=== PATIENT | female | born 1955 | race Caucasian/White ===

== ENCOUNTER 2018-01-05 09:34 | Emergency (ER) | payer OTHER, SELFPAY ==
--- NOTE | 2018-01-05 09:37 | EKG12_ITS ---
Test Reason : Blood Pressure : / mmHG Vent. Rate : 092 BPM Atrial Rate : 092 BPM P-R Int : 168 ms QRS Dur : 078 ms QT Int : 360 ms P-R-T Axes : 047 009 027 degrees QTc Int : 445 ms Normal sinus rhythm Normal ECG Confirmed by EUGENIO ROA, KENNETH ([id number]), assistant editor JULIANNA COWART ([id number]) on 01/08/2018 1:59:09 PM Referred By: Confirmed By:KENNETH BECKER MD
[2018-01-05 09:41] VITALS: BP 153/87; PULSE 100; RESP 19; TEMP 36.9; O2SAT 98; BMI 24.2
[2018-01-05 09:45] VITALS: BP 142/91; PULSE 95; RESP 14; O2SAT 96
--- NOTE | 2018-01-05 09:46 | US_ITS ---
STUDY: ABDOMINAL ULTRASOUND - RIGHT UPPER QUADRANT REASON FOR VISIT: Female, 62 years old. One-day history of right upper quadrant pain. TECHNIQUE: Ultrasound evaluation of the right upper quadrant was performed with real-time and static roche-scale imaging. TECHNICAL QUALITY: Adequate. COMPARISON: Comparison is made with prior study dated March 22, 2012. FINDINGS: Liver: The liver measures 15.8 cm. There is normal echogenicity of the liver. The bile ducts are within normal limits. There is hepatic color flow. The direction of portal flow is hepatopetal. There is no demonstrated mass lesion. Gallbladder: Normal distended gallbladder. The gallbladder wall measures 2.9 mm. There is a negative sonographic Gutierrez's sign. There is no pericholecystic fluid. There are no gallstones. Common Bile Duct (C.B.D.): The common bile duct measures 3.0 mm. Pancreas: Normal size of the head, body and tail of the pancreas. There is normal echogenicity of the pancreas. There is no demonstrated pancreatic mass or cyst. Right Kidney: Normal size of the right kidney. The right kidney measures 9.9 cm x 5.1 cm x 5.1 cm. Normal renal cortex. The right cortex measures 1.2 cm. There is no demonstrated renal mass or cyst. There is no right hydronephrosis. US/Gallbladder IMPRESSION: Normal right upper quadrant ultrasound examination. Electronically Signed: Nathaniel Lundy MD at 10:47 EDT Tel [phone], Service support ,
--- NOTE | 2018-01-05 09:49 | ED.VISSUMM ---
- ER Visit Summary Date of Service: 01/05/18 Chief Complaint: [] Right upper quadrant pain began 7 AM today History of Present Illness: The patient is a 62 F [] past history is for distant stroke with no deficits, and very good health went to sleep feeling fine, woke this morning with pain to the right upper quadrant, she has had no vomiting no fever no cough normal bowel bladder habits she has no history of cardiovascular pulmonary GI ailments of any kind she does have hypertension she takes amitriptyline to prevent headaches, she believes she is on an antacid proton pump type medicine, she has been eating well without difficulty, no fever no cough no exposure tainted food or sick individuals Physical Examination: [] Her vital signs are within normal range she is resting comforting the bed point directly to her right upper quadrant for pain head neck chest unremarkable the abdomen there is vague pain to the right upper quadrant there is no rebound guarding organomegaly upper lower extremities unremarkable back unremarkable neurologically normal Test Results: [] Emergency Department Course and Treatment: screening labs ultrasound pain management The patient's lab studies and UA are generally unremarkable see those reports, her right upper quadrant ultrasound showed nothing acute, she was sent for abdominal CT, the abdominal CT show what appear to be fine gallstones sludge, nothing else acute except some notation of an abnormality that was suspicious in the left kidney, she was then sent for renal ultrasound and that renal scan showed what appeared to be normal cyst left kidney, please see all those reports Evaluation she is resting comfortably she has no physical findings feels improved have explained all the test results to her the need for follow-up with her physicians the concept of the gallstones potentially causing biliary colic versus other causes of her pain should be followed by her family physician also given referral Dr. Rodriguez human resource consultant for surgery and she will refer return for change in symptoms she agrees to this plan Treatment Plan: [] Disposition: [] Home stable Impression: [] Right upper quadrant pain suspect related to gallstones, gallstone seen on CAT scan, cyst left kidney This note was generated with [employer] dictation software. It may contain incorrect words, spelling, and punctuation that were not noted in review of the chart prior to signing ED Disposition - Plan for ED Patient: Chief Complaint: Chest Pain Referrals: Hipolito Ayers PA [PHYSICIAN MEAT SALES AND STORAGE MANAGER] -
[2018-01-05] MEDS: Ondansetron 4 MG/2 ML Vial IV (09:58)
[2018-01-05] MEDS: 0.9% Normal Saline 1,000 ML 125 ML IV (09:58)
[2018-01-05] MEDS: Morphine 4 MG/ML Syringe IV (09:58)
[2018-01-05 10:03] LABS: Absolute Lymphocyte Count 1.76 X10^3/ul (0.83-4.51); Absolute Neutrophil Count 6.5 X10^3/uL (2.0-7.7); Basophil# 0.03 X10^3/uL; Basophil% 0.3 % (0-1); Eosinophil# 0.17 X10^3/uL; Eosinophils% 1.9 % (0-5); Hemoglobin 12.8 g/dl (12.0-15.0); Lymphocyte # 1.76 X10^3/ul (4.0); Lymphocyte % 19.4 % (19-41); Mean Corpuscular Volume 84.4 fL (81-99); Monocyte# 0.63 X10^3/uL; Monocyte% 6.9 % (0-10); Neutrophil # 6.48 X10^3/uL (2.7-7.7); Neutrophil % 71.4 % (47-70); Platelet Count 340 K/mm3 (150-450); RBC Distribution Width CV 13.6 % (11.6-14.6); RBC Distribution Width SD 41.9 fl (35.1-43.9); Red Blood Count 4.74 M/mm3 (4.2-5.4); White Blood Count 9.1 K/mm3 (4.4-11.0)
[2018-01-05 10:18] LABS: AST(SGOT) 21 U/L (15-37); Alanine Aminotransfer ALT/SGPT 31 U/L (13-56); Albumin, Serum 4.2 g/dL (3.2-5.0); Alkaline Phosphatase 84 U/L (45-117); Anion Gap 7 (5-15); BUN 13 mg/dL (7-18); BUN/Creat Ratio 15.5 RATIO (10-20); Bilirubin, Direct 0.12 mg/dL (0.00-0.30); Calcium,Total 8.9 mg/dL (8.5-10.1); Chloride 105 mmol/L (98-107); Creatinine, Serum 0.84 mg/dL (0.55-1.02); EST Glomerular Filtration Rate 73 mL/min (>60); Est Glom Filt Rate - Afr Amer 88 mL/min (>60); Estimated Creatinine Clearance 63.34 ml/min; Globulin 3.6 g/dL (2.2-4.2); Glucose 108 mg/dL (74-106); Lipase 84 U/L (73-393); Potassium 3.9 mmol/L (3.5-5.1); Protein, Total 7.8 g/dL (6.4-8.2); Sodium Level 139 mmol/L (136-145)
[2018-01-05 10:28] LABS: POSITIVE COUNT NO; POSITIVE DIFFERENTIAL NO; POSITIVE MORPHOLOGY NO
[2018-01-05] MEDS: morphine 8 MG/ML Syringe IV (10:57)
[2018-01-05 11:00] VITALS: BP 144/81; PULSE 78; RESP 14; O2SAT 97
--- NOTE | 2018-01-05 11:11 | CT_ITS ---
STUDY: CT ABDOMEN AND PELVIS WITHOUT CONTRAST REASON FOR EXAM: Female, 62 years old. Right upper quadrant pain. RADIATION DOSAGE (If Supplied By Facility): CTDIvol = ( 8.64 ) mGy, DLP = ( 453.50 ) mGycm TECHNIQUE: Transaxial images were obtained from the dome of the diaphragm to the symphysis pubis without oral contrast, and without intravenous contrast. Sagittal and coronal images were reconstructed. Individualized dose optimization techniques were used for this CT. COMPARISON: Comparison is made with prior study dated October 16, 2008. FINDINGS: Mild linear scarring at the lung bases. Coronary artery calcification. Normal liver. I suspect small layering gallstones along the dependent portion of the gallbladder. There are multiple benign calcified granulomata of the spleen. Normal pancreas. Normal bilateral adrenal glands. Normal right kidney. Suspect a 2.2 cm complex cystic mass arising from the superior lateral aspect of the left kidney. Correlation with enhanced T scan of the abdomen or ultrasound is recommended for further evaluation. Normal visualized stomach. Normal small intestine. There are multiple colonic diverticula consistent with diverticulosis. The appendix is visualized and appears normal. There is diffuse atherosclerotic calcification of the abdominal aorta, without a demonstrated aneurysm. Normal inferior vena cava. Normal retroperitoneum. Normal urinary bladder. There is absence of the uterus consistent with a prior hysterectomy. Normal abdominal wall. There are diffuse degenerative changes of the visualized lumbar spine. CT/Abdomen/Pelvis without Cont IMPRESSION: Small layering gallstones along the dependent portion of the gallbladder. Findings suggest a complex cystic structure in the left kidney as described. Correlation with ultrasound is recommended. Electronically Signed: Nathaniel Lundy MD at 11:32 EDT Tel [phone], Service support ,
--- NOTE | 2018-01-05 11:54 | US_ITS ---
STUDY: RENAL ULTRASOUND - COMPLETE REASON FOR EXAM: Female, [address] Evaluate left renal lesion TECHNIQUE: Ultrasound evaluation of the kidneys was performed with real-time and static chahal-scale imaging. COMPARISON: Noncontrast enhanced CT. FINDINGS: RIGHT KIDNEY: Normal location of the right kidney, which is normal in size. The right kidney measures 10.0 cm. There is a normal cortex of the right kidney. The renal cortex measures 1.0 cm. There is no right renal mass or cyst. There are no right renal calculi. There is echogenic focus suggesting prominent vessel. There is no right hydronephrosis. DISTAL RIGHT URETER: There is non-visualization of the distal right ureter. There is no demonstrated right ureterovesical junction calculus. There is no demonstrated right ureteral jet. LEFT KIDNEY: Normal location of the left kidney, which is normal in size. The left kidney measures 10.1 cm. There is a normal cortex of the left kidney. The renal cortex measures 1.6 cm. There is 2.3 cm simple cyst at the upper aspect. There are no left renal calculi. There is no left hydronephrosis. DISTAL LEFT URETER: There is non-visualization of the distal left ureter. There is no demonstrated left ureterovesical junction calculus. There is a visualized left ureteral jet. BLADDER: The distended urinary bladder has a volume of 31 ml. There is a normal wall thickness of the distended urinary bladder. There is no demonstrated mass within the urinary bladder. There are no demonstrated bladder calculi. US/Kidney and Bladder IMPRESSION: Simple cyst of the left kidney. No hydronephrosis. Electronically Signed: Dante Bhatti MD at 13:06 EDT , Service support ,
[2018-01-05 11:57] LABS: Bacteria 0 SEEN /hpf (None Seen); Mucous, Urine 0 SEEN /hpf (<or=2+); Red Blood Cells-Urine 0 SEEN /hpf (0-5)
[2018-01-05 11:59] LABS: Color, Urine Yellow (Yellow); Glucose, Dipstick Normal (Normal); Ketone-Dipstick Negative (Negative); Leukocyte Esterase-Dipstick 25 /ul (Negative); Nitrite-Dipstick Negative (Negative); Occult Blood-Urine 10 /ul (Negative); Protein-Dipstick Negative (Negative); Urine Bilirubin Dipstick Negative (Negative); Urine Clarity Clear (Clear); Urine Urobilinogen Normal (Normal); Urine pH 6.5 (5.0 - 8.0)
[2018-01-05 12:08] LABS: Squamous Epithelial Cells - UA 0-5 SEEN /hpf (5-10); White Blood Cells 0-5 SEEN /hpf (0-5)
[2018-01-05 12:57] VITALS: BP 100/69; PULSE 84; RESP 15; O2SAT 92
--- NOTE | 2018-01-05 13:17 | ED.DEP ---
ED Disposition - Plan for ED Patient: Chief Complaint: Chest Pain Instructions: ED Abdominal Pain Gallstone Poss, ED Abdominal Pain Unkn Cause Referrals: Hipolito Ayers PA [PHYSICIAN [employer]AT[employer]NS[employer]] - Gigi Rodriguez MD [STAFF PHYSICIAN] - Aravind Phelps MD [STAFF PHYSICIAN] -
[2018-01-05 13:31] VITALS: BP 113/75; PULSE 81; RESP 15; O2SAT 94
== END 2018-01-05 13:55 | disposition home or self-care (01) ==
PROVIDERS: Emergency Provider Emergency Medicine; Family Provider Preventive Medicine Occupational Medicine; PCP Preventive Medicine Occupational Medicine
DX: R10.11 Right upper quadrant pain (principal); K80.80 Other cholelithiasis without obstruction; N28.1 Cyst of kidney, acquired
CPT/HCPCS: 74176; 76705; 76770; 80048; 80076; 81001; 83690; 84484; 85025; 93005; 96361; 96374; 96375; 99283; J7030; J2405

== ENCOUNTER → 2018-02-16 07:06 | Outpatient (CLI) | payer OTHER, SELFPAY ==
--- NOTE | 2018-02-16 07:09 | BI_ITS ---
MAMMOGRAPHY - BILATERAL SCREENING REASON FOR EXAM: Female, 62 years old. Routine annual screening examination. PERTINENT HISTORY: Non-contributory. TECHNIQUE: Digital bilateral breast girish (3D mammographic acquisition) in the CC and MLO projections. 2-D mediolateral oblique (MLO) and craniocaudad (CC) views of both breasts were obtained. CAD: Full Field Digital Mammography with Computer Added Detection was performed. COMPARISON: Comparison is made with prior study dated August 11, 2015 and January 21, 2014. FINDINGS: Breast Composition: There are scattered areas of fibroglandular density. There are no dominant masses or suspicious calcifications. Asymmetry of breast tissue where more breast tissue is seen in the upper outer quadrant of the left breast as compared to the right breast. This is slightly more prominent than on prior examination. Correlation with ultrasound is recommended. No other significant abnormalities are identified. BI/SCREENING MAMM (CAD), BILAT IMPRESSION: Asymmetry of breast tissue with more breast tissue is seen in the upper outer quadrant of the left breast as compared to the right side. Correlation with ultrasound is recommended. ASSESSMENT CATEGORY: BIRADS Category 0: Incomplete. Need additional imaging evaluation. A letter regarding these results will be sent to the patient by the facility within 30 days. Approximately 10% of breast cancers are not detected by mammography. A normal mammogram should not delay biopsy of a clinically suspicious abnormality. [id number] Electronically Signed: Nathaniel Lundy MD at 12:57 EDT Tel [phone], Service support ,
== END ==
PROVIDERS: Family Provider Preventive Medicine Occupational Medicine; PCP Preventive Medicine Occupational Medicine; Visit Provider Obstetrics & Gynecology
DX: Z12.31 Encounter for screening mammogram for malignant neoplasm of breast (principal)
CPT/HCPCS: 77063; 77067

== ENCOUNTER → 2018-02-21 15:11 | Outpatient (CLI) | payer OTHER, SELFPAY ==
--- NOTE | 2018-02-21 15:13 | US_ITS ---
STUDY: ULTRASOUND BREAST - LEFT REASON FOR EXAM: Female, 62 years old. Abnormal screening mammogram. TECHNIQUE: Axial and longitudinal images of the LEFT breast were performed with a high resolution ultrasound transducer. COMPARISON: Comparison is made with prior mammogram dated February 16, 2018. FINDINGS: LEFT Breast: The upper outer aspect of the left breast was examined by ultrasound. There is homogeneous fibroglandular tissue. No solid or cystic mass lesion is seen. US/Breast Limited Unilateral IMPRESSION: No sonographic abnormality is seen. ASSESSMENT CATEGORY: BIRADS Category 1: Negative. A letter regarding these results will be sent to the patient by the facility within 30 days. Electronically Signed: Nathaniel Lundy MD at 8:02 EDT Tel [phone], Service support ,
== END ==
PROVIDERS: Family Provider Preventive Medicine Occupational Medicine; PCP Preventive Medicine Occupational Medicine; Visit Provider Obstetrics & Gynecology
DX: R92.8 Other abnormal and inconclusive findings on diagnostic imaging of breast (principal)
CPT/HCPCS: 76642

== ENCOUNTER 2018-05-02 17:29 | Observation (INO) | payer OTHER, SELFPAY ==
--- NOTE | 2018-04-30 12:03 | EKG12_ITS ---
Test Reason : PRE-OP Blood Pressure : / mmHG Vent. Rate : 084 BPM Atrial Rate : 084 BPM P-R Int : 178 ms QRS Dur : 080 ms QT Int : 354 ms P-R-T Axes : 060 021 046 degrees QTc Int : 418 ms Normal sinus rhythm Normal ECG Confirmed by RAJAT ROA, MANUEL ([id number]), visual effects editor MELISSA HERNANDEZ ([id number]) on 05/01/2018 4:16:45 PM Referred By: Aristides Pike Confirmed By:MANUEL EARL MD
--- NOTE | 2018-04-30 12:18 | RAD_ITS ---
STUDY: X-RAY CHEST REASON FOR EXAM: Female, 62 years old. Preoperative evaluation. TECHNIQUE: PA and lateral views of the chest. COMPARISON: None. FINDINGS: The lungs are clear and expanded. There is no demonstrated pleural abnormality. Normal size heart. Normal mediastinum and dax. Normal visualized pulmonary arteries. Normal visualized aortic arch and descending thoracic aorta. There are mild degenerative changes of the visualized thoracic spine. Normal visualized ribs, clavicles, and shoulders. There is no demonstrated abnormality of the visualized soft tissue structures of the upper abdomen. RAD/Chest PA and Lateral IMPRESSION: No acute abnormality is seen. Electronically Signed: Nathaniel Lundy MD at 12:55 EST Tel [phone], Service support ,
[2018-04-30 12:21] LABS: Hematocrit 39.4 % (37-47); Hemoglobin 12.6 g/dl (12.0-15.0); Mean Corpuscular Hgb 26.9 pg (27.0-32.0); Mean Platelet Vol. 8.9 fl (6.2-12.0); Platelet Count 337 K/mm3 (150-450); RBC Distribution Width CV 13.6 % (11.6-14.6); RBC Distribution Width SD 41.6 fl (35.1-43.9); Red Blood Count 4.69 M/mm3 (4.2-5.4); White Blood Count 6.9 K/mm3 (4.4-11.0)
[2018-04-30 12:25] LABS: Scan Indicated on CBC? Y/N NO
[2018-04-30 12:36] LABS: Partial Thromboplast Time 32.5 Seconds (24.1-36.2)
[2018-04-30 13:06] LABS: Anion Gap 13 (5-15); BUN 15 mg/dL (7-18); BUN/Creat Ratio 15.5 RATIO (10-20); Calcium,Total 8.9 mg/dL (8.5-10.1); Chloride 104 mmol/L (98-107); Creatinine, Serum 0.97 mg/dL (0.55-1.02); EST Glomerular Filtration Rate 62 mL/min (>60); Est Glom Filt Rate - Afr Amer 75 mL/min (>60); Glucose 119 mg/dL (74-106); Potassium 3.6 mmol/L (3.5-5.1); Sodium Level 140 mmol/L (136-145)
[2018-05-02] VITALS (7 sets, daily range): BP systolic 83–137; BP diastolic 54–87; PULSE 64–91; RESP 12–16; TEMP 36.1–36.8; O2SAT 93–95; BMI 26.7; BMI 27.0
[2018-05-02] MEDS: Vasopressin 20 UNITS/ML Vial (09:33)
--- NOTE | 2018-05-02 09:40 | VAGMU_PTH ---
PATIENT: KANIKA LOVELL LOC: [facility] U#:[id number] AGE/SX: 62/F ROOM: [facility] RE05/02/[address]: Dr. Aristides Pike MD : [id number] BED: 1 DIS: 05/03/2018 SPEC #: [id number] RECD: 05/02/18 11:52 STATUS: JUANA REAnnita #: [id number] ELLEN: 05/02/18 09:[address]: Aristides Pike DEPT: SURGICAL PATHOLOGY RECD BY: Juan Antonio Tejeda ENTERED: 05/02/18 12:14 SP TYPE: VAG MUCOSA OTHR DR: Dr. Espinoza Lora, DO Tissues: Vagina, NOS Procedures: Surgery Specimen Level II HEADER OPERATION: Repair, anterior and posterior PRE-OP DIAGNOSIS: Cystocele and rectocele TISSUE SUBMITTED: Vaginal mucosa MICROSCOPIC DIAGNOSIS Vaginal mucosa, anterior and posterior repair, excision: Mild chronic inflammation. No evidence of dysplasia. AM:gregoria 05/03/18 MICROSCOPIC DESCRIPTION Slides are reviewed. GROSS DESCRIPTION Received in fixative is one container labeled with the patient's name and designated vaginal mucosa. The specimen consists of five variable size pieces of ayala mucosal tissue measuring in aggregate 8 x 4 x 0.7 cm. No mucosal lesion is identified. Multiple instrumentation su are noted. Inspector Finishing sections are submitted in one cassette. / SJ:gregoria 05/02/18 TC:3 CPT: 61677
--- NOTE | 2018-05-02 09:57 | DCINST_ITS ---
You will use the following diet at home:: No restrictions Your food should be the consistency of: Regular Discharge Activity: Return to Normal Activity, May Drive, May not drive while taking narcotic pain medications., May Shower Return to work on:: 05/16/18 May shower in (days): 0 May resume sexual activity in: 6 weeks Call your doctor if your incision/area has: Sudden Increased Bleeding, Increased Pain/ Swelling, Foul Smelling Discharge Call your doctor if you observe: Fever of 101 or Higher, Inability to urinate, Inability to have a bowel movement, Using more than one pad per hour, Shortness of breath, Chest pain, Calf discomfort, Uncontrolled pain Cleanse incision/area with: Soap & Water Allergies/Adverse Reactions: Allergies No Known Allergies Allergy (Verified 05/02/18 08:03) Medications to take at Discharge Amitriptyline HCl 50 mg PO DAILY 11/17/13 Aspirin [Aspirin, Baby] 81 mg PO DAILY@0800 03/23/14 Famotidine [Pepcid] 20 mg PO DAILY 10/17/16 L.acidoph,Paracasei, B.lactis [Probiotic] 1 each PO DAILY 10/17/16 Multivit with Calcium,Iron,Min [Multiple Vitamins For Women] 1 tab PO DAILY 10/17/16 Pravastatin Sodium 40 mg PO DAILY 10/17/16 Quinapril HCl [Accupril] 40 mg PO DAILY 10/17/16 Acetaminophen [Tylenol Tablet] 650 mg PO Q4H PRN PRN #0 tab 10/19/16 Lorazepam [Ativan] 1 mg PO TID PRN #10 tab 10/27/16 Ibuprofen 600 mg PO 4X/DAY #30 tab 05/02/18 Oxycodone [Oxyir] 5 mg PO Q6H PRN PRN 7 Days #20 tab 05/02/18 The following prescriptions were given: Oxycodone [Oxyir] 5 mg PO Q6H PRN PRN 7 Days #20 tab PRN Reason: Severe Pain (6-03/14) Ibuprofen 600 mg PO 4X/DAY #30 tab Primary Care Physician: Espinoza Lora DO [Primary Care Provider] - Test Results: Test results from this visit will be discussed in further detail at your follow- up appointment, if applicable. Please Follow Up With: Aristides Pike MD When: one week Proposed Discharge Date: 05/02/18
--- NOTE | 2018-05-02 09:58 | PCM.OPRPT ---
Report of Operation Date of Procedure: 05/02/18 Pre-Operative Diagnosis: Cystocele, Rectocele Post-Operative Diagnosis: Same Surgery/Procedure Performed:: Anterior and Posterior Repair Description of Surgical Findings:: Cystocele (moderate), Rectocele (Mild) retail furniture sales: Cecilia Whelan Type of Anesthesia:: General Anesthesiologist: Shaun Dent Special Medications: none Specimen's removed: vaginal mucosa Drains: none Estimated Blood Loss (mL): 10cc Fluids Replaced: 1200cc Description of Procedure: Lauren was taken to the OR with IV running. She was given two grams of Cefotetan intravenously for surgical prophylaxis. SCDs were in place and operational throughout the case and into recovery. General anesthesia was introduced without complication. She was prepped and draped in the dorsal lithotomy position. The bladder was then drained. A weighted speculum was placed in the posterior vagina. An Allis clamp was placed on the vaginal mucosa about 1.5 cm distal to the urethral meatus. A second Allis clamp was placed at the apex of the cystocele. The vaginal mucosa was then infiltrated superficially with a dilute pitressin solution. A scalpel was used to incise the vaginal mucosa between to previously placed Allis clamps. The vaginal mucosa was then dissected laterally on each side thus exposing the cystocele. Using a series of 0-Vicryl box stitches the cystocele was reduced. The vaginal mucosa was trimmed and reapproximated with interrupted sutures of 0-Vicryl suture. A chun catheter was placed and urine was noted to be clear. It was then removed. Attention was then directed to the posterior vagina. The rectocele was then grasped with two Allis clamps at the distal and proximal portions of the vagina in the midline. The vaginal mucosa was infiltrated with a dilute pitressin solution. A scalpel was used to incise the vagina between the two Allis clamps. The vaginal mucosa was then dissected bilaterally thus revealing the rectocele. The muscle tissues were reapproximated thus reducing the rectocele. The vaginal mucosa was trimmed and then reapproximated with 0-Vicryl interrupted sutures. Hemostasis was good. Sponge, lap, needle and instrument counts were correct. She was reversed from anesthesia and taken to the recovery room in stable condition. Grafts/Implants Used: none - Complications none - Admit VTE Documentation VTE Present on Admission: No VTE Mechan Device Prophylaxis: SCD's VTE Pharm Prophylaxis ordered?: No
--- NOTE | 2018-05-02 10:05 | OP.PCM_ITS ---
Report of Operation Date of Procedure: 05/02/18 Pre-Operative Diagnosis: Cystocele, Rectocele Post-Operative Diagnosis: Same Surgery/Procedure Performed:: Anterior and Posterior Repair Description of Surgical Findings:: Cystocele (moderate), Rectocele (Mild) cream dumper: Cecilia Whelan Type of Anesthesia:: General Anesthesiologist: Shaun Dent Special Medications: none Specimen's removed: vaginal mucosa Drains: none Estimated Blood Loss (mL): 10cc Fluids Replaced: 1200cc Description of Procedure: Lauren was taken to the OR with IV running. She was given two grams of Cefotetan intravenously for surgical prophylaxis. SCDs were in place and operational throughout the case and into recovery. General anesthesia was introduced without complication. She was prepped and draped in the dorsal lithotomy position. The bladder was then drained. A weighted speculum was placed in the posterior vagina. An Allis clamp was placed on the vaginal mucosa about 1.5 cm distal to the urethral meatus. A second Allis clamp was placed at the apex of the cystocele. The vaginal mucosa was then infiltrated superficially with a dilute pitressin solution. A scalpel was used to incise the vaginal mucosa between to previously placed Allis clamps. The vaginal mucosa was then dissected laterally on each side thus exposing the cystocele. Using a series of 0-Vicryl box stitches the cystocele was reduced. The vaginal mucosa was trimmed and reapproximated with interrupted sutures of 0-Vicryl suture. A chun catheter was placed and urine was noted to be clear. It was then removed. Attention was then directed to the posterior vagina. The rectocele was then grasped with two Allis clamps at the distal and proximal portions of the vagina in the midline. The vaginal mucosa was infiltrated with a dilute pitressin solution. A scalpel was used to incise the vagina between the two Allis clamps. The vaginal mucosa was then dissected bilaterally thus revealing the rectocele. The muscle tissues were reapproximated thus reducing the rectocele. The vaginal mucosa was trimmed and then reapproximated with 0- Vicryl interrupted sutures. Hemostasis was good. Sponge, lap, needle and instrument counts were correct. She was reversed from anesthesia and taken to the recovery room in stable condition. Grafts/Implants Used: none - Complications none - Admit VTE Documentation VTE Present on Admission: No VTE Mechan Device Prophylaxis: SCD's VTE Pharm Prophylaxis ordered?: No
[2018-05-02] MEDS: Lactated Ringers 1,000 ML 125 ML IV ×2 (10:56→21:38)
[2018-05-02] MEDS: Pravastatin 40 MG Tablet PO (21:42)
[2018-05-02] MEDS: Amitriptyline 25 MG Tablet 50 MG PO (21:43)
[2018-05-03 03:30] VITALS: BP 134/73; PULSE 89; RESP 16; TEMP 37.1; O2SAT 96
[2018-05-03] MEDS: Lactated Ringers 1,000 ML 125 ML IV (05:23)
[2018-05-03] MEDS: 0.9% NaCl Peripheral Flush Adult/Peds IV (05:24)
[2018-05-03 06:32] LABS: Hematocrit 34.5 % (37-47); Hemoglobin 11.1 g/dl (12.0-15.0); Mean Corp Hgb Conc 32.2 g/gl (32-36); Mean Corpuscular Hgb 27.3 pg (27.0-32.0); Mean Platelet Vol. 9.5 fl (6.2-12.0); Platelet Count 341 K/mm3 (150-450); RBC Distribution Width CV 13.5 % (11.6-14.6); RBC Distribution Width SD 41.6 fl (35.1-43.9); Red Blood Count 4.06 M/mm3 (4.2-5.4)
[2018-05-03 06:36] LABS: Creatinine, Serum 0.77 mg/dL (0.55-1.02); Estimated Creatinine Clearance 66.42 ml/min
[2018-05-03 06:37] LABS: EST Glomerular Filtration Rate 80 mL/min (>60); Est Glom Filt Rate - Afr Amer 97 mL/min (>60); Scan Indicated on CBC? Y/N NO
--- NOTE | 2018-05-03 08:03 | PCM.PN.OB ---
Patient Problems: Active and Suspected Problems Cystocele, midline (Acute) Subjective: Not able to void yet but has only had catheter out for one hour. No complaints of pain. No significant vaginal bleeding. Objective: Afeb VSS. Hgb appropriate. Creatinine normal this morning. - Physical Exam General: Alert, Oriented x3, Cooperative, No apparent distress Lungs: Clear to auscultation, Normal air movement Cardiovascular: Regular rate, Regular Rhythm Abdomen: Soft, Non Tender, Non-Distended Extremities: No edema Skin: No rashes Neurological: Neuro grossly intact Psych/Mental Status: Normal Affect Vital Signs Temp Pulse Resp BP Pulse Ox 98.8 F 89 16 134/73 H 96 05/03/18 03:30 05/03/18 03:30 05/03/18 03:30 05/03/18 03:30 05/03/18 03:30 Oxygen Flow Rate (L/min) 1 Oxygen Delivery Method Room Air Weight: 162 lb 7.691 oz Body Mass Index (BMI) 27.0 Finger Stick Blood Glucose 92 Intake and Output for Last 24 Hours 05/01/18 05/02/18 05/03/18 23:59 23:59 23:59 Intake Total 4942 / 4942 680 / 680 Output Total 1500 / 1500 500 / 500 Balance 3442 / 3442 180 / 180 Laboratory Tests Past 24 Hrs 05/03/18 05/03/18 06:10 06:10 WBC 13.0 H RBC 4.06 L Hgb 11.1 L Hct 34.5 L MCV 85.0 MCH 27.3 MCHC 32.2 RDW 13.5 RDW Differential 41.6 Plt Count 341 MPV 9.5 Creatinine 0.77 Estim Creat Clear Calc 66.42 Est GFR (MDRD) Af Amer 97 Est GFR (MDRD) Non-Af 80 Medical Necessity - Tobacco Use Smoking Status: Former smoker Assessment/Plan All Active Problems Cystocele (Acute) Cystocele with prolapse (Acute) Cystocele, midline (Acute) CVA (cerebral vascular accident) (Acute) TIA (transient ischemic attack) (Acute) POD #1 s/p cystocele and rectocele repair. No spontaneous void yet. Urine output is adequate. If unable to void will discharge home with catheter and will remove next week. Discharge instructions and warnings given.
--- NOTE | 2018-05-03 08:09 | PCM.DC.SUM ---
Discharge Date and Diagnosis - Problem List Patient Problems: Active and Suspected Problems Cystocele, midline (Acute) Date of Admission: 05/02/18 Date of Discharge: 05/03/18 - Primary Discharge Diagnosis Active and Suspected Problems Cystocele, midline (Acute), s/p anterior and posterior vaginal repair - Secondary Discharge Diagnosis Chronic Problems HTN (hypertension) (Chronic) Hyperlipidemia (Chronic) Migraine (Chronic) Hospital Course and Treatment Operations: - - cystocele and rectocele repair Summary of Care Provided: The patient is a 62 year old F [admitted for repair of cystocele and rectocele. These were performed without complication. There was transient inability to void. She was discharged home on POD#1.] Patient Problems: Active and Suspected Problems Cystocele, midline (Acute) - Physical Exam Vital Signs Temp Pulse Resp BP Pulse Ox 98.8 F 89 16 134/73 H 96 05/03/18 03:30 05/03/18 03:30 05/03/18 03:30 05/03/18 03:30 05/03/18 03:30 Oxygen Flow Rate (L/min) 1 Oxygen Delivery Method Room Air Weight: 162 lb 7.691 oz Body Mass Index (BMI) 27.0 Finger Stick Blood Glucose 92 Intake and Output for Last 24 Hours 05/01/18 05/02/18 05/03/18 23:59 23:59 23:59 Intake Total 4942 / 4942 680 / 680 Output Total 1500 / 1500 500 / 500 Balance 3442 / 3442 180 / 180 Laboratory Tests Past 24 Hrs 05/03/18 05/03/18 06:10 06:10 WBC 13.0 H RBC 4.06 L Hgb 11.1 L Hct 34.5 L MCV 85.0 MCH 27.3 MCHC 32.2 RDW 13.5 RDW Differential 41.6 Plt Count 341 MPV 9.5 Creatinine 0.77 Estim Creat Clear Calc 66.42 Est GFR (MDRD) Af Amer 97 Est GFR (MDRD) Non-Af 80 Discharge Activity: Return to Normal Activity, May Drive, May not drive while taking narcotic pain medications., May Shower Return to work on:: 05/16/18 May shower in (days): 0 May resume sexual activity in: 6 weeks Call your doctor if your incision/area has: Sudden Increased Bleeding, Increased Pain/ Swelling, Foul Smelling Discharge Call your doctor if you observe: Fever of 101 or Higher, Inability to urinate, Inability to have a bowel movement, Using more than one pad per hour, Shortness of breath, Chest pain, Calf discomfort, Uncontrolled pain Cleanse incision/area with: Soap & Water Catheter: Whitten to leg bag - if no void Home Medications: Medications to take at Discharge Amitriptyline HCl 50 mg PO DAILY 11/17/13 Aspirin [Aspirin, Baby] 81 mg PO DAILY@0800 03/23/14 Famotidine [Pepcid] 20 mg PO DAILY 10/17/16 L.acidoph,Paracasei, B.lactis [Probiotic] 1 each PO DAILY 10/17/16 Multivit with Calcium,Iron,Min [Multiple Vitamins For Women] 1 tab PO DAILY 10/17/16 Pravastatin Sodium 40 mg PO DAILY 10/17/16 Quinapril HCl [Accupril] 40 mg PO DAILY 10/17/16 Acetaminophen [Tylenol Tablet] 650 mg PO Q4H PRN PRN #0 tab 10/19/16 Lorazepam [Ativan] 1 mg PO TID PRN #10 tab 10/27/16 Ibuprofen 600 mg PO 4X/DAY #30 tab 05/02/18 Oxycodone [Oxyir] 5 mg PO Q6H PRN PRN 7 Days #20 tab 05/02/18 Following Prescrptions Were Given to Patient: Oxycodone [Oxyir] 5 mg PO Q6H PRN PRN 7 Days #20 tab PRN Reason: Severe Pain (6-10/10) Ibuprofen 600 mg PO 4X/DAY #30 tab Primary Care Physician: Espinoza Lora DO [Primary Care Provider] - Please Follow Up With: Aristides Pike MD When: one week Disposition: Home Minutes spent on discharge:: 15 Patient Condition:: Good Medical Necessity - Tobacco Use Smoking Status: Former smoker Meaningful Use Info Meaningful Use Diagnoses (Choose all that apply): None applicable
[2018-05-03 08:35] VITALS: BP 130/74; PULSE 75; RESP 16; TEMP 36.8; O2SAT 97
[2018-05-03] MEDS: Famotidine 20 MG Tablet PO (08:47)
[2018-05-03] MEDS: Aspirin 81 MG TAB.CHEW PO (08:47)
[2018-05-03 11:03] VITALS: O2SAT 96
[2018-05-03 12:44] VITALS: BP 137/79; PULSE 83; RESP 14; TEMP 36.7; O2SAT 97
--- OUTSIDE RECORDS SUMMARY | 2018-06-27 12:07 | XMS RPT_ITS ---
:1955 Author Organization [place] Support Name Relationship Address Phone [facility] Unavailable [address] + [place] [address] SUPA WESTON Un[address] + [place] [address] NICOLASA LOVELL Unavailable [address] + [place] [address] [facility] Unavailable [address] + [place] [address] SUPA [place]ST[place] Un[address] + [place] [address] NICOLASA LOVELL Unavailable [address] + [place] [address] [facility] Unavailable [address] + [place] [address] SUPA WESTON Un[address] + [place] [address] NICOLASA LOVELL Unavailable [address] + [place] [address] [facility] Unavailable [address] + [place] [address] SUPA WESTON Un[address] + [place] [address] NICOLASA LOVELL Unavailable [address] + [place] [address] [facility] Unavailable [address] + [place] [address] SUPA WESTON Un[address] + [place] [address] NICOLASA LOVELL Unavailable [address] + [place] [address] NICOLASA LOVELL Unavailable [address] + [place] [address] NICOLASA LOVELL Unavailable [address] + [place] [address] Care Team Providers Name Role Phone AMADOU LORA Attending Unavailable CARLOTA LARES, MR. WOO Primary Care Unavailable NithinaleLinda lanier Attending Unavailable Amadou Lora Primary Care Unavailable Glendy, Aristides Attending Unavailable Glendy, Aristides Referring Unavailable Amadou Lora Primary Care Unavailable Sealion, Aristides Attending Unavailable Amadou Lora Primary Care Unavailable Seals, Aristides Attending Unavailable Seals, Aristides Referring Unavailable Amadou Lora Primary Care Unavailable Aristides Pike Admitting Unavailable Leonid Molina Attending Unavailable Aristides Pike Referring Unavailable PROBLEMS PROBLEMS DATE TYPE CONDITION / CODE ATTENDING STATUS SOURCE 05/03/2018 Unknown G89.18 - Other acute Aristides Pike Active [place] [facility] / G89.18(ICD-10) Hospital Repository 05/10/2018 Unknown I10 - Essential Leonid Molina Active [place] (primary) [facility] hypertension / Hospital I10(ICD-10) Repository PROCEDURES PROCEDURES No Procedure Records FoundRESULTS RESULTS 12 LEAD ELECTROCARDIOGRAM Observed: 05/04/2018 Status: F Source: [place] 9:25 AM [facility] REPOSITORY [facility] Cardiovascular Services [address] [place] [address] 12 Lead EKG 04/30/18 1214 MR#: [id number] Acct: [id number] Name: LAUREN LOVELL Rep #: [id number] : 1955 62 From: Leonid Molina MD Attending Dr: Aristides Pike MD Status: DIS ISABEL Ordering Dr: Aristides Pike MD Date: 04/30/18 Location: [facility] Sex: F C Admitted: 05/02/18 Test Reason : PRE-OP Blood Pressure : / mmHG Vent. Rate : 084 BPM Atrial Rate : 084 BPM P-R Int : 178 ms QRS Dur : 080 ms QT Int : 354 ms P-R-T Axes : 060 021 046 degrees QTc Int : 418 ms Normal sinus rhythm Normal ECG Confirmed by LEONID MOLINA MD ([id number]), online content editor MELISSA HERNANDEZ ([id number]) on 05/01/2018 4:16:45 PM Referred By: Aristides Pike Confirmed By:LEONID MOLINA MD 05/01/18 1616 Date Leonid Molina MD CC: Aristides Pike MD; Amadou Lora DO Signed DISCHARGE SUMMARY Observed: 05/03/2018 Status: F Source: [place] 8:12 AM [facility] Medical Records Department [address] [place] [address] Discharge Summary 05/03/18 0809 MR#: [id number] Acct: [id number] Name: LAUREN LOVELL Rep #: [id number] : 1955 62 From: Aristides Pike MD PCP: Amadou Lora DO Status: ADM ISABEL Y Location: [place] [address] Discharge Date and Diagnosis - Problem List Patient Problems: Active and Suspected Problems Cystocele, midline (Acute) Date of Admission: 05/02/18 Date of Discharge: 05/03/18 - Primary Discharge Diagnosis Active and Suspected Problems Cystocele, midline (Acute), s/p anterior and posterior vaginal repair - Secondary Discharge Diagnosis Chronic Problems HTN (hypertension) (Chronic) Hyperlipidemia (Chronic) Migraine (Chronic) Hospital Course and Treatment Operations: - - cystocele and rectocele repair Summary of Care Provided: The patient is a 62 year old F [admitted for repair of cystocele and rectocele. These were performed without complication. There was transient inability to void. She was discharged home on POD#1.] Patient Problems: Active and Suspected Problems Cystocele, midline (Acute) - Physical Exam Vital Signs Temp Pulse Resp BP Pulse Ox 98.8 F 89 16 134/73 H 96 05/03/18 03:30 05/03/18 03:30 05/03/18 03:30 05/03/18 03:30 05/03/18 03:30 Oxygen Flow Rate (L/min) 1 Oxygen Delivery Method Room Air Weight: 162 lb 7.691 oz Body Mass Index (BMI) 27.0 Finger Stick Blood Glucose 92 Intake and Output for Last 24 Hours Intake Total 4942 / 4942 680 / 680 Output Total 1500 / 1500 500 / 500 Balance 3442 / 3442 180 / 180 Laboratory Tests Past 24 Hrs WBC 13.0 H RBC 4.06 L Hgb 11.1 L Hct 34.5 L MCV 85.0 MCH 27.3 Discharge Activity: Return to Normal Activity, May Drive, May not drive while taking narcotic pain medications., May Shower Return to work on:: 05/16/18 May shower in (days): 0 May resume sexual activity in: 6 weeks Call your doctor if your incision/area has: Sudden Increased Bleeding, Increased Pain/ Swelling, Foul Smelling Discharge Call your doctor if you observe: Fever of 101 or Higher, Inability to urinate, Inability to have a bowel movement, Using more than one pad per hour, Shortness of breath, Chest pain, Calf discomfort, Uncontrolled pain Cleanse incision/area with: Soap AND Water Catheter: Chun to leg bag - if no void Home Medications: Medications to take at Discharge Amitriptyline HCl 50 mg PO DAILY 11/17/13 Aspirin [Aspirin, Baby] 81 mg PO DAILY@0800 03/23/14 Famotidine [Pepcid] 20 mg PO DAILY 10/17/16 L.acidoph,Paracasei, B.lactis [Probiotic] 1 each PO DAILY 10/17/16 Multivit with Calcium,Iron,Min [Multiple Vitamins For Women] 1 tab PO DAILY 10/17/16 Pravastatin Sodium 40 mg PO DAILY 10/17/16 Quinapril HCl [Accupril] 40 mg PO DAILY 10/17/16 Acetaminophen [Tylenol Tablet] 650 mg PO Q4H PRN PRN #0 tab 10/19/16 Lorazepam [Ativan] 1 mg PO TID PRN #10 tab 10/27/16 Ibuprofen 600 mg PO 4X/DAY #30 tab 05/02/18 Oxycodone [Oxyir] 5 mg PO Q6H PRN PRN 7 Days #20 tab 05/02/18 Following Prescrptions Were Given to Patient: Oxycodone [Oxyir] 5 mg PO Q6H PRN PRN 7 Days #20 tab PRN Reason: Severe Pain (6-03/14) Ibuprofen 600 mg PO 4X/DAY #30 tab Primary Care Physician: Amadou Lora DO [Primary Care Provider] - Please Follow Up With: Aristides Pike MD When: one week Disposition: Home Minutes spent on discharge:: 15 Patient Condition:: Good Medical Necessity - Tobacco Use Smoking Status: Former smoker Meaningful Use Info Meaningful Use Diagnoses (Choose all that apply): None applicable 05/03/18811 <Electronically signed by Aristides Pike MD> Date Aristides Pike MD Cosigner Signature (if applicable): Date CC: Aristides Pike MD; Amadou Lora DO Signed SERUM CREATININE AND Collected: 05/03/2018 Status: F Source: [place] GFR 6:10 AM [facility] TYPE CODE TESTS RESULT OUT OF RANGE REFERENCE UNITS LAB L501.1100 0.55-1.02 mg/dL Normal 0.77 CREAT,SERUM Result Comment: The validity of the calculated GFR AND GFRAA in patients over 70 years has not been determined. Clinical correlation is essential. LAB L501.1110 >60 mL/min Normal EST GFR 80 Result Comment: Non- GFR Calc LAB L501.1115 >60 mL/min Normal EST GFR - AA 97 Result Comment: GFR Calc LAB L501.1255 ml/min Normal Estimated CRCL 66.42 Performed By: #### L501.1105 #### [facility] Laboratory [facility] [address] [place], [place], [address] CBC-COMPLETE BLOOD CNT Collected: 05/03/2018 Status: F Source: [place] NO DIFF 6:10 AM [facility] TYPE CODE TESTS RESULT OUT OF RANGE REFERENCE UNITS LAB L100.1000 4.4-11.0 K/mm3 High WBC 13.0 LAB L100.1200 4.2-5.4 M/mm3 Low RBC 4.06 LAB L100.1300 12.0-15.0 g/dl Low HGB 11.1 LAB L100.1400 37-47 % Low HCT 34.5 LAB L100.1500 81-99 fL Normal MCV 85.0 LAB L100.1600 27.0-32.0 pg Normal MCH 27.3 LAB L100.1700 32-36 g/gl Normal MCHC 32.2 LAB L100.1810 11.6-14.6 % Normal RDW CV 13.5 LAB L100.1820 35.1-43.9 fl Normal RDW SD 41.6 LAB L100.1900 150-450 K/mm3 Normal PLT 341 LAB L100.2000 6.2-12.0 fl Normal MPV 9.5 Performed By: #### L100.0500 #### [facility] Laboratory [address] [facility] [place], [address] OPERATIVE REPORT Observed: 05/02/2018 Status: F Source: [place] 12:16 PM [facility] Medical Records Department [address] [place] [address] Operative Report 05/02/18 0958 MR#: [id number] Acct: [id number] Name: LAUREN LOVELL Rep #: [id number] : 1955 62 From: Aristides Pike MD PCP: Amadou Lora DO Status: REG [facility] Y Location: [place] [address] Report of Operation Date of Procedure: 05/02/18 Pre-Operative Diagnosis: Cystocele, Rectocele Post-Operative Diagnosis: Same Surgery/Procedure Performed:: Anterior and Posterior Repair Description of Surgical Findings:: Cystocele (moderate), Rectocele (Mild) senior maintenance mechanic: Cecilia Whelan Type of Anesthesia:: General Anesthesiologist: Shaun Dent Special Medications: none Specimen's removed: vaginal mucosa Drains: none Estimated Blood Loss (mL): 10cc Fluids Replaced: 1200cc Description of Procedure: Lauren was taken to the OR with IV running. She was given two grams of Cefotetan intravenously for surgical prophylaxis. SCDs were in place and operational throughout the case and into recovery. General anesthesia was introduced without complication. She was prepped and draped in the dorsal lithotomy position. The bladder was then drained. A weighted speculum was placed in the posterior vagina. An Allis clamp was placed on the vaginal mucosa about 1.5 cm distal to the urethral meatus. A second Allis clamp was placed at the apex of the cystocele. The vaginal mucosa was then infiltrated superficially with a dilute pitressin solution. A scalpel was used to incise the vaginal mucosa between to previously placed Allis clamps. The vaginal mucosa was then dissected laterally on each side thus exposing the cystocele. Using a series of 0-Vicryl box stitches the cystocele was reduced. The vaginal mucosa was trimmed and reapproximated with interrupted sutures of 0-Vicryl suture. A chun catheter was placed and urine was noted to be clear. It was then removed. Attention was then directed to the posterior vagina. The rectocele was then grasped with two Allis clamps at the distal and proximal portions of the vagina in the midline. The vaginal mucosa was infiltrated with a dilute pitressin solution. A scalpel was used to incise the vagina between the two Allis clamps. The vaginal mucosa was then dissected bilaterally thus revealing the rectocele. The muscle tissues were reapproximated thus reducing the rectocele. The vaginal mucosa was trimmed and then reapproximated with 0-Vicryl interrupted sutures. Hemostasis was good. Sponge, lap, needle and instrument counts were correct. She was reversed from anesthesia and taken to the recovery room in stable condition. Grafts/Implants Used: none - Complications none - Admit VTE Documentation VTE Present on Admission: No VTE Mechan Device Prophylaxis: SCD's VTE Pharm Prophylaxis ordered?: No 05/02/18 1216 <Electronically signed by Aristides Pike MD> Date Aristides Pike MD CC: Aristides Pike MD; Amadou Lora DO Signed DISCHARGE INSTRUCTION Observed: 05/02/2018 Status: F Source: [place] 9:57 AM [facility] Medical Records Department [address] [place] [address] Instructions for Home/Discharge Instructions 05/02/18 0954 MR#: [id number] Acct: [id number] Name: LAUREN LOVELL Rep #: [id number] : 1955 62 From: Aristides Pike MD PCP: Amadou Lora DO Status: REG [facility] You will use the following diet at home:: No restrictions Your food should be the consistency of: Regular Discharge Activity: Return to Normal Activity, May Drive, May not drive while taking narcotic pain medications., May Shower Return to work on:: 05/16/18 May shower in (days): 0 May resume sexual activity in: 6 weeks Call your doctor if your incision/area has: Sudden Increased Bleeding, Increased Pain/ Swelling, Foul Smelling Discharge Call your doctor if you observe: Fever of 101 or Higher, Inability to urinate, Inability to have a bowel movement, Using more than one pad per hour, Shortness of breath, Chest pain, Calf discomfort, Uncontrolled pain Cleanse incision/area with: Soap AND Water Allergies/Adverse Reactions: Allergies No Known Allergies Allergy (Verified 05/02/18 08:03) Medications to take at Discharge Amitriptyline HCl 50 mg PO DAILY 11/17/13 Aspirin [Aspirin, Baby] 81 mg PO DAILY@0800 03/23/14 Famotidine [Pepcid] 20 mg PO DAILY 10/17/16 L.acidoph,Paracasei, B.lactis [Probiotic] 1 each PO DAILY 10/17/16 Multivit with Calcium,Iron,Min [Multiple Vitamins For Women] 1 tab PO DAILY 10/17/16 Pravastatin Sodium 40 mg PO DAILY 10/17/16 Quinapril HCl [Accupril] 40 mg PO DAILY 10/17/16 Acetaminophen [Tylenol Tablet] 650 mg PO Q4H PRN PRN #0 tab 10/19/16 Lorazepam [Ativan] 1 mg PO TID PRN #10 tab 10/27/16 Ibuprofen 600 mg PO 4X/DAY #30 tab 05/02/18 Oxycodone [Oxyir] 5 mg PO Q6H PRN PRN 7 Days #20 tab 05/02/18 The following prescriptions were given: Oxycodone [Oxyir] 5 mg PO Q6H PRN PRN 7 Days #20 tab PRN Reason: Severe Pain (6-03/14) Ibuprofen 600 mg PO 4X/DAY #30 tab Primary Care Physician: Amadou Lora DO [Primary Care Provider] - Test Results: Test results from this visit will be discussed in further detail at your follow-up appointment, if applicable. Please Follow Up With: Aristides Pike MD When: one week Proposed Discharge Date: 05/02/18 05/02/18 0957 <Electronically signed by Aristides Pike MD> Date Aristides Pike MD CC: Amadou Lora DO VAGINAL MUCOSA Observed: 05/02/2018 Status: F Source: [place] 9:40 AM [facility] Patient: LAUREN LOVELL : 1955 (62/F) Acct Num: [id number] Phys: Glendy ROA,Aristides Unit Num: [id number] Loc: MS3 [id number] Specimen: [id number] Received: 05/02/18 - 1151 Spec Type: VAG MUCOSA TISSUES 1 TISSUES: Vagina, NOS GROSS DESCRIPTION Received in fixative is one container labeled with the patient's name and designated vaginal mucosa. The specimen consists of five variable size pieces of ayala mucosal tissue measuring in aggregate 8 x 4 x 0.7 cm. No mucosal lesion is identified. Multiple instrumentation su are noted. Mortar Carrier sections are submitted in one cassette. / SJ:gregoria 05/02/18 TC:3 CPT: 97995 HEADER OPERATION: Repair, anterior and posterior PRE-OP DIAGNOSIS: Cystocele and rectocele TISSUE SUBMITTED: Vaginal mucosa MICROSCOPIC DESCRIPTION Slides are reviewed. MICROSCOPIC DIAGNOSIS Vaginal mucosa, anterior and posterior repair, excision: Mild chronic inflammation. No evidence of dysplasia. AM:gregoria 05/03/18 Signed Will [facility] 05/03/18 <signature on file> Performed By: #### PVAGMU #### [facility] Laboratory [address] [place], [place], [address] CHEST PA AND LATERAL Observed: 04/30/2018 Status: F Source: [place] 12:18 PM [facility] Imaging Services [address] [place] [address] Chest PA and Lateral MR#: [id number] Acct: [id number] Name: LAUREN LOVELL Rep #: [id number] : 1955 F 62 From: Nathaniel Lundy MD PCP: Amadou Lora DO Status: PRE [facility] Study: Chest PA and Lateral Date of Exam: 04/30/18 Exam# [id number] Ordering Dr: Aristides Pike MD STUDY: X-RAY CHEST REASON FOR EXAM: Female, 62 years old. Preoperative evaluation. TECHNIQUE: PA and lateral views of the chest. COMPARISON: None. FINDINGS: The lungs are clear and expanded. There is no demonstrated pleural abnormality. Normal size heart. Normal mediastinum and dax. Normal visualized pulmonary arteries. Normal visualized aortic arch and descending thoracic aorta. There are mild degenerative changes of the visualized thoracic spine. Normal visualized ribs, clavicles, and shoulders. There is no demonstrated abnormality of the visualized soft tissue structures of the upper abdomen. RAD/Chest PA and Lateral IMPRESSION: No acute abnormality is seen. Electronically Signed: Nathaniel Lundy MD at 12:55 EST Tel [phone], Service support , CC: Aristides Pike MD; Amadou Lroa DO Shearing Machine Feeder: Signed CBC-COMPLETE BLOOD CNT Collected: 04/30/2018 Status: F Source: [place] NO DIFF 11:55 AM [facility] TYPE CODE TESTS RESULT OUT OF RANGE REFERENCE UNITS LAB L100.1000 4.4-11.0 K/mm3 Normal WBC 6.9 LAB L100.1200 4.2-5.4 M/mm3 Normal RBC 4.69 LAB L100.1300 12.0-15.0 g/dl Normal HGB 12.6 LAB L100.1400 37-47 % Normal HCT 39.4 LAB L100.1500 81-99 fL Normal MCV 84.0 LAB L100.1600 27.0-32.0 pg Low MCH 26.9 LAB L100.1700 32-36 g/gl Normal MCHC 32.0 LAB L100.1810 11.6-14.6 % Normal RDW CV 13.6 LAB L100.1820 35.1-43.9 fl Normal RDW SD 41.6 LAB L100.1900 150-450 K/mm3 Normal PLT 337 LAB L100.2000 6.2-12.0 fl Normal MPV 8.9 Performed By: #### L100.0500 #### [facility] Laboratory [address] [place], [address] PROTHROMBIN TIME W/INR Collected: 04/30/2018 Status: F Source: [place] 11:55 AM [facility] TYPE CODE TESTS RESULT OUT OF RANGE REFERENCE UNITS LAB L300.4150 11.7-14.9 SECONDS Normal PROTIME 13.0 LAB L300.4200 Normal INR 1.0 Performed By: #### L300.3900, L300.4310 #### [facility] [address] [place], [address] PARTIAL THROMBOPLAST Collected: 04/30/2018 Status: F Source: [place] TIME 11:55 AM [facility] TYPE CODE TESTS RESULT OUT OF RANGE REFERENCE UNITS LAB L300.4310 24.1-36.2 Seconds Normal PTT 32.5 Performed By: #### L300.3900, L300.4310 #### [facility] [address] [place], [address] BASIC METABOLIC Collected: 04/30/2018 Status: F Source: [place] PROFILE (BMP) 11:55 AM [facility] TYPE CODE TESTS RESULT OUT OF RANGE REFERENCE UNITS LAB L501.0100 74-106 mg/dL High GLU 119 Result Comment: Fasting Glucose result from 100 to 125 mg/dL suggests IMPAIRED HOMEOSTASIS per A.D.A. criteria. Please note revised GLUCOSE reference range effective 2017. LAB L501.1000 7-18 mg/dL Normal BUN 15 LAB L501.1100 0.55-1.02 mg/dL Normal CREAT,SERUM 0.97 Result Comment: The validity of the calculated GFR AND GFRAA in patients over 70 years has not been determined. Clinical correlation is essential. LAB L501.1110 >60 mL/min Normal EST GFR 62 Result Comment: Non- GFR Calc LAB L501.1115 >60 mL/min Normal EST GFR - AA 75 Result Comment: GFR Calc LAB L501.1300 10-20 RATIO Normal BUN/CRE 15.5 LAB L501.2200 8.5-10.1 mg/dL CA Normal 8.9 LAB L501.5300 136-145 mmol/L NA Normal 140 LAB L501.5600 3.5-5.1 mmol/L K Normal 3.6 LAB L501.5900 98-107 mmol/L CL Normal 104 LAB L501.6100 21.0-32.0 mmol/L Normal CO2 23.0 LAB L501.6200 5-15 Normal GAP 13 Performed By: #### L500.2500 #### [facility] [address] [facility] [place], [address] TYPE AND SCREEN Collected: 04/30/2018 Status: F Source: [place] 11:55 AM [facility] Order Comment: Surgery Date: 05/02/18 Hx of Preganancy in last 3 Months No Ever experience any problems with transfusion(s)? N Hx of Transfusion in last 3 Months N Reason for Type AND Screen/Red Cells: SURGERY SURGICAL PROCEDURE: 25034 TYPE CODE TESTS RESULT OUT OF RANGE REFERENCE UNITS LAB B10.0800 AB Normal BLOOD TYPE GEL POSITIVE LAB B100.4000 Normal Antibody NEGATIVE Screen Performed By: #### B101.7475 #### [facility] [address] [place], [address] BREAST LIMITED Observed: 02/21/2018 Status: F Source: [place] UNILATERAL 3:13 PM [facility] Imaging Services [address] [facility] [place] [address] Breast Limited Unilateral MR#: [id number] Acct: [id number] Name: LAUREN LOVELL Rep #: [id number] : 1955 F 62 From: Nathaniel Lundy MD PCP: Amadou Lora DO Status: REG CLI Study: Breast Limited Unilateral Date of Exam: 02/21/18 Exam# [id number] Ordering Dr: Aristides Pike MD STUDY: ULTRASOUND BREAST - LEFT REASON FOR EXAM: Female, 62 years old. Abnormal screening mammogram. TECHNIQUE: Axial and longitudinal images of the LEFT breast were performed with a high resolution ultrasound transducer. COMPARISON: Comparison is made with prior mammogram dated February 16, 2018. FINDINGS: LEFT Breast: The upper outer aspect of the left breast was examined by ultrasound. There is homogeneous fibroglandular tissue. No solid or cystic mass lesion is seen. US/Breast Limited Unilateral IMPRESSION: No sonographic abnormality is seen. ASSESSMENT CATEGORY: BIRADS Category 1: Negative. A letter regarding these results will be sent to the patient by the facility within 30 days. Electronically Signed: Nathaniel Lundy MD at 8:02 EDT Tel [phone], Service support , CC: Aristides Pike MD; Amadou Lora DO Shearing Machine Feeder: Signed SCREENING MAMM (CAD), Observed: 02/16/2018 Status: F Source: [facility] 7:09 AM [facility] Imaging Services [address] [place] [address] SCREENING MAMM (CAD), BILAT MR#: [id number] Acct: [id number] Name: LAUREN LOVELL Rep #: [id number] : 1955 F 62 From: Nathaniel Lundy MD PCP: Amadou Lora DO Status: REG CLI Study: SCREENING MAMM (CAD), BILAT Date of Exam: 02/16/18 Exam# [id number] Ordering Dr: Aristides Pike MD MAMMOGRAPHY - BILATERAL SCREENING REASON FOR EXAM: Female, 62 years old. Routine annual screening examination. PERTINENT HISTORY: Non-contributory. TECHNIQUE: Digital bilateral breast girish (3D mammographic acquisition) in the CC and MLO projections. 2-D mediolateral oblique (MLO) and craniocaudad (CC) views of both breasts were obtained. CAD: Full Field Digital Mammography with Computer Added Detection was performed. COMPARISON: Comparison is made with prior study dated August 11, 2015 and January 21, 2014. FINDINGS: Breast Composition: There are scattered areas of fibroglandular density. There are no dominant masses or suspicious calcifications. Asymmetry of breast tissue where more breast tissue is seen in the upper outer quadrant of the left breast as compared to the right breast. This is slightly more prominent than on prior examination. Correlation with ultrasound is recommended. No other significant abnormalities are identified. BI/SCREENING MAMM (CAD), BILAT IMPRESSION: Asymmetry of breast tissue with more breast tissue is seen in the upper outer quadrant of the left breast as compared to the right side. Correlation with ultrasound is recommended. ASSESSMENT CATEGORY: BIRADS Category 0: Incomplete. Need additional imaging evaluation. A letter regarding these results will be sent to the patient by the facility within 30 days. Approximately 10% of breast cancers are not detected by mammography. A normal mammogram should not delay biopsy of a clinically suspicious abnormality. [id number] Electronically Signed: Nathaniel Lundy MD at 12:57 EDT Tel [phone], Service support , CC: Aristides Pike MD; Amadou Lora DO Shearing Machine Feeder: Signed 12 LEAD ELECTROCARDIOGRAM Observed: 01/08/2018 Status: F Source: [place] 1:59 PM [facility] [place] [address] 12 Lead EKG 01/05/18 0937 MR#: [id number] Acct: [id number] Name: LAUREN LOVELL Rep #: [id number] : 1955 62 From: Francisco Becker MD Attending Dr: Status: DEP ER Ordering Dr: Linda Harris MD Date: 01/05/18 Location: ED Sex: F C Admitted: Test Reason : Blood Pressure : / mmHG Vent. Rate : 092 BPM Atrial Rate : 092 BPM P-R Int : 168 ms QRS Dur : 078 ms QT Int : 360 ms P-R-T Axes : 047 009 027 degrees QTc Int : 445 ms Normal sinus rhythm Normal ECG Confirmed by EUGENIO ROA, FRANCISCO ([id number]), online content editor JULIANNA COWART ([id number]) on 01/08/2018 1:59:09 PM Referred By: Confirmed By:FRANCISCO BECKER MD 01/08/18 1359 Date Francisco Becker MD CC: MD Sandy Harris; Amadou Lora DO Signed EMERGENCY DEPARTMENT Observed: 01/05/2018 Status: F Source: [place] SUMMARY 3:34 PM [facility] [place] [facility] Medical Records Department [address] [place] [address] Emergency Department Summary 01/05/18 0949 MR#: [id number] Acct: [id number] Name: LAUREN LOVELL Rep #: [id number] : 1955 62 From: Linda Harris MD PCP: Amadou Lora DO Status: DEP ER - ER Visit Summary Date of Service: 01/05/18 Chief Complaint: [] Right upper quadrant pain began 7 AM today History of Present Illness: The patient is a 62 F [] past history is for distant stroke with no deficits, and very good health went to sleep feeling fine, woke this morning with pain to the right upper quadrant, she has had no vomiting no fever no cough normal bowel bladder habits she has no history of cardiovascular pulmonary GI ailments of any kind she does have hypertension she takes amitriptyline to prevent headaches, she believes she is on an antacid proton pump type medicine, she has been eating well without difficulty, no fever no cough no exposure tainted food or sick individuals Physical Examination: [] Her vital signs are within normal range she is resting comforting the bed point directly to her right upper quadrant for pain head neck chest unremarkable the abdomen there is vague pain to the right upper quadrant there is no rebound guarding organomegaly upper lower extremities unremarkable back unremarkable neurologically normal Test Results: [] Emergency Department Course and Treatment: screening labs ultrasound pain management The patient's lab studies and UA are generally unremarkable see those reports, her right upper quadrant ultrasound showed nothing acute, she was sent for abdominal CT, the abdominal CT show what appear to be fine gallstones sludge, nothing else acute except some notation of an abnormality that was suspicious in the left kidney, she was then sent for renal ultrasound and that renal scan showed what appeared to be normal cyst left kidney, please see all those reports Evaluation she is resting comfortably she has no physical findings feels improved have explained all the test results to her the need for follow- up with her physicians the concept of the gallstones potentially causing biliary colic versus other causes of her pain should be followed by her family physician also given referral Dr. Rodriguez refrigeration engineering teacher for surgery and she will refer return for change in symptoms she agrees to this plan Treatment Plan: [] Disposition: [] Home stable Impression: [] Right upper quadrant pain suspect related to gallstones, gallstone seen on CAT scan, cyst left kidney This note was generated with [employer]ar[employer] dictation software. It may contain incorrect words, spelling, and punctuation that were not noted in review of the chart prior to signing ED Disposition - Plan for ED Patient: Chief Complaint: Chest Pain Referrals: Hipolito Ayers PA [PHYSICIAN CASE MANAGEMENT RN] - What to do if you have Problems For any increased pain, shortness of breath, bleeding, nausea or vomiting, chest pain, or any unexpected problems, contact your Primary Care Provider. Call [facility] ([phone]) or report to the closest Emergency Room. Call 911 if necessary. 01/05/18 2074 <Electronically signed by Linda Harris MD> Date Linda Harris MD Cosigner Signature (If Indicated): Date CC: Amadou Lora DO DISCHARGE INSTRUCTION Observed: 01/05/2018 Status: F Source: [place] 1:18 PM [facility] [place] Medical Records Department [address] [place] [address] Discharge Instruction 01/05/18 1317 MR#: [id number] Acct: [id number] Name: LAUREN LOVELL Rep #: [id number] : 1955 62 From: Linda Harris MD PCP: Amadou Lora DO Status: REG ER ED Disposition - Plan for ED Patient: Chief Complaint: Chest Pain Instructions: ED Abdominal Pain Gallstone Poss, ED Abdominal Pain Unkn Cause Referrals: Hipolito Ayers PA [PHYSICIAN CASE MANAGEMENT RN] - Gigi Rodriguez MD [STAFF PHYSICIAN] - Aravind hPelps MD [STAFF PHYSICIAN] - What to do if you have Problems For any increased pain, shortness of breath, bleeding, nausea or vomiting, chest pain, or any unexpected problems, contact your Primary Care Provider. Call [facility] ([phone]) or report to the closest Emergency Room. Call 911 if necessary. 01/05/18 1318 <Electronically signed by Linda Harris MD> Date Linda Harris MD Cosigner Signature (If Indicated): Date CC: Amadou Lora DO KIDNEY AND BLADDER Observed: 01/05/2018 Status: F Source: [place] 11:56 AM [facility] [place] Imaging Services [address] [place] [address] Kidney and Bladder MR#: [id number] Acct: [id number] Name: LAUREN LOVELL Rep #: [id number] : 1955 F 62 From: Dante Bhatti MD PCP: Amadou Lora DO Status: REG ER Study: Kidney and Bladder Date of Exam: 01/05/18 Exam# [id number] Ordering Dr: Linda Harris MD STUDY: RENAL ULTRASOUND - COMPLETE REASON FOR EXAM: Female, [address] Evaluate left renal lesion TECHNIQUE: Ultrasound evaluation of the kidneys was performed with real-time and static chahal-scale imaging. COMPARISON: Noncontrast enhanced CT. FINDINGS: RIGHT KIDNEY: Normal location of the right kidney, which is normal in size. The right kidney measures 10.0 cm. There is a normal cortex of the right kidney. The renal cortex measures 1.0 cm. There is no right renal mass or cyst. There are no right renal calculi. There is echogenic focus suggesting prominent vessel. There is no right hydronephrosis. DISTAL RIGHT URETER: There is non-visualization of the distal right ureter. There is no demonstrated right ureterovesical junction calculus. There is no demonstrated right ureteral jet. LEFT KIDNEY: Normal location of the left kidney, which is normal in size. The left kidney measures 10.1 cm. There is a normal cortex of the left kidney. The renal cortex measures 1.6 cm. There is 2.3 cm simple cyst at the upper aspect. There are no left renal calculi. There is no left hydronephrosis. DISTAL LEFT URETER: There is non-visualization of the distal left ureter. There is no demonstrated left ureterovesical junction calculus. There is a visualized left ureteral jet. BLADDER: The distended urinary bladder has a volume of 31 ml. There is a normal wall thickness of the distended urinary bladder. There is no demonstrated mass within the urinary bladder. There are no demonstrated bladder calculi. US/Kidney and Bladder IMPRESSION: Simple cyst of the left kidney. No hydronephrosis. Electronically Signed: Dante Bhatti MD at 13:06 EDT , Service support , CC: MD Sandy Harris; Amadou Lora DO Shearing Machine Feeder: Signed URINALYSIS, COMPLETE Collected: 01/05/2018 Status: F Source: [place] 11:50 AM [facility] Order Comment: How was Urine Obtained? CLEAN CATCH TYPE CODE TESTS RESULT OUT OF RANGE REFERENCE UNITS LAB L400.3000 Yellow COLOR Normal Yellow LAB L400.3050 Clear Normal CLARITY Clear LAB L400.3200 Normal mg/dl Normal GLUCOSE, UR Normal LAB L400.3300 Negative mg/dL Normal BILIRUBIN URINE Negative LAB L400.3400 Negative mg/dl Normal KETONE UR Negative LAB L400.3465 1.002-1.030 Normal SP.GR. DIPSTX 1.010 LAB L400.3550 5.0 - 8.0 pH UR Normal 6.5 LAB L400.3600 Negative mg/dl PROT Normal DIPSTX Negative LAB L400.3700 Normal mg/dl Normal UROBILI Normal LAB L400.3750 Negative Normal NITRITE UR Negative LAB L400.3780 Negative /ul High 10 OCCULT BLOOD-UR LAB L400.3800 Negative /ul High LEUK 25 ESTERASE LAB L400.4050 0-5 /hpf WBC Normal 0-5 SEEN LAB L400.4100 0-5 /hpf 0 Normal RBC-UA SEEN LAB L400.4150 5-10 /hpf SQUAM Normal EPI 0-5 SEEN LAB L400.4300 None Seen /hpf 0 Normal BACTERIA SEEN LAB L400.4350 <or=2+ /hpf 0 Normal MUCUS, URINE SEEN Performed By: #### L400.0001 #### [facility] [address] [place], [address] ABDOMEN/PELVIS WITHOUT Observed: 01/05/2018 Status: F Source: [place] CONT 10:53 AM [facility] Imaging Services [address] [place] [address] Abdomen/Pelvis without Cont MR#: [id number] Acct: [id number] Name: LAUREN LOVELL Rep #: [id number] : 1955 F 62 From: Nathaniel Lundy MD PCP: Amadou Lora DO Status: REG ER Study: Abdomen/Pelvis without Cont Date of Exam: 01/05/18 Exam# [id number] Ordering Dr: Linda Harris MD STUDY: CT ABDOMEN AND PELVIS WITHOUT CONTRAST REASON FOR EXAM: Female, 62 years old. Right upper quadrant pain. RADIATION DOSAGE (If Supplied By Facility): CTDIvol = ( 8.64 ) mGy, DLP = ( 453.50 ) mGycm TECHNIQUE: Transaxial images were obtained from the dome of the diaphragm to the symphysis pubis without oral contrast, and without intravenous contrast. Sagittal and coronal images were reconstructed. Individualized dose optimization techniques were used for this CT. COMPARISON: Comparison is made with prior study dated October 16, 2008. FINDINGS: Mild linear scarring at the lung bases. Coronary artery calcification. Normal liver. I suspect small layering gallstones along the dependent portion of the gallbladder. There are multiple benign calcified granulomata of the spleen. Normal pancreas. Normal bilateral adrenal glands. Normal right kidney. Suspect a 2.2 cm complex cystic mass arising from the superior lateral aspect of the left kidney. Correlation with enhanced T scan of the abdomen or ultrasound is recommended for further evaluation. Normal visualized stomach. Normal small intestine. There are multiple colonic diverticula consistent with diverticulosis. The appendix is visualized and appears normal. There is diffuse atherosclerotic calcification of the abdominal aorta, without a demonstrated aneurysm. Normal inferior vena cava. Normal retroperitoneum. Normal urinary bladder. There is absence of the uterus consistent with a prior hysterectomy. Normal abdominal wall. There are diffuse degenerative changes of the visualized lumbar spine. CT/Abdomen/Pelvis without Cont IMPRESSION: Small layering gallstones along the dependent portion of the gallbladder. Findings suggest a complex cystic structure in the left kidney as described. Correlation with ultrasound is recommended. Electronically Signed: Nathaniel Lundy MD at 11:32 EDT Tel [phone], Service support , CC: MD Sandy Harris; Amadou Lora DO Shearing Machine Feeder: Signed BASIC METABOLIC Collected: 01/05/2018 Status: F Source: [place] PROFILE (BMP) 9:50 AM [facility] TYPE CODE TESTS RESULT OUT OF RANGE REFERENCE UNITS LAB L501.0100 74-106 mg/dL High GLU 108 Result Comment: Fasting Glucose result from 100 to 125 mg/dL suggests IMPAIRED HOMEOSTASIS per A.D.A. criteria. Please note revised GLUCOSE reference range effective 2017. LAB L501.1000 7-18 mg/dL Normal BUN 13 LAB L501.1100 0.55-1.02 mg/dL Normal CREAT,SERUM 0.84 Result Comment: The validity of the calculated GFR AND GFRAA in patients over 70 years has not been determined. Clinical correlation is essential. LAB L501.1110 >60 mL/min Normal EST GFR 73 Result Comment: Non- GFR Calc LAB L501.1115 >60 mL/min Normal EST GFR - AA 88 Result Comment: GFR Calc LAB L501.1255 ml/min Normal Estimated CRCL 63.34 LAB L501.1300 10-20 RATIO Normal BUN/CRE 15.5 LAB L501.2200 8.5-10 mg/dL Normal .1 CA 8.9 LAB L501.5300 136-14 mmol/L Normal 5 NA 139 LAB L501.5600 3.5-5. mmol/L Normal 1 K 3.9 LAB L501.5900 98-107 mmol/L Normal CL 105 LAB L501.6100 21.0-3 mmol/L Normal 2.0 CO2 27.0 LAB L501.6200 5-15 Normal GAP 7 Performed By: #### L500.2500, L500.3400, L501.2450, L501.4010 #### [facility] [address] [place], [address] LIVER PROFILE Collected: 01/05/2018 Status: F Source: [place] 9:50 AM [facility] TYPE CODE TESTS RESULT OUT OF RANGE REFERENCE UNITS LAB L501.1500 6.4-8.2 g/dL Normal T PROT 7.8 LAB L501.1800 3.2-5.0 g/dL Normal ALB 4.2 LAB L501.1950 2.2-4.2 g/dL Normal GLOB 3.6 LAB L501.4100 15-37 U/L Normal AST 21 LAB L501.4305 45-117 U/L Normal ALK P 84 LAB L501.4405 13-56 U/L Normal ALT 31 LAB L501.4600 0.20-1.00 mg/dL Normal T BILI 0.40 LAB L501.4700 0.00-0.30 mg/dL Normal D BILI 0.12 Performed By: #### L500.2500, L500.3400, L501.2450, L501.4010 #### [facility] [address] [facility] [place], [place], [address] LIPASE Collected: 01/05/2018 Status: F Source: [place] 9:50 AM [facility] TYPE CODE TESTS RESULT OUT OF RANGE REFERENCE UNITS LAB L501.2450 73-393 U/L Normal LIPASE 84 Performed By: #### L500.2500, L500.3400, L501.2450, L501.4010 #### [facility] [address] [place], [address] TROPONIN-I Collected: 01/05/2018 Status: F Source: [place] 9:50 AM [facility] TYPE CODE TESTS RESULT OUT OF RANGE REFERENCE UNITS LAB L501.4010 <0.045 ng/mL Normal < 0.015 TROPONIN-I Result Comment: TROPONIN-I EXPECTED VALUES <0.045 Negative 0.045 - 0.590 Consistent with Cardiac Damage > OR = 0.600 Critical Value Not every elevated troponin is indicative of PR. These values should be used with clinical judgement in examining the patient's clinical picture for diagnosis. To establish a diagnosis of PR versus myocardial injury, there must be a demonstrated rise and/or fall in the troponin values, in addition to ischemic symptoms, EKG changes, new regional wall motion abnormality, and/or angiographical evidence. PLEASE NOTE: REFERENCE RANGES EDITED 17 Performed By: #### L500.2500, L500.3400, L501.2450, L501.4010 #### [facility] [address] [place], [address] CBC W/DIFF, AUTOMATED Collected: 01/05/2018 Status: F Source: [place] 9:50 AM [facility] TYPE CODE TESTS RESULT OUT OF RANGE REFERENCE UNITS LAB L100.1000 4.4-11.0 K/mm3 Normal WBC 9.1 LAB L100.1200 4.2-5.4 M/mm3 Normal RBC 4.74 LAB L100.1300 12.0-15.0 g/dl Normal HGB 12.8 LAB L100.1400 37-47 % Normal HCT 40.0 LAB L100.1500 81-99 fL Normal MCV 84.4 LAB L100.1600 27.0-32.0 pg Normal MCH 27.0 LAB L100.1700 32-36 g/gl Normal MCHC 32.0 LAB L100.1810 11.6-14.6 % Normal RDW CV 13.6 LAB L100.1820 35.1-43.9 fl Normal RDW SD 41.9 LAB L100.1900 150-450 K/mm3 Normal PLT 340 LAB L100.2000 6.2-12.0 fl Normal MPV 9.0 LAB L100.2100 47-70 % High NEUT% 71.4 LAB L100.2200 19-41 % Normal LY% 19.4 LAB L100.2300 0-10 % Normal MONO% 6.9 LAB L100.2400 0-5 % Normal EO% 1.9 LAB L100.2500 0-1 % Normal BASO% 0.3 LAB L100.2550 0.0-0.9 % Normal IM GRAN % 0.100 Result Comment: IG% - Immature Granulocytes (promyelocytes, myelocytes and metamyelocytes) > 1% indicates that a LEFT SHIFT is Present. LAB L100.2620 2.0-7.7 X10 3/uL Normal Absolute Neut 6.5 LAB L100.2720 0.83-4.51 X10 3/ul Normal Absolute Lymph 1.76 Performed By: #### L100.0100 #### [facility] [address] [place], [address] GALLBLADDER Observed: 01/05/2018 Status: F Source: [place] 9:48 AM [facility] Imaging [place] [address] Gallbladder MR#: [id number] Acct: [id number] Name: LAUREN LOVELL Rep #: [id number] : 1955 F 62 From: Nathaniel Lundy MD PCP: ARNAUD Hemphill Status: PRE ER Study: Gallbladder Date of Exam: 01/05/18 Exam# [id number] Ordering Dr: Linda Harris MD STUDY: ABDOMINAL ULTRASOUND - RIGHT UPPER QUADRANT REASON FOR VISIT: Female, 62 years old. One-day history of right upper quadrant pain. TECHNIQUE: Ultrasound evaluation of the right upper quadrant was performed with real-time and static roche-scale imaging. TECHNICAL QUALITY: Adequate. COMPARISON: Comparison is made with prior study dated March 22, 2012. FINDINGS: Liver: The liver measures 15.8 cm. There is normal echogenicity of the liver. The bile ducts are within normal limits. There is hepatic color flow. The direction of portal flow is hepatopetal. There is no demonstrated mass lesion. Gallbladder: Normal distended gallbladder. The gallbladder wall measures 2.9 mm. There is a negative sonographic Gutierrez's sign. There is no pericholecystic fluid. There are no gallstones. Common Bile Duct (C.B.D.): The common bile duct measures 3.0 mm. Pancreas: Normal size of the head, body and tail of the pancreas. There is normal echogenicity of the pancreas. There is no demonstrated pancreatic mass or cyst. Right Kidney: Normal size of the right kidney. The right kidney measures 9.9 cm x 5.1 cm x 5.1 cm. Normal renal cortex. The right cortex measures 1.2 cm. There is no demonstrated renal mass or cyst. There is no right hydronephrosis. US/Gallbladder IMPRESSION: Normal right upper quadrant ultrasound examination. Electronically Signed: Nathaniel Lundy MD at 10:47 EDT Tel [phone], Service support , CC: MD Sandy Harris; ARNAUD Ayers Shearing Machine Feeder: Signed LIPID Collected: 07/10/2017 Status: F Source: [employer] 8:56 AM [facility] REPOSITORY TYPE CODE TESTS RESULT OUT OF REFERENCE UNITS RANGE LAB CHOL(LOINC 131-200 mg/dL ) Cholesterol 198 Result Comment: Cholesterol Reference Interval: Less than 200 Desirable 200-239 Borderline high risk 240 and above High risk LAB TRIG(LOINC) 40-150 mg/dL Triglycerides 117 Result Comment: Triglyceride Reference Interval: Less than 150 Normal 150-199 Borderline high risk 200-499 High risk 500 or higher Very high risk LAB HD(LOINC) 35-90 mg/dL HDL Cholesterol 64 Result Comment: HDL Reference Interval: Less than 40 Low - high risk 60 or above Optimal/lowers risk LAB LDL(LOINC) 0-130 mg/dL LDL Cholesterol 111 Result Comment: LDL is a calculated result and requires a 12-hr fast. LDL Reference Interval: Less than 100 Optimal 100-129 Near or above optimal 130-159 Borderline high risk 160-189 High risk 190 and above Very high risk Performed By: #### LIPID, CMP, GFR #### [address] [address] CMP Collected: 07/10/2017 Status: F Source: [employer] 8:56 AM [facility] REPOSITORY TYPE CODE TESTS RESULT OUT OF REFERENCE UNITS RANGE LAB 1547-9 80-115 mg/dL GLUCOSE 87 LAB NA(LOINC) 136-146 mEq/L Sodium Level 138 LAB K(LOINC) 3.5-5.1 mEq/L Potassium Level 4.8 LAB CL(LOINC) 98-107 mEq/L Chloride 100 LAB CO2(LOINC) 23-31 mEq/L CO2 29 LAB EBAL(LOINC mEq/L ) Electrolyte Balance 9.0 LAB BUN(LOINC) 7.0-18.0 mg/dL BUN 10.6 LAB CRE(LOINC) 0.6-1.2 mg/dL Creatinine Lvl (s) 0.7 LAB BC(LOINC) 7-27 ratio BUN/Creatinine 15 Ratio LAB CA(LOINC) 8.4-10.2 mg/dL Calcium Lvl 10.0 LAB PROT(LOINC 6.0-8.3 G/dL ) Total Protein 7.5 LAB ALB(LOINC) 3.4-4.8 G/dL Albumin High Level 5.0 LAB GLB(LOINC) G/dL Globulin 2.5 LAB AG(LOINC) 1.1-2.5 ratio A/G Ratio 2.0 LAB BILT(LOINC 0.2-1.0 mg/dL ) Bili Total 0.4 LAB AP(LOINC) 40-135 IU/L Alk Phos 82 LAB AST(LOINC) 10-40 IU/L AST/SGOT 18 LAB ALT(LOINC) 10-35 IU/L ALT/SGPT 21 Performed By: #### LIPID, CMP, GFR #### [place] [address] .GFR Collected: 07/10/2017 Status: F Source: [facility] 8:56 AM [facility] TYPE CODE TESTS RESULT OUT OF REFERENCE UNITS RANGE LAB GFRAA(LOINC ml/min/1.73 ) sqm GFR 100 Micronesian Result Comment: GFR Population mean for , Non- Americans Ages 20-29 = 116 mL/min/1.73 sq.m. Ages 30-39 = 107 mL/min/1.73 sq.m. Ages 40-49 = 99 mL/min/1.73 sq.m. Ages 50-59 = 93 mL/min/1.73 sq.m. Ages 60-69 = 85 mL/min/1.73 sq.m. Ages 70+ = 75 mL/min/1.73 sq.m. Chronic Kidney Disease: Less than 60 mL/min/1.73 square meters End Stage Renal Disease: Less than 15 mL/min/1.73 square meters LAB GFRNO(LOINC) ml/min/1.73sqm GFR Non- >60 Result Comment: GFR Population mean for , Non- Americans Ages 20-29 = 116 mL/min/1.73 sq.m. Ages 30-39 = 107 mL/min/1.73 sq.m. Ages 40-49 = 99 mL/min/1.73 sq.m. Ages 50-59 = 93 mL/min/1.73 sq.m. Ages 60-69 = 85 mL/min/1.73 sq.m. Ages 70+ = 75 mL/min/1.73 sq.m. Chronic Kidney Disease: Less than 60 mL/min/1.73 square meters End Stage Renal Disease: Less than 15 mL/min/1.73 square meters Performed By: #### LIPID, CMP, GFR #### [place] [address] [place], [place] [address] MALBR Collected: 07/10/2017 Status: F Source: [facility] 8:56 AM [facility] TYPE CODE TESTS RESULT OUT OF REFERENCE UNITS RANGE LAB CRU(LOINC) mg/dL U 34.9 Creatinine LAB MRUR(LOINC mcg/dL ) U <500 Microalb LAB RMAL(LOINC 0.0-24.9 mcg/mg ) U Ratio Alb/Cre Unable to Calculate Result Comment: Unable to calculate this test result accurately. Results used to calculate this test are outside the reportable range. Performed By: #### MALBR #### [place] [address] ALLERGIES ALLERGIES DATE TYPE / CODE NAME / CODE REACTION SEVERITY SOURCE 05/02/2018 Drug No Known Unknown [facility] Allergy/4160 Allergies/F00 [facility] [address]35(SNOMED [id number](RXNOR Repository CT) M) ENCOUNTERS ENCOUNTERS ADMIT/DISCHARGE ACCOUNT NUMBER ADMITTING ENCOUNTER LOCATION SOURCE CLASS 05/02/2018/05/03/20 [id number] [facility] [address] ding:[id number] Repository : XS714Yvg: 1 04/30/2018 [id number] Ambulatory [facility]: [facility] Repository 02/21/2018 [id number] Ambulatory [facility] ding:OPUS Repository 02/16/2018 [id number] Ambulatory [facility] ding:OPBI Repository 01/05/2018/01/06/20 [id number] Emergency [address] ding:ED Repository 07/10/2017/07/10/[id number] ding:[facility] Repository PAYERS PAYERS ENCOUNTER GUARANTOR PAYER SUBSCRIBER SOURCE 05/02/2018 LAUREN Steele Primary LAUREN [place]cc[place] [id number] ICKES Insurance:MEDICAL TAYLORDOB: [facility] [id number] Hospital [address]Czp: (330) Number: Repository [phone] () [id number] Date:1957-26-75IP [address] [address]AI: 05/02/2018 Secondary NOT GIVENUNK [place] Insurance:SELF PAY [facility] Number: Effective Repository Date:2018-03-16 04/30/2018 LAUREN Steele Primary LAUREN [place]ccrack[place] [id number] ICKES Insurance:MEDICAL TAYLORDOB: [facility] [id number] Hospital [address]Owu: (330) Number: Repository [phone] () [id number] Date:[id number] [address]ZF: 04/30/2018 Secondary NOT GIVENUNK [place] Insurance:SELF PAY [facility] Number: Effective Repository Date:2018-04-30 02/21/2018 Lauren Steele Primary Lauren Mccrack[place] [id number] [place] Insurance:MEDICAL [place]OB[place] [facility] [place] [id number] Hospital [address]Jfe: (330) Number: Repository [phone] () [id number] Date:4794-10-04VZ [address] [address]NZ: 02/21/2018 Secondary NOT GIVENUNK [place] Insurance:SELF PAY [facility] Number: Effective Repository Date:2018-02-19 02/16/2018 Lauren Steele Primary Lauren [place] [id number] [place] Insurance:MEDICAL TaylorDOB[place] [facility] [place] [id number] Hospital [address]Dxu: (330) Number: Repository [phone] () [id number] Date:3377-50-56TC [address] [place] [id number]: 02/16/2018 Secondary NOT GIVENUNK [place] Insurance:SELF PAY [facility] Number: Effective Repository Date:2018-01-24 01/05/2018 [facility] Insurance:MEDICAL TaylorDOB[place] [facility] [place] [facility] [place] [id number] [facility] 1987[address]Gmb: (330) Number: Repository [phone] () [id number] Date:[id number] [id number]: 01/05/2018 Secondary NOT GIVENUNK Nawaf Insurance:SELF PAY [facility] Number: Effective Repository Date:2018-01-05 07/10/2017 [facility] Primary [facility] TAYLORDOB: Insurance:MEDICAL TAYLORDOB: [facility] [address] [id number] Repository [facility], Number: 6 [facility] [id number]: [id number] [facility] [place] Date:2017-07-10 [id number]: (330) ()Tel: [phone] [phone] (WP) Name:BPO BOX ()Tel: [phone], [place] [phone] (WP) [phone]:
== END 2018-05-03 13:11 | disposition home or self-care (01) ==
LOC: SDC 17:30
PROVIDERS: Admitting Provider Obstetrics & Gynecology; Family Provider Preventive Medicine Occupational Medicine; PCP Preventive Medicine Occupational Medicine; Referring Provider Obstetrics & Gynecology; Visit Provider Obstetrics & Gynecology
PROC: (CPT 57260; principal; 2018-05-02 09:25)
DX: N81.11 Cystocele, midline (principal); N81.6 Rectocele; K21.9 Gastro-esophageal reflux disease without esophagitis; Z87.891 Personal history of nicotine dependence; E78.5 Hyperlipidemia, unspecified; I10 Essential (primary) hypertension; Z79.899 Other long term (current) drug therapy; Z79.82 Long term (current) use of aspirin
CPT/HCPCS: 00942; 57260; 36415; 71046; 80048; 82565; 85027; 85610; 85730; 86850; 86900; 88302; 88304; 93005; 96360; 96361; 99218; J7120; A4216; G0378; G0379; J2405

== ENCOUNTER 2018-10-29 05:18 | Emergency (ER) | payer OTHER, SELFPAY ==
[2018-05-02 19:33] VITALS: BMI 27.0
[2018-10-29 05:19] VITALS: BP 136/86; PULSE 85; RESP 18; TEMP 36.7; O2SAT 94; BMI 27.8
--- NOTE | 2018-10-29 05:24 | ED.RN ---
CALLED RACHEAL BERGERON TO TEST THIS PT FOR VenuWDebra
--- NOTE | 2018-10-29 05:33 | ED.VISSUMM ---
- ER Visit Summary Date of Service: 10/29/18 Chief Complaint: Fell onto ladder complaining of right anterior chest wall pain and right breast bruising. History of Present Illness: The patient is a 62 F history of prior stroke, hypertension and cholesterol. Patient was at work tonight and was not letter fell and landed on the ladder injuring her right breast and chest wall. No LOC. No head injury. She is on aspirin but no other blood thinners. She denies any neck pain. No abdominal pain. She is moving all 4 extremities. Small bruise left mid lower leg. Physical Examination: Older female no acute distress. Vital signs are stable and afebrile. H EENT exam pupils round react light motions are intact no signs of trauma to her face or skull. C-spine nontender. Trachea midline. Normal range of motion. Lungs clear to auscultation bilaterally. Heart regular rhythm no murmur. Chest wall she has tenderness over her mid to lower sternum. There is no ecchymosis or bruising there. No crepitance or subcu air. Is a small bruise on her right breast just inferior to the nipple. No laceration. Left breast has no injury. Abdomen soft nontender normal bowel sounds no peritoneal signs. No bruising to the abdomen. Pelvic girdle intact. Patient moving all 4 extremities. Neurovascular intact. Small bruise on left anterior zafar region but there is no bony deformity or tenderness. She has normal dorsi and plantarflexion of the left foot. Normal range of motion of the left ankle, knee and hip. The upper extremities and right lower extremity unremarkable. Back is nontender. Neurologically she is awake and alert. No focal motor or sensory deficits. GCS of 15. Test Results: Two-view chest x-ray was obtained shows no acute rib fractures or sternal fracture. No pneumothorax. Normal mediastinum and cardiac silhouette read by myself. Patient I discussed the limitations of plain films and that she could have a nondisplaced rib fracture sternal fracture that we cannot see but at this time there is nothing obvious on this x-ray. She denied discussed a CAT scan and she deferred at this time. Emergency Department Course and Treatment: Patient with a fall landed with her current him and chest versus a ladder. No LOC. No head injury. She is on no blood thinners besides the aspirin. Motrin for pain. Repeat exam she is doing well at 05:56 AM. There is been no new bruising. Her leg is doing well also. Again no crepitance to her chest wall. Treatment Plan: Ice to her chest wall. Motrin Tylenol for pain. She will be given a dose of Motrin here. She is currently being evaluated by [facility] and will follow up with [facility]. Return if feeling worse. Disposition: Discharge Impression: Acute fall on a ladder Acute chest wall contusion (sternum and anterior ribs) Left lower leg contusion This note was generated with Glassdoor dictation software. It may contain incorrect words, spelling, and punctuation that were not noted in review of the chart prior to signing ED Disposition - Plan for ED Patient: Referrals: Espinoza Lora DO [Primary Care Provider] -
--- NOTE | 2018-10-29 05:40 | RAD_ITS ---
HISTORY: anterior chest pain after fall EXAM:XR Chest 2 Views COMPARISON: 04/30/2018 FINDINGS: No significant change. Shallow inspiration. Left midlung small granuloma, unchanged. Normal heart size. No vascular congestion, pleural effusion, or acute pulmonary infiltration. No pneumothorax. Atherosclerotic thoracic aorta. The bony thorax appears intact. RAD/Chest PA and Lateral IMPRESSION: No acute cardiopulmonary disease. No significant interval change. at 0628 Reported and signed by: Hipolito Burris MD Electronically Signed: Hipolito Burris, at 6:27 EDT Tel , Service support ,
--- NOTE | 2018-10-29 06:00 | ED.DEP ---
ED Disposition - Plan for ED Patient: Disposition: Home or Assisted Living Instructions: ED Contusion Chest Wall, ED Contusion Lower Ext Referrals: [facility] [GROUP OF PHYSICIANS] - 3-5 Days Additional Instructions: Ice to chest wall and sternum. Also ice and elevate your left lower leg bruise. Motrin for pain and inflammation and Tylenol for pain. Follow-up with [facility]. Return if feeling a lot worse. On your plain x-ray there are no obvious broken bones or fractures to either your ribs or sternum. However small cracks in the bones can be missed by a plain x-ray. If you are feeling worse return we can always get a CAT scan.
[2018-10-29] MEDS: Ibuprofen 600 MG Tablet PO (06:36)
[2018-10-29 06:40] VITALS: BP 128/78; PULSE 70; RESP 16; O2SAT 97
== END 2018-10-29 06:41 | disposition home or self-care (01) ==
PROVIDERS: Emergency Provider Emergency Medicine; Family Provider Preventive Medicine Occupational Medicine; PCP Preventive Medicine Occupational Medicine
DX: S20.01XA Contusion of right breast, initial encounter (principal); S80.12XA Contusion of left lower leg, initial encounter; W11.XXXA Fall on and from ladder, initial encounter; Y93.9 Activity, unspecified; Y92.9 Unspecified place or not applicable; K21.9 Gastro-esophageal reflux disease without esophagitis; I10 Essential (primary) hypertension; E78.00 Pure hypercholesterolemia, unspecified; Z86.73 Personal history of transient ischemic attack (TIA), and cerebral infarction without residual deficits; Z79.82 Long term (current) use of aspirin; Z79.899 Other long term (current) drug therapy
CPT/HCPCS: 71046; 99283

== ENCOUNTER → 2019-06-28 07:32 | Outpatient (CLI) | payer MEDICARE, OTHER, SELFPAY ==
--- NOTE | 2019-06-28 07:34 | BI_ITS ---
MAMMOGRAPHY - BILATERAL SCREENING REASON FOR EXAM: Female, 63 years old. Routine annual screening examination. PERTINENT HISTORY: Non-contributory. TECHNIQUE: Digital bilateral breast yuridia (3D mammographic acquisition) in the CC and MLO projections. 2-D mediolateral oblique (MLO) and craniocaudad (CC) views of both breasts were obtained. CAD: Full Field Digital Mammography with Computer Added Detection was performed. COMPARISON: Comparison is made with prior examination dated February 16, 2018 and August 11, 2015. FINDINGS: Breast Composition: There are scattered areas of fibroglandular density. There are no dominant masses or suspicious calcifications. Stable asymmetry of breast tissue where normal breast tissue is seen in the left breast as compared to the right side. Prior sonogram demonstrating this to be fibroglandular tissue. No other significant abnormalities are identified. There has been no significant change since the prior study. BI/SCREEN MAMM (CAD) W/YURIDIA BILAT IMPRESSION: Stable bilateral screening mammogram. Yearly follow-up mammogram recommended. (A) ASSESSMENT CATEGORY: BIRADS Category 2: Benign. A letter regarding these results will be sent to the patient by the facility within 30 days. Approximately 10% of breast cancers are not detected by mammography. A normal mammogram should not delay biopsy of a clinically suspicious abnormality. [id number] Electronically Signed: Nathaniel Lundy, at 8:38 EST , Service support ,
== END ==
PROVIDERS: Family Provider Preventive Medicine Occupational Medicine; PCP Preventive Medicine Occupational Medicine; Referring Provider Obstetrics & Gynecology; Visit Provider Obstetrics & Gynecology
DX: Z12.31 Encounter for screening mammogram for malignant neoplasm of breast (principal)
CPT/HCPCS: 77063; 77067

== ENCOUNTER 2019-09-18 10:14 | Emergency (ER) | payer MEDICARE, OTHER, SELFPAY ==
[2019-09-18 10:15] VITALS: BP 159/98; PULSE 98; RESP 17; TEMP 36.9; O2SAT 93; BMI 27.7
--- NOTE | 2019-09-18 10:28 | ED.VIS.GEN ---
History of Present Illness Chief Complaint: Laceration Informant: Patient Onset: Today Narrative: Patient sustained a right thumb laceration on a piece of mirror. Bleeding was controlled. She does not remember when her last tetanus update was which is the impetus for the visit. Past Medical History - Allergies and Home Meds Allergies/Adverse Reactions: Allergies No Known Allergies Allergy (Verified 09/18/19 10:14) Primary Care Physician: Espinoza Lora DO [Primary Care Provider] - Smoking Status: Never smoker - Family History Sibling Family History: Reports: Heart Disease Paternal Family History: Reports: Heart Disease Review of Systems General: Denies: Chills, Fever, Sweats Eyes: Denies: Visual changes - bilaterally, Diplopia ENT: Denies: Rhinorrhea, Sore throat Cardiovascular: Denies: Chest pain, Palpitations Respiratory: Denies: Dyspnea, Cough, Dyspnea on exertion Gastrointestinal: Denies: Abdominal pain, Nausea, Vomiting, Diarrhea, Melena, Hematochezia Genitourinary: Denies: Dysuria, Hematuria, Frequency Musculoskeletal: Denies: Back pain, Extremity Pain Skin: Denies: Rash, Wounds Neurological: Denies: Headache, Weakness, Numbness Physical Exam Vital Signs/Narrative: Vital Signs Temp Pulse Resp BP Pulse Ox 09/18/19 10:15 98.5 F 98 17 159/98 H 93 Inital Vital Signs reviewed: Yes General: Well nourished, Well developed, No Acute Distress Head: Normocephalic, Atraumatic Eyes: Perrl, EOMI ENT: Moist mucous membranes, No rhinorrhea Neck: Supple, Nontender Cardiovascular: Regular rate, Regular rhythm, No murmurs Respiratory: No distress, CTA bilaterally, Chest nontender Abdomen: Soft, Nontender, Nondistended, Normal bowel sounds Back: Nontender, Normal Inspection Extremities: Nontender, No edema Skin: Normal color, No rash, Trauma - There is a 0.5 cm linear laceration over the dorsal of the right thumb at the interphalangeal joint. Bleeding controlled. Neurological: Alert, Oriented x3, Cranial nerves II-XII grossly intact, Normal Strength, Normal Sensation Psychological: Normal affect, Normal Mood Diagnostic/Tx/Re-eval - Medical Decision Making As I take the thumb through his range of motion the wound does not gape open. I believe that using either stitches or glue or allowing it to heal on its own will have the same cosmetic and functional outcome. Therefore we will wash the wound apply bacitracin and a dressing. Wound care discussed with patient. Tetanus is up-to-date with ninfa. ED Disposition - Plan for ED Patient: Disposition: Home or Assisted Living Diagnosis: Laceration of right thumb, Need for tetanus, diphtheria, and acellular pertussis (Tdap) vaccine Instructions: ED Laceration Hand Referrals: Espinoza Lora DO [Primary Care Provider] - As Needed
[2019-09-18] MEDS: Diphth,Pertuss(Acell),Tet Vac 0.5 ML Vial IM (10:37)
== END 2019-09-18 12:11 | disposition home or self-care (01) ==
LOC: ED 10:44
PROVIDERS: Emergency Provider Emergency Medicine; PCP Preventive Medicine Occupational Medicine
DX: S61.011A Laceration without foreign body of right thumb without damage to nail, initial encounter (principal); W25.XXXA Contact with sharp glass, initial encounter; Y93.9 Activity, unspecified; Y92.9 Unspecified place or not applicable; Z23 Encounter for immunization
CPT/HCPCS: 90715; 99282

== ENCOUNTER → 2020-07-10 07:44 | Outpatient (CLI) | payer MEDICARE, OTHER, SELFPAY ==
--- NOTE | 2020-07-10 07:46 | BI_ITS ---
MAMMOGRAPHY - BILATERAL SCREENING REASON FOR EXAM: Female, 64 years old. Routine annual screening examination. PERTINENT HISTORY: Non-contributory. TECHNIQUE: Digital bilateral breast yuridia (3D mammographic acquisition) in the CC and MLO projections. 2-D mediolateral oblique (MLO) and craniocaudad (CC) views of both breasts were obtained. CAD: Full Field Digital Mammography with Computer Added Detection was performed. COMPARISON: Comparison is made with prior study dated 06/28/2019 and 02/16/2018. FINDINGS: Breast Composition: There are scattered areas of fibroglandular density. There is a 5.5 mm x 5.5 mm slightly spiculated nodule in the deep slightly medial aspect of the left breast. This is only visualized on the craniocaudad view. Correlation with ultrasound is recommended. Stable asymmetry of breast tissue with more breast tissue is seen in the upper-outer quadrant of the left breast as compared to the right side. No other significant abnormalities are identified. BI/SCRN MAMM (CAD)W/YURIDIA BILAT IMPRESSION: New 5.5 mm x 5.5 mm slightly spicular nodule in the deep slightly medial aspect of the left breast when he visualized on the craniocaudad view. Correlation with ultrasound is recommended. ASSESSMENT CATEGORY: BIRADS Category 0: Incomplete. Need additional imaging evaluation. A letter regarding these results will be sent to the patient by the facility within 30 days. Approximately 10% of breast cancers are not detected by mammography. A normal mammogram should not delay biopsy of a clinically suspicious abnormality. [id number] Electronically Signed: Nathaniel Lundy MD at 9:13 EST , Service support ,
== END ==
PROVIDERS: PCP Preventive Medicine Occupational Medicine; Referring Provider Preventive Medicine Occupational Medicine; Visit Provider Preventive Medicine Occupational Medicine
DX: Z12.31 Encounter for screening mammogram for malignant neoplasm of breast (principal)
CPT/HCPCS: 77063; 77067

== ENCOUNTER → 2020-07-13 14:49 | Outpatient (CLI) | payer MEDICARE, OTHER, SELFPAY ==
--- NOTE | 2020-07-13 15:02 | US_ITS ---
STUDY: ULTRASOUND BREAST - LEFT REASON FOR EXAM: Female, 64 years old. Abnormal screening mammogram. TECHNIQUE: Axial and longitudinal images of the LEFT breast were performed with a high resolution ultrasound transducer. # OF IMAGES: 35 COMPARISON: Comparison is made with prior mammogram dated 07/10/2020. FINDINGS: LEFT Breast: The medial half of the left breast was examined by ultrasound. There is a 3 mm x 3 mm x 3 mm cyst at the 10 o''clock position of the breast at 3 cm from the nipple. The mammographic abnormality is not seen on this examination. Additional views of the left breast will be obtained. US/Breast Limited Unilateral IMPRESSION: Incidental note is made of a 3 mm x 3 mm x 3 mm cyst at the 10 o''clock position in the breast at 3 cm from nipple. Additional mammographic views will be obtained. ASSESSMENT CATEGORY: BIRADS Category 0: Incomplete. Need additional imaging evaluation. A letter regarding these results will be sent to the patient by the facility within 30 days. Electronically Signed: Nathaniel Lundy MD at 15:41 EST , Service support ,
--- NOTE | 2020-07-13 15:22 | BI_ITS ---
MAMMOGRAPHY - UNILATERAL DIAGNOSTIC: LEFT BREAST REASON FOR EXAM: Female, 64 years old. Abnormal screening mammogram. PERTINENT HISTORY: Non-contributory. TECHNIQUE: Mediolateral oblique and craniocaudad views of the left breast were repeated. Were obtained. CAD: Full Field Digital Mammography with Computer Added Detection was performed. COMPARISON: Comparison is made with prior mammogram dated 07/10/2020. FINDINGS: Breast Composition: The breasts are heterogeneously dense, which may obscure small masses. Persistent 4.6 mm x 3.5 mm nodular density in the deep inferior medial aspect of the left breast. Ultrasound did not demonstrate any abnormality at that site. Correlation with MRI is recommended. No other significant abnormalities are identified. BI/DIAG MAMM W/CAD, UNILAT IMPRESSION: Persistent 4.6 mm x 3.5 mm nodular density in the deep medial inferior aspect of the left breast. No abnormality was seen on the sonogram. Correlation with MRI is recommended. ASSESSMENT CATEGORY: BIRADS Category 0: Incomplete. Need additional imaging evaluation. A letter regarding these results will be sent to the patient by the facility within 30 days. Approximately 10% of breast cancers are not detected by mammography. A normal mammogram should not delay biopsy of a clinically suspicious abnormality. Electronically Signed: Nathaniel Lundy MD at 10:11 EST , Service support ,
== END ==
PROVIDERS: PCP Preventive Medicine Occupational Medicine; Referring Provider Preventive Medicine Occupational Medicine; Visit Provider Preventive Medicine Occupational Medicine
DX: N60.02 Solitary cyst of left breast (principal)
CPT/HCPCS: 76642; 77065

== ENCOUNTER → 2020-07-31 12:24 | Outpatient (CLI) | payer MEDICARE, OTHER, SELFPAY ==
--- NOTE | 2020-07-31 12:40 | MRI_ITS ---
STUDY: BILATERAL BREAST MR WITHOUT AND WITH CONTRAST REASON FOR EXAM: Female, 64 years old. Left breast mass seen on mammogram but not seen on dedicated breast ultrasound. TECHNIQUE: Multi-sequence multi-echo imaging of both breasts was performed with a dedicated breast coil. T1-weighted and T2-weighted images were performed before the administration of contrast. T1-weighted images were also performed after the administration of 14 mL of Dotarem contrast without complications. COMPARISON: FINDINGS: RIGHT BREAST: The breast tissue is scattered fibroglandular densities with minimal background enhancement. There are no abnormal enhancing masses or areas of non-mass enhancement in the right breast. LEFT BREAST: The breast tissue is scattered fibroglandular densities with minimal background enhancement. 6 mm x 4 mm ovoid enhancing mass corresponding with the mammographic abnormality. This most likely represents a fibroadenoma. A six-month follow-up left mammogram is recommended to assess the stability of this lesion. If the lesion has changed, another targeted breast ultrasound would be appropriate. There are no enlarged or abnormal lymph nodes. There is no abnormality in the visualized regions of the chest or liver. MRI/Breast Bilateral W/O and W IMPRESSION: 6 mm x 4 mm ovoid enhancing mass in the far posterior aspect of the left corresponding to the mammographic abnormality, likely representing a fibroadenoma. A six-month follow-up left diagnostic mammogram is recommended, as outlined above. If the lesion has changed, another targeted left breast ultrasound is recommended. CATEGORY: BIRADS Category 3: Probably Benign - Short-Interval Follow-up Suggested. A letter regarding these results will be sent to the patient by the facility within 30 days. Electronically Signed: Mehdi Perla MD at 11:42 EST , Service support ,
== END ==
PROVIDERS: PCP Preventive Medicine Occupational Medicine; Referring Provider Preventive Medicine Occupational Medicine; Visit Provider Preventive Medicine Occupational Medicine
DX: D48.62 Neoplasm of uncertain behavior of left breast (principal)
CPT/HCPCS: 77049; A9575; A4216; C8908

== ENCOUNTER 2020-08-11 09:00 | Outpatient (RCR) | payer MEDICARE, OTHER, SELFPAY ==
[2020-08-11] MEDS: COVID-19 VACC, MRNA(PFIZER)/PF 30 MCG/0.3 ML SYRINGE IM (16:46)
[2020-09-01] MEDS: COVID-19 VACC, MRNA(PFIZER)/PF 30 MCG/0.3 ML SYRINGE IM (16:31)
== END 2020-11-10 23:59 ==
LOC: IMMUN 09:00
PROVIDERS: PCP Preventive Medicine Occupational Medicine; Visit Provider Family Medicine
DX: Z23 Encounter for immunization (principal)
CPT/HCPCS: 0001A; 0002A; 91300

== ENCOUNTER → 2021-01-07 08:45 | Outpatient (CLI) | payer MEDICARE, OTHER, SELFPAY ==
--- NOTE | 2021-01-07 08:50 | BI_ITS ---
MAMMOGRAPHY - UNILATERAL DIAGNOSTIC: LEFT BREAST REASON FOR EXAM: Female, 65 years old. LT BREAST DENSITY FOLLOW UP PERTINENT HISTORY: Follow-up nodular density in the inferior medial aspect of the left breast TECHNIQUE: Digital examination. Mediolateral oblique (MLO) and craniocaudad (CC) views of the breast were obtained. CAD: COMPARISON: Previous MRI of the left breast obtained on 07/31/2020, previous mammogram obtained on 08/02/2020 FINDINGS: Breast Composition: Heterogeneous There is a persistent nodular density seen in the inferior medial aspect left breast which was previously identified. This was reviewed on the MRI and shows dense enhancement. This is an indeterminate nodular density and while it may represent a fibroadenoma which is unchanged a slow-growing underlying tumor cannot be completely excluded. The lack of change would favor an enhancing fibroadenoma. No other significant abnormalities are identified. BI/DIAG MAMM W/CAD, UNILAT IMPRESSION: The nodular density in the inferior medial left breast is again identified and is unchanged. The lack of change indicates probably represents a benign entity such as a fibroadenoma, however, this still density enhances and an underlying tumor cannot been completely excluded. A targeted left breast ultrasound, and if found in ultrasound directed breast biopsy would be helpful for additional evaluation. Should this lesion cannot be found under ultrasound, a 6 month follow-up mammogram would then be recommended. ASSESSMENT CATEGORY: BIRADS Category 4: Suspicious - Biopsy Should Be Considered. A letter regarding these results will be sent to the patient by the facility within 30 days. FOLLOW-UP RECOMMENDATION: Ultrasound recommended. (I) Approximately 10% of breast cancers are not detected by mammography. A normal mammogram should not delay biopsy of a clinically suspicious abnormality. Electronically Signed: Damion Park DO at 16:31 EDT Tel , Service support ,
== END ==
PROVIDERS: PCP Preventive Medicine Occupational Medicine; Referring Provider Preventive Medicine Occupational Medicine; Visit Provider Preventive Medicine Occupational Medicine
DX: D48.62 Neoplasm of uncertain behavior of left breast (principal)
CPT/HCPCS: 77061; 77065; G0279

== ENCOUNTER → 2021-01-13 10:59 | Outpatient (CLI) | payer MEDICARE, OTHER, SELFPAY ==
--- NOTE | 2021-01-13 11:01 | US_ITS ---
STUDY: ULTRASOUND BREAST - LEFT REASON FOR EXAM: Female, 65 years old. Abnormal screening mammogram. TECHNIQUE: Axial and longitudinal images of the LEFT breast were performed with a high resolution ultrasound transducer. # OF IMAGES: 35 COMPARISON: Comparison is made with prior mammogram dated 01/07/2021 and prior ultrasound of the left breast dated 07/13/2020.. FINDINGS: LEFT Breast: The inferior medial aspect of the left breast was examined by ultrasound. There is a 6 mm x 6 mm x 2 mm hypoechoic solid nodule at the 7 o''clock position of the breast inframammary fold. US/Breast Limited Unilateral IMPRESSION: 6 mm x 6 mm x 2 mm hypoechoic solid nodule at the 7 o''clock position of the breast along the inframammary fold. A biopsy is recommended. ASSESSMENT CATEGORY: BIRADS Category 4: Suspicious - Biopsy Should Be Considered. A letter regarding these results will be sent to the patient by the facility within 30 days. Electronically Signed: Nathaniel Lundy MD at 15:18 EDT , Service support ,
== END ==
PROVIDERS: PCP Preventive Medicine Occupational Medicine; Referring Provider Preventive Medicine Occupational Medicine; Visit Provider Preventive Medicine Occupational Medicine
DX: N63.20 Unspecified lump in the left breast, unspecified quadrant (principal); R92.8 Other abnormal and inconclusive findings on diagnostic imaging of breast
CPT/HCPCS: 76642

== ENCOUNTER → 2021-01-26 10:35 | Outpatient (CLI) | payer MEDICARE, OTHER, SELFPAY ==
[2021-01-19 13:42] VITALS: BMI 27.7
--- NOTE | 2021-01-26 | IMM_PTH ---
PATIENT: KANIKA LOVELL LOC: [facility] U#:[id number] AGE/SX: 69/F ROOM: RE01/26/[address]: Dr. Espinoza Bhakta MD : 1955 BED: DIS: SPEC #: [id number] RECD: 01/27/21 12:02 STATUS: JUANA REAnnita #: [id number] ELLEN: 01/26/21 00:[address]: Espinoza Bhakta DEPT: IMMUNOHISTOCHEMISTRY RECD BY: Delmy Billings ENTERED: 01/27/21 12:04 SP TYPE: IMMUNO OTHR DR: Dr. Espinoza Lora DO Tissues: Left breast, NOS Procedures: CALPONIN-1 (add) CK5-6 (add) CK8 (add) E-CAD (add) HER2 SHAYE (add) KI-67 (add) P53 (add) WA (add) P40 (add) ER (initial) PHYSICIAN & INSTITUTION [place] [id number] SPECIMEN INFORMATION: Tissue Source: Left breast 7 o?clock Clinical Info: Left breast 7 o?clock Specimen Number: [id number] CPT code: 07505, 46351 x6, 44635 x3 METHODOLOGY: Deparaffinized sections of prefer/formalin-fixed tissue or PAP/DQ stained slides are incubated with monoclonal/polyclonal antibodies/oligonucleotide probes. Localization is made via biotin free immunoperoxidase method. Appropriate controls are performed and reacted as expected. Results on target cell population are indicated in the following table: RESULTS: ANTIBODY / CLONE RESULT E-Cad (ECH-6) positive CK8 (79zconT76) positive Calponin-1 (UM418O) negative CK5-6 (D5 & 1684) negative P40 (BC28) negative P53 (DO-7) negative Ki-67 (30-9) positive, low MORPHOMETRIC ANALYSIS ER (clone 6F11) >95%, strong intensity WA (clone 16/1E2) 48%, weak intensity Her-2Neu (clone CB11) 0 The prognostic test for HER2 is performed on formalin-fixed paraffin embedded tissue. A 3+ (positive) staining pattern is defined as intense, homogeneous, complete, circumferential membranous staining in >10% of contiguous tumor cells. A similar weak (2+) staining pattern is interpreted as equivocal. JENNIFER follow-up testing is recommended for all equivocal cases. Positivity/negativity for ER/WA is reported if > or < 1% of the tumor cells are immuno- reactive, respectively. The ASCO/CAP criteria is used for scoring. Reference: Journal of Clinical Oncology, 2013; 31:8255-4724 & 2010; 16:9594-9472. Duration of fixation: 7 Hrs; Sample Adequate: Yes. These assays have not been validated on decalcified tissues. Results should be interpreted with caution given the likelihood of false negativity on decalcified specimens. These tests were developed and their performance characteristics determined by [facility]. They may not have been cleared or approved by the U.S. Food and Drug Administration. The FDA has determined that such clearance or approval is not necessary. The above immunohistochemical/dualISH markers are ordered and reviewed by the Pathologist. INTERPRETATION: Left breast, 7 o?clock, ultrasound-guided core biopsy: Invasive ductal carcinoma, nuclear grade 1. Positive for estrogen receptors (favorable prognostic indicator). Positive for progesterone receptors (favorable prognostic indicator). Negative for overexpression of VTF8jcl. SJ:gregoria 01/28/2021
--- NOTE | 2021-01-26 | BRBX_PTH ---
PATIENT: KANIKA LOVELL LOC: [facility] U#:[id number] AGE/SX: 69/F ROOM: RE01/26/[address]: Dr. Espinoza Bhakta MD : 1955 BED: DIS: SPEC #: [id number] RECD: 01/26/21 12:28 STATUS: JUANA KEN #: [id number] ELLEN: 01/26/21 00:[address]: Espinoza Bhakta DEPT: SURGICAL PATHOLOGY RECD BY: Shivani Macedo ENTERED: 01/26/21 13:28 SP TYPE: BREAST BX OTHR DR: Dr. Espinoza Lora DO Tissues: Left breast, NOS Procedures: Surgery Specimen Level IV HEADER OPERATION: Ultrasound-guided left breast biopsy PRE-OP DIAGNOSIS: Left breast 7 o?clock TISSUE SUBMITTED: Left breast 7 o?clock MICROSCOPIC DIAGNOSIS Left breast, 7 o?clock, ultrasound-guided core biopsy: Invasive ductal carcinoma, nuclear grade 1 (0.8 cm in greatest length). See comment. GERARDO:gregoria 01/27/2021 COMMENT Immunohistochemistry ([id number]) supports the above diagnosis. ER/CA/Byq3ubo studies are being performed on sections of tumor and the results from this study will be reported separately ([id number]). MICROSCOPIC DESCRIPTION Slides are reviewed. GROSS DESCRIPTION Received in fixative is one container labeled with the patient name and designated left breast. The specimen consists of multiple elongated fragments of ayala-yellow fibroadipose tissue that in aggregate measure 1.5 x 0.5 x 0.1 cm. The entire specimen is submitted in one cassette. / GERARDO:gregoria 01/26/21 TC:0 [facility]: [id number]
--- NOTE | 2021-01-26 10:37 | US_ITS ---
ULTRASOUND GUIDED CORE BIOPSY REASON FOR EXAM: Female, 65 years old. Clip placement post u/s biopsy PERTINENT HISTORY: Ultrasound guided breast biopsy of a nodule in the inframammary fold of the left breast. COMPARISON: None. TECHNIQUE: (All elements of maximal sterile barrier technique followed, including US elements as applicable) Ultrasound guided left breast biopsy performed by the surgeon. US/US Breast Biopsy 1st Lesion IMPRESSION: A tissue clip marker is seen in the deep inferior medial aspect of the left breast following the ultrasound-guided breast biopsy. Electronically Signed: Nathaniel Lundy MD at 12:32 EDT , Service support ,
--- NOTE | 2021-01-26 10:59 | PCM.HP.BLA ---
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 Is patient in pain?: No Allergies dexlansoprazole [From Dexilant] Adverse Reaction (Mild, Verified 01/19/21 13:40) gi upset Medications amitriptyline 50 mg PO DAILY 11/17/13 [History Confirmed 01/19/21] aspirin 81 mg PO DAILY@0800 03/23/14 [History Confirmed 01/19/21] Pravastatin Sodium 40 mg PO DAILY 10/17/16 [History Confirmed 01/19/21] Quinapril Hcl [Accupril] 40 mg PO DAILY 10/17/16 [History Confirmed 01/19/21] rchontwyvsao-Lf-sznl-minerals [Multiple Vitamin, Womens] 1 tab PO DAILY 10/17/16 [History Confirmed 01/19/21] acetaminophen 650 mg PO Q4H PRN PRN #0 tab 10/19/16 [Rx Confirmed 01/19/21] calcium citrate 315 mg-vitamin D3 5 mcg (200 unit) tablet 1 tab PO DAILY 01/19/21 [History Confirmed 01/19/21] ibuprofen 600 mg tablet 600 mg PO 4X/DAY PRN tab 01/19/21 [History] pantoprazole 40 mg tablet,delayed release tablet PO 01/19/21 [History Confirmed 01/19/21] Is last menstrual period known: No Post menopausal: Yes Patient : No PFSH Medical History (Updated 01/19/21 @ 14:43 by Nara LARES, PA-C) Abnormal mammogram GERD (gastroesophageal reflux disease) Osteoarthritis Surgical History (Updated 01/19/21 @ 13:37 by Haley Amaya) History of appendectomy History of bilateral carpal tunnel release History of cervical discectomy History of colonoscopy History of hysterectomy History of thumb surgery Family History (Updated 01/19/21 @ 13:39 by Haley Amaya) Father Heart disease Myocardial infarction Mother Diabetes Brother Diabetes Sister Diabetes Social History Smoking Status: Former smoker HPI HPI HPI: KANIKA LOVELL, is a 65 F who presents to the office today for abnormal mammogram. Patient had a screening mammogram in July this year. This required additional imaging of the left breast with ultrasound which demonstrated a spiculated nodule measuring 5.5 x 5.5 cm medial aspect of the breast. She also obtained an MRI of bilateral breasts on 07/31/20 which demonstrated 6 x 4 mm ovoid mass far posterior aspect of the left breast likely representing fibroadenoma. Short 6 month follow-up imaging was recommended which was completed on 01/07/21. Results demonstrated persistent nodular density in the inferior medial aspect left breast. A limited left breast ultrasound demonstrated 6 x 6 x 2 mm solid nodule at the 7 o'clock position of the breast along the inframammary fold. Biopsy is being recommended category 4. Patient states 2 years ago she had a fall at work and broke ribs of the left chest. She also noted significant bruising of the left breast. She stated she fell off a two step ladder. She notes her 1st menstrual cycle was at age 11. She had a hysterectomy at age 26 y/o. She believes she has one ovary remaining. She has not had a menstrual cycle since her hysterectomy. She has had 2 vaginal births with no complications. She did not breast feed. She denies family history of breast cancer. She denies nipple drainage or discharge. She does not perform self breast exams. She has never taken hormonal supplementation. She notes stopping smoking 20 years ago. She notes having a stroke 4 years ago. She was employed by [employer] and retired last April. She denies previous breast biopsies. She does take an 81 mg aspirin. STUDY: ULTRASOUND BREAST - LEFT REASON FOR EXAM: Female, 65 years old. Abnormal screening mammogram. TECHNIQUE: Axial and longitudinal images of the LEFT breast were performed with a high resolution ultrasound transducer. # OF IMAGES: 35 COMPARISON: Comparison is made with prior mammogram dated 01/07/2021 and prior ultrasound of the left breast dated 07/13/2020.. FINDINGS: LEFT Breast: The inferior medial aspect of the left breast was examined by ultrasound. There is a 6 mm x 6 mm x 2 mm hypoechoic solid nodule at the 7 o''clock position of the breast inframammary fold. US/Breast Limited Unilateral IMPRESSION: 6 mm x 6 mm x 2 mm hypoechoic solid nodule at the 7 o''clock position of the breast along the inframammary fold. A biopsy is recommended. ASSESSMENT CATEGORY: BIRADS Category 4: Suspicious - Biopsy Should Be Considered. A letter regarding these results will be sent to the patient by the facility within 30 days. Electronically Signed: Nathaniel Lundy MD at 15:18 EDT , Service support , ROS General General: No weight change, appetite, fatigue, colon cancer, breast cancer or weakness HEENT HEENT: No difficulty swallowing, eye injury, eye surgery, swollen glands or hoarseness Endo Endocrine: No thyroid disease, diabetes mellitus, thyroid cancer, Hair loss, heat intolerance or cold intolerance Breast Breast: Yes left breast lump, abnormal mammogram and abnormal US; No right breast lump, nipple discharge, breast pain or breast enlargement Musc Musculoskeletal: Yes arthritis; No back problems, rheumatoid arthritis, gout or joint pain Cardio Cardiovascular: Yes high blood pressure; No murmur, pacemaker, heart disease, atrial fibrillation, heart attack, heart stent, palpitations, shortness of breat with exertion or chest pain Psych Psychiatric: No depression, anxiety or hearing voices Resp Respiratory: No shortness of breath, No sleep apnea, No cough, No COPD, No asthma, No emphysema and No wheezing Gastro Gastrointestinal: No abdominal pain, No nausea or vomiting, No diarrhea, No constipation, No blood in stool, Yes acid reflux, No hemorrhoids, No ulcers, No gallbladder problem and No black,tarry stools Laurent Hematologic: No blood thinners, No blood disorders, No bleeding, No anemia and No blood clots Neuro Neurologic: No weakness Exam Const General: cooperative, healthy appearing, comfortable and no acute distress [facility] Head: normal to inspection Eyes General: appearance normal, both eyes and all related structures Neck Neck: normal visual inspection Neck mass: No Chest Chest palpation & inspection: normal inspection of the chest Breast inspection: normal inspection of the breasts Breast Palpation: Yes normal palpation of the breasts, Yes no axillary lymphadenopathy and Yes abnormal palpation of the axilla Resp Effort & Inspection: normal respiratory effort Auscultation: clear to auscultation bilaterally Cardio Rate: regular rate Rhythm: regular rhythm GI Inspection: normal to inspection Percussion: normal to percussion Auscultation: normal bowel sounds Skin General: no rashes or lesions noted Neuro General: no focal motor deficits and CN's II-XI intact bilaterally Extrem General: normal to inspection Psych Appearance: grossly normal Affect: normal affect Assessment and Plan Assessment and Plan (1) Abnormal mammogram: Status: Acute Plan - Nara LARES, PA-C: Dr. Bhakta has also evaluated this patient. Left breast nodule is not able to be visualized clearly with our ultrasound machine in the office. Dr. Bhakta has proposed an ultrasound guided left breast biopsy. Procedure details, risks and benefits have been explained to the patient. She will hold her aspirin for 5 days. She has had the opportunity to ask and have questions answered. Patient verbally understands and agrees with the plan. I have removed a skin tag under her left breast with 4 cc 1% lidocaine and hand held cautery during this same visit. I have re-examined the patient. There are no clinical changes since date of exam. Espinoza Bhakta M.D., F.A.C.S.
--- NOTE | 2021-01-26 11:57 | BI_ITS ---
ULTRASOUND GUIDED CORE BIOPSY REASON FOR EXAM: Female, 65 years old. Clip placement post u/s biopsy PERTINENT HISTORY: Ultrasound guided breast biopsy of a nodule in the inframammary fold of the left breast. COMPARISON: None. TECHNIQUE: (All elements of maximal sterile barrier technique followed, including US elements as applicable) Ultrasound guided left breast biopsy performed by the surgeon. BI/DIAG MAMM W/CAD, UNILAT IMPRESSION: A tissue clip marker is seen in the deep inferior medial aspect of the left breast following the ultrasound-guided breast biopsy. Electronically Signed: Nathaniel Lundy MD at 12:32 EDT , Service support ,
--- NOTE | 2021-01-26 11:59 | OP.PCM_ITS ---
Problems Associated Problem List Diagnoses (1) Abnormal mammogram: (2) Abnormal ultrasound of breast: Report of Operation Date of Procedure: 01/26/21 Pre-Operative Diagnosis: Abnormal left unilateral mammogram density lower inner left breast. Abnormal left breast ultrasound. Post-Operative Diagnosis: Same Surgery/Procedure Performed:: Ultrasound-guided needle core biopsy lower inner left breast 7 o'clock position inframammary fold. Description of Surgical Findings:: Timeout and informed consent was obtained. 65-year-old female was taken to the ultrasound suite. With the assistance of ultrasound techs was able to identify the lesion left breast 7 o'clock position inframammary fold. This was felt to be consistent with the ultrasound lesion identified prior. Under ultrasound guidance the breast was prepped with chlorhexidine and sterile probe was used and 1% lidocaine was instilled total of 8 cc. A small stab incision was created and a 14-gauge Monopty needle was adva nced to prefire depth. Pre and post fire films were obtained. 6 cores were obtained. Marking clip was left in position. Pressure was held for hemostasis. Steri-Strip Telfa OpSite dressing applied. She tolerated it well. She is subsequently taken for postbiopsy mammographic imaging. The core samples were immediately transferred to formalin for analysis. Specimens cores. Drains none. Blood loss minimal. Espinoza Bhakta M.D., F.A.C.S. Surgeon: Espinoza Bhakta Type of Anesthesia: Local
== END ==
PROVIDERS: PCP Preventive Medicine Occupational Medicine; Referring Provider Surgery; Visit Provider Surgery
DX: C50.912 Malignant neoplasm of unspecified site of left female breast (principal); K21.9 Gastro-esophageal reflux disease without esophagitis; M19.90 Unspecified osteoarthritis, unspecified site; Z78.0 Asymptomatic menopausal state; Z79.899 Other long term (current) drug therapy; Z87.891 Personal history of nicotine dependence; R92.8 Other abnormal and inconclusive findings on diagnostic imaging of breast
CPT/HCPCS: 19083; 77065; 88305; 88341; 88342

== ENCOUNTER 2021-02-10 07:18 | Day surgery (SDC) | payer MEDICARE, OTHER, SELFPAY ==
[2021-02-10] VITALS (9 sets, daily range): BP systolic 105–139; BP diastolic 72–90; PULSE 74–87; RESP 16; TEMP 36.2–37.2; O2SAT 94–97; BMI 28.1
--- NOTE | 2021-02-10 | AXNB_PTH ---
PATIENT: KANIKA LOVELL [place] [facility] [id number] AGE/SX: 65/F ROOM: RE02/10/[address]: Dr. Espinoza Bhakta MD : 1955 BED: DIS: 02/10/2021 SPEC #: [id number] RECD: 02/10/21 11:36 STATUS: JUANA ROGERS #: [id number] ELLEN: 02/10/21 00:[address]: Espinoza Bhakta DEPT: SURGICAL PATHOLOGY RECD BY: Juan Antonio Tejeda ENTERED: 02/10/21 13:17 SP TYPE: AX NODE BX OTHR DR: Dr. Espinoza Lora DO Tissues: A - Axillary lymph node, NOS B - Left breast, NOS Procedures: Frozen Section (charge) Frozen Section Add'l ([facility]) Surgery Specimen Level V HEADER OPERATION: Ultrasound guided wire localization lumpectomy PRE-OP DIAGNOSIS: Small lower inner left breast cancer invasive ductal carcinoma TISSUE SUBMITTED: A. Left sentinel lymph nodes, axillary, B. Left breast mass FROZEN SECTION DIAGNOSIS A. Left axillary sentinel lymph nodes, biopsy: Two out of two lymph nodes negative for carcinoma. AM:mera 02/10/21 MICROSCOPIC DIAGNOSIS A. Left axillary sentinel lymph nodes, biopsy: Two out of two lymph nodes negative for carcinoma. See comment. B. Left breast mass, lumpectomy: Invasive ductal carcinoma. See cancer checklist below. AM:gregoria 02/15/2021 COMMENT A. Immunohistochemistry ([id number]) supports the above diagnosis. B. INVASIVE BREAST CANCER SUMMARY Specimen: Type: Partial Size: 7.5 x 6 x 1.5 cm Laterality: Left breast Invasive Tumor: Size: 6 x 5.5 x 5.5 millimeters Site: Left breast Histologic type: Invasive ductal carcinoma. Focality: Single focus of carcinoma. Histologic grade ([place] grade): Glandular/tubular differentiation score: 2 Nuclear pleomorphism score: 1 Mitotic count score: 1 Overall grade: 1 (score of 4) Ductal Carcinoma In Situ: Not present Lobular Carcinoma In Situ: Not present Tumor extension: Skin: Not present Nipple: Not present Skeletal muscle: Not present Margins: Distance of invasive margin from closest (anterior) margin is 8 millimeters. Lymph Nodes: Number of sentinel lymph nodes examined: 2 Total number of lymph nodes examined: 2 No evidence of macrometastases, micrometastases or isolated tumor cells See specimen ?A? Treatment Effect: Unknown Lymphvascular invasion: Not identified Perineural invasion: Focally present Additional Pathologic Findings: None Ancillary Studies: Previously performed on same tumor ([id number] / [id number]) ER: Positive (>95%, strong intensity) DE: Positive (48%, weak intensity) Mro8xur: Negative (0) Microcalcifications: Focally present in area of biopsy. Clinical History: Mass of left breast. PATHOLOGIC STAGE: T1b N0 Mx The above summary is in compliance with [employer] (CAP) Cancer Protocols Checklist and [place] Joint Committee on Cancer (AJCC), Staging Manual, 8th Ed. Reference is made to the patient's previous left breast at 7 o?clock, core biopsy ([id number]) in which invasive ductal carcinoma, nuclear grade 1 was identified. Case has been reviewed in consultation with Dr. Diane who concurs with the above diagnosis. IDC:[id number] MICROSCOPIC DESCRIPTION Slides are reviewed. GROSS DESCRIPTION A - Received fresh for frozen section consultation labeled with the patient's name is a specimen designated left sentinel lymph node?. The specimen consists an irregular fragment of ayala-yellow fibrofatty tissue measuring 4.5 x 4 x 1 cm. Dissection reveals two nodules resembling lymph nodes ranging in size from 2 to 3 cm in greatest dimension. The lymph nodes are bisected and totally submitted in two blocks for frozen section consultation. / AM:gregoria 02/12/21 B - Received fresh for consultation and labeled with the patient name and designated left breast mass. The specimen consists of a wire containing an oriented fragment of ayala-yellow fibrofatty tissue measuring 7.5 x 6 x 1.5 cm. The specimen is differentially inked as follows: anterior - yellow, posterior - black, superior - blue, inferior - green, medial - red and lateral - orange. Serial sections reveal a small biopsy cavity with area of induration measuring 5 mm in greatest dimension and containing a metallic clip. This lesion is location 0.8 cm from its closest (anterior) margin of resection. This information is conveyed to the surgeon intraoperatively. The specimen is serially sectioned and left for additional fixation. After additional fixation, insurance follow up representative sections are submitted in 12 cassettes as follows: 1-3 - perpendicular inked margins, 4 & 5 - biopsy cavity with area of induration, 6-12 - insurance follow up representative sections of uninvolved breast parenchyma adjacent to and away from lesion. / AM:gregoria 02/12/21 TC:0 CPT: 31219 x2, 87880, 00270 x3 ADDENDUM ADDENDUM ADDENDUM ADDENDUM ADDENDUM ADDENDUM ADDENDUM ADDENDUM 03/08/2021 10:05 ADDENDUM 03/08/2021 10:05 ADDENDUM 03/08/2021 10:05 ADDENDUM 03/08/2021 10:05 ADDENDUM 03/08/2021 10:05 An order for Oncotype testing was received from Dr. Cortez. This necessitated case review, block and slide selection by pathologist at [facility]. Breast Cancer Recurrence Score = 22 Results of the complete Oncotype testing ([employer] report) are viewable in EMR under: Reports - Pathology - Lab Pathology Report, Scanned.
--- NOTE | 2021-02-10 | IMM_PTH ---
PATIENT: KANIKA LOVELL LOC: [facility] [place] U#:[id number] AGE/SX: 65/F ROOM: RE02/10/[address]: Dr. Espinoza Bhakta MD : 1955 BED: DIS: 02/10/2021 SPEC #: [id number] RECD: 02/15/21 14:08 STATUS: JUANA REAnnita #: [id number] ELLEN: 02/10/21 00:[address]: Espinoza Bhakta DEPT: IMMUNOHISTOCHEMISTRY RECD BY: Delmy Billings ENTERED: 02/15/21 14:09 SP TYPE: IMMUNO OTHR DR: Dr. Espinoza Lora DO Tissues: A - Axillary lymph node, NOS Procedures: CK8 (add) Pankeratin (initial) Pankeratin (add) PHYSICIAN & INSTITUTION [place] [id number] SPECIMEN INFORMATION: Tissue Source: A ? Left axillary sentinel lymph node Clinical Info: Small lower inner left breast invasive ductal carcinoma Specimen Number: [id number] A1-A4 CPT code: 71317, 48305 x7 METHODOLOGY: Deparaffinized sections of prefer/formalin-fixed tissue or PAP/DQ stained slides are incubated with monoclonal/polyclonal antibodies/oligonucleotide probes. Localization is made via biotin free immunoperoxidase method. Appropriate controls are performed and reacted as expected. Results on target cell population are indicated in the following table: RESULTS: ANTIBODY / CLONE RESULT Block A1 AE1-3 (AE1/AE3/PCK26) negative CK8 ([id number]) negative Block A2 AE1-3 (AE1/AE3/PCK26) negative CK8 ([id number]) negative Block A3 AE1-3 (AE1/AE3/PCK26) negative CK8 (85nesqZ28) negative Block A4 AE1-3 (AE1/AE3/PCK26) negative CK8 ([id number]) negative These tests were developed and their performance characteristics determined by [facility]. They may not have been cleared or approved by the U.S. Food and Drug Administration. The FDA has determined that such clearance or approval is not necessary. The above immunohistochemical/dualISH markers are ordered and reviewed by the Pathologist. INTERPRETATION: A. Left axillary sentinel lymph node, biopsy: Two out of two lymph nodes negative for carcinoma. AM:gregoria 02/16/2021
--- NOTE | 2021-02-10 07:28 | RAD_ITS ---
STUDY: X-RAY CHEST REASON FOR EXAM: Female, 65 years old. Pre-op. Smoker for 20 years quit 16 years ago. TECHNIQUE: PA and lateral views of the chest. COMPARISON: 10/29/2018. FINDINGS: The lungs are clear and expanded. There is no demonstrated pleural abnormality. Normal size heart. Normal mediastinum and dax. Normal visualized pulmonary arteries. Normal visualized aortic arch and descending thoracic aorta. Mild degenerative changes of the thoracic spine. Normal visualized ribs, clavicles, and shoulders. There is no demonstrated abnormality of the visualized soft tissue structures of the upper abdomen. RAD/Chest PA and Lateral IMPRESSION: No acute cardiopulmonary disease or major interval change. Electronically Signed: Sebas Richardson DO at 23:46 EDT Tel [phone], Service support ,
--- NOTE | 2021-02-10 07:40 | EKG12_ITS ---
Test Reason : PRE OP Blood Pressure : / mmHG Vent. Rate : 083 BPM Atrial Rate : 083 BPM P-R Int : 152 ms QRS Dur : 072 ms QT Int : 432 ms P-R-T Axes : -06 010 019 degrees QTc Int : 507 ms Normal sinus rhythm Inferior infarct , age undetermined , cannot be excluded Abnormal ECG Confirmed by EUGENIO ROA, KENNETH ([id number]), film editor supervisor PREET REYNOLDS ([id number]) on 02/18/2021 10:15:06 AM Referred By: Espinoza Bhakta Confirmed By:KENNETH BECKER MD
--- NOTE | 2021-02-10 08:00 | NM_ITS ---
PROCEDURE: NUCLEAR MEDICINE Injection [place] Node - LEFT breast(s). REASON FOR EXAM: Female, 65 years old. Left breast cancer. TECHNIQUE: [place] node localization using radionuclide methods of the LEFT breast(s) was performed following subcutaneous administration of 1.1 mCi of of sulfur colloid Tc-99m. FINDINGS: 1.1 mCi of technetium labeled sulfur colloid was injected subcutaneously in 4 equal aliquots along the medial aspect of the [place] NM/Lymph Node Injection Only IMPRESSION: Subcutaneous injection of 1.4 mCi of technetium sulfur colloid along the medial aspect of the [place]. Electronically Signed: Nathaniel Lundy MD at 8:36 EDT , Service support ,
[2021-02-10] MEDS: Lactated Ringers 1,000 ML 100 ML IV ×2 (08:40→11:45)
[2021-02-10 08:50] LABS: Hematocrit 40.1 % (37-47); Hemoglobin 13.2 g/dL (12.0-15.0); Mean Corp Hgb Conc 32.9 g/dL (32-36); Mean Corpuscular Hgb 27.6 pg (27.0-32.0); Mean Corpuscular Volume 83.7 fL (81-99); Mean Platelet Vol. 9.1 fl (6.2-12.0); Platelet Count 365 K/mm3 (150-450); RBC Distribution Width SD 39.8 fl (35.1-43.9); Red Blood Count 4.79 M/mm3 (4.2-5.4); White Blood Count 5.6 K/mm3 (4.4-11.0)
[2021-02-10 09:10] LABS: ALB/GLOB Ratio 1.1 RATIO (0.9-2.4); AST(SGOT) 15 U/L (15-37); Alanine Aminotransfer ALT/SGPT 29 U/L (13-56); Albumin, Serum 4.1 g/dL (3.2-5.0); Alkaline Phosphatase 81 U/L (45-117); Anion Gap 7 (5-15); BUN 12 mg/dL (7-18); BUN/Creat Ratio 14.3 RATIO (10-20); Calcium,Total 9.1 mg/dL (8.5-10.1); Chloride 105 mmol/L (98-107); Creatinine, Serum 0.84 mg/dL (0.55-1.02); EST Glomerular Filtration Rate 72 mL/min (>60); Est Glom Filt Rate - Afr Amer 87 mL/min (>60); Estimated Creatinine Clearance 56.12 ml/min; Globulin 3.8 g/dL (2.2-4.2); Glucose 113 mg/dL (74-106); Potassium 3.9 mmol/L (3.5-5.1); Protein, Total 7.9 g/dL (6.4-8.2); Sodium Level 138 mmol/L (136-145)
--- NOTE | 2021-02-10 09:13 | PCM.HP.BLA ---
History and Physical Date of Admission: 02/10/21 Intake Visit Reasons: discuss surgery Chief Complaint: discuss surgery Cloth Bin Packer Required: No Is patient in pain?: No Allergies dexlansoprazole [From Dexilant] Adverse Reaction (Mild, Verified 01/29/21 12:56) gi upset Medications amitriptyline 50 mg PO DAILY 11/17/13 [History Confirmed 01/29/21] aspirin 81 mg PO DAILY@0800 03/23/14 [History Confirmed 01/29/21] Pravastatin Sodium 40 mg PO DAILY 10/17/16 [History Confirmed 01/29/21] Quinapril Hcl [Accupril] 40 mg PO DAILY 10/17/16 [History Confirmed 01/29/21] wnokfargpfmh-Nn-rmvl-minerals [Multiple Vitamin, Womens] 1 tab PO DAILY 10/17/16 [History Confirmed 01/29/21] acetaminophen 650 mg PO Q4H PRN PRN #0 tab 10/19/16 [Rx Confirmed 01/29/21] calcium citrate 315 mg-vitamin D3 5 mcg (200 unit) tablet 1 tab PO DAILY 01/19/21 [History Confirmed 01/29/21] ibuprofen 600 mg tablet 600 mg PO 4X/DAY PRN tab 01/19/21 [History Confirmed 01/29/21] pantoprazole 40 mg tablet,delayed release tablet PO 01/19/21 [History Confirmed 01/29/21] Is last menstrual period known: No Post menopausal: Yes Patient : No PFSH Medical History (Updated 01/29/21 @ 13:[address] Espinoza Bhakta MD) Abnormal mammogram GERD (gastroesophageal reflux disease) Osteoarthritis Surgical History (Updated 01/29/21 @ 12:56 by Haley Amaya) History of appendectomy History of bilateral carpal tunnel release History of breast biopsy (~01/2021) History of cervical discectomy History of colonoscopy History of hysterectomy History of thumb surgery Family History (Updated 01/19/21 @ 13:39 by Haley Amaya) Father Heart disease Myocardial infarction Mother Diabetes Brother Diabetes Sister Diabetes Social History Smoking Status: Former smoker HPI HPI HPI: KANIKA LOVELL, is a 65 F who presents to the office today for surgical session of ultrasound-guided needle core biopsy inframammary fold lower inner left breast Pathology demonstrates invasive ductal carcinoma, grade 1. 0.8 cm long. Estrogen receptor greater than 95%. Progesterone receptor 48%. HER-2/uday 0. It is of note that imaging July 2020 identified this area. MRI suggested possible benign. On the follow-up imaging January 07, 2021 it was recommended that this area be biopsied instead. It is too far posterior to allow for stereotactic access. Ultrasound biopsy had to be performed in the department in order to facilitate imaging Problems Associated Problem List Diagnoses (1) Abnormal mammogram: (2) Abnormal ultrasound of breast: Report of Operation Date of Procedure: 01/26/21 Pre-Operative Diagnosis: Abnormal left unilateral mammogram density lower inner left breast. Abnormal left breast ultrasound. Post-Operative Diagnosis: Same Surgery/Procedure Performed:: Ultrasound-guided needle core biopsy lower inner left breast 7 o'clock position inframammary fold. My previous notes reflect the following Intake Visit Reasons: BIRADS 4 LEFT BREAST Chief Complaint: abn mammo left Cloth Bin Packer Required: No Is patient in pain?: No Allergies dexlansoprazole [From Dexilant] Adverse Reaction (Mild, Verified 01/19/21 13:40) gi upset Medications amitriptyline 50 mg PO DAILY 11/17/13 [History Confirmed 01/19/21] aspirin 81 mg PO DAILY@0800 03/23/14 [History Confirmed 01/19/21] Pravastatin Sodium 40 mg PO DAILY 10/17/16 [History Confirmed 01/19/21] Quinapril Hcl [Accupril] 40 mg PO DAILY 10/17/16 [History Confirmed 01/19/21] fvkuybehizmh-Il-vdmq-minerals [Multiple Vitamin, Womens] 1 tab PO DAILY 10/17/16 [History Confirmed 01/19/21] acetaminophen 650 mg PO Q4H PRN PRN #0 tab 10/19/16 [Rx Confirmed 01/19/21] calcium citrate 315 mg-vitamin D3 5 mcg (200 unit) tablet 1 tab PO DAILY 01/19/21 [History Confirmed 01/19/21] ibuprofen 600 mg tablet 600 mg PO 4X/DAY PRN tab 01/19/21 [History] pantoprazole 40 mg tablet,delayed release tablet PO 01/19/21 [History Confirmed 01/19/21] Is last menstrual period known: No Post menopausal: Yes Patient : No PFSH Medical History (Updated 01/19/21 @ 14:43 by Nara LARES PA-C) Abnormal mammogram GERD (gastroesophageal reflux disease) Osteoarthritis Surgical History (Updated 01/19/21 @ 13:37 by aHley Amaya) History of appendectomy History of bilateral carpal tunnel release History of cervical discectomy History of colonoscopy History of hysterectomy History of thumb surgery Family History (Updated 01/19/21 @ 13:39 by Haley Amaya) Father Heart disease Myocardial infarction Mother Diabetes Brother Diabetes Sister Diabetes Social History Smoking Status: Former smoker HPI HPI HPI: KANIKA LOVELL, is a 65 F who presents to the office today for abnormal mammogram. Patient had a screening mammogram in July this year. This required additional imaging of the left breast with ultrasound which demonstrated a spiculated nodule measuring 5.5 x 5.5 mm medial aspect of the breast. She also obtained an MRI of bilateral breasts on 07/31/20 which demonstrated 6 x 4 mm ovoid mass far posterior aspect of the left breast likely representing fibroadenoma. Short 6 month follow-up imaging was recommended which was completed on 01/07/21. Results demonstrated persistent nodular density in the inferior medial aspect left breast. A limited left breast ultrasound demonstrated 6 x 6 x 2 mm solid nodule at the 7 o'clock position of the breast along the inframammary fold. Biopsy is being recommended category 4. Patient states 2 years ago she had a fall at work and broke ribs of the left chest. She also noted significant bruising of the left breast. She stated she fell off a two step ladder. She notes her 1st menstrual cycle was at age 11. She had a hysterectomy at age 26 y/o. She believes she has one ovary remaining. She has not had a menstrual cycle since her hysterectomy. She has had 2 vaginal births with no complications. She did not breast feed. She denies family history of breast cancer. She denies nipple drainage or discharge. She does not perform self breast exams. She has never taken hormonal supplementation. She notes stopping smoking 20 years ago. She notes having a stroke 4 years ago. She was employed by [employer] and retired last April. She denies previous breast biopsies. She does take an 81 mg aspirin. STUDY: ULTRASOUND BREAST - LEFT REASON FOR EXAM: Female, 65 years old. Abnormal screening mammogram. TECHNIQUE: Axial and longitudinal images of the LEFT breast were performed with a high resolution ultrasound transducer. # OF IMAGES: 35 COMPARISON: Comparison is made with prior mammogram dated 01/07/2021 and prior ultrasound of the left breast dated 07/13/2020.. FINDINGS: LEFT Breast: The inferior medial aspect of the left breast was examined by ultrasound. There is a 6 mm x 6 mm x 2 mm hypoechoic solid nodule at the 7 o''clock position of the breast inframammary fold. US/Breast Limited Unilateral IMPRESSION: 6 mm x 6 mm x 2 mm hypoechoic solid nodule at the 7 o''clock position of the breast along the inframammary fold. A biopsy is recommended. ASSESSMENT CATEGORY: BIRADS Category 4: Suspicious - Biopsy Should Be Considered. A letter regarding these results will be sent to the patient by the facility within 30 days. Electronically Signed: Nathaniel Lundy MD at 15:18 EDT , Service support , ROS General General: No weight change, appetite, fatigue, colon cancer, breast cancer or weakness HEENT HEENT: No difficulty swallowing, eye injury, eye surgery, swollen glands or hoarseness Endo Endocrine: No thyroid disease, diabetes mellitus, thyroid cancer, Hair loss, heat intolerance or cold intolerance Breast Breast: Yes left breast lump, abnormal mammogram and abnormal US; No right breast lump, nipple discharge, breast pain or breast enlargement Musc Musculoskeletal: Yes arthritis; No back problems, rheumatoid arthritis, gout or joint pain Cardio Cardiovascular: Yes high blood pressure; No murmur, pacemaker, heart disease, atrial fibrillation, heart attack, heart stent, palpitations, shortness of breat with exertion or chest pain Psych Psychiatric: No depression, anxiety or hearing voices Resp Respiratory: No shortness of breath, No sleep apnea, No cough, No COPD, No asthma, No emphysema and No wheezing Gastro Gastrointestinal: No abdominal pain, No nausea or vomiting, No diarrhea, No constipation, No blood in stool, Yes acid reflux, No hemorrhoids, No ulcers, No gallbladder problem and No black,tarry stools Laurent Hematologic: No blood thinners, No blood disorders, No bleeding, No anemia and No blood clots Neuro Neurologic: No weakness Exam Const General: cooperative, healthy appearing, comfortable and no acute distress [facility] Head: normal to inspection Eyes General: appearance normal, both eyes and all related structures Neck Neck: normal visual inspection Neck mass: No Chest Chest palpation & inspection: normal inspection of the chest Breast inspection: normal inspection of the breasts Breast Palpation: Yes normal palpation of the breasts, Yes no axillary lymphadenopathy and Yes abnormal palpation of the axilla Resp Effort & Inspection: normal respiratory effort Auscultation: clear to auscultation bilaterally Cardio Rate: regular rate Rhythm: regular rhythm GI Inspection: normal to inspection Percussion: normal to percussion Auscultation: normal bowel sounds Skin General: no rashes or lesions noted Neuro General: no focal motor deficits and CN's II-XI intact bilaterally Extrem General: normal to inspection Psych Appearance: grossly normal Affect: normal affect Assessment and Plan Assessment and Plan (1) Abnormal mammogram: Status: Acute Plan - Nara LARES PANicolasaC: Dr. Bhakta has also evaluated this patient. Left breast nodule is not able to be visualized clearly with our ultrasound machine in the office. Dr. Bhakta has proposed an ultrasound guided left breast biopsy. Procedure details, risks and benefits have been explained to the patient. She will hold her aspirin for 5 days. She has had the opportunity to ask and have questions answered. Patient verbally understands and agrees with the plan. ROS General General: No weight change, appetite, fatigue, colon cancer, breast cancer or weakness HEENT HEENT: No difficulty swallowing, eye injury, eye surgery, swollen glands or hoarseness Endo Endocrine: No thyroid disease, diabetes mellitus, thyroid cancer, Hair loss, heat intolerance or cold intolerance Breast Breast: Yes left breast lump, abnormal mammogram and abnormal US; No right breast lump, nipple discharge, breast pain or breast enlargement Musc Musculoskeletal: Yes arthritis; No back problems, rheumatoid arthritis, gout or joint pain Cardio Cardiovascular: Yes high blood pressure; No murmur, pacemaker, heart disease, atrial fibrillation, heart attack, heart stent, palpitations, shortness of breat with exertion or chest pain Psych Psychiatric: No depression, anxiety or hearing voices Resp Respiratory: No shortness of breath, No sleep apnea, No cough, No COPD, No asthma, No emphysema and No wheezing Gastro Gastrointestinal: No abdominal pain, No nausea or vomiting, No diarrhea, No constipation, No blood in stool, Yes acid reflux, No hemorrhoids, No ulcers, No gallbladder problem and No black,tarry stools Laurent Hematologic: No blood thinners, No blood disorders, No bleeding, No anemia and No blood clots Neuro Neurologic: No weakness Assessment and Plan Assessment and Plan (1) Breast cancer: Status: Acute Qualifiers: Breast location: lower inner quadrant of breast Estrogen receptor status: positive Patient sex: female Laterality: left Qualified Code(s): C50.312 - Malignant neoplasm of lower-inner quadrant of left female breast; Z17.0 - Estrogen receptor positive status [ER+] Plan - Dr. Espinoza Bhakta MD: Small lower inner left breast cancer invasive ductal carcinoma. Very close to the inframammary fold and chest wall. Ultrasound-guided biopsy was performed in the ultrasound department. Visualization was challenging. I do not believe that she would likely be a candidate to have a stereotactic wire loop. We will need to repeat a ultrasound-guided approach with ultrasound-guided wire localization. Even the marking clip that was the positive at this time the biopsy was difficult to see. I propose for the patient a in the department ultrasound-guided wire localization lower inner left breast. This would be combined with nuclear tracer and blue dye left axillary sentinel lymph node biopsy with wire localized lower inner left breast lumpectomy. I have discussed the technique, benefit, risk, alternatives. She has had an opportunity to ask and have questions answered. She is aware that I will then be recommending hematology oncology and radiation oncology referral. She has had an opportunity to ask and have questions answered she is very comfortable with this progress. She has been provided copies of her pathology as well as instructions regarding the surgical treatment of breast cancer. We will schedule and expedite her care Copy: Dr. Espinoza Bhakta M.D., F.A.C.S. I have re-examined the patient. There are no clinical changes since date of exam.
--- NOTE | 2021-02-10 09:15 | EX.PCM.DISCH ---
Discharge Instructions Procedure Breast Surgery Diet Discharge Diet: No restrictions Activity Discharge Activity: May Not Drive (for 2-3 days or while taking narcotic pain meds.) May shower in (days): 1 Lifting Restrictions: 10 pounds for 1 week. Dressing / Incision Call your doctor if your incision/area has: Continuous Slow Oozing and Sudden Increased Bleeding Call your doctor if you observe: Fever of 101 or Higher Suture Line Care: Avoid Pulling/Pushing and Avoid Pinching/Bending Remove Dressing in: 1 day Additional Dressing/Incision Instructions:: Remove bulky dressing tomorrow. May leave any opsite dressing for 3-4 days. Keep dressing in place until your follow-up appointment. Follow Up Care Test Results: Test results from this visit will be discussed in further detail at your follow-up appointment, if applicable. Discharge Plan Admission Attending Provider: Espinoza Bhakta Primary Care Provider: Espinoza Lora Discharge Orders/Prescriptions Prescriptions: No Action ibuprofen 600 mg tablet 600 mg PO 4X/DAY PRN (Reason: mild to moderate pain) RF: 0 pantoprazole 40 mg tablet,delayed release (DR/EC) 40 tablet PO QODAY RF: 0 calcium citrate-vitamin D3 315 mg-5 mcg (200 unit) tablet 1 tab PO DAILY RF: 0 amitriptyline 25 MG tablet 50 mg PO DAILY RF: 0 aspirin 81 MG tablet,chewable 81 mg PO DAILY@0800 RF: 0 pravastatin 40 mg Tablet 40 mg PO DAILY RF: 0 quinapril [Accupril] 40 mg Tablet 40 mg PO DAILY Qty: 0 RF: 0 Multiple Vitamin, Womens 1 EACH tablet 1 tab PO DAILY RF: 0 acetaminophen 325 MG tablet 650 mg PO Q4H PRN PRN (Reason: Pain) Qty: 0 RF: 0
--- NOTE | 2021-02-10 10:02 | US_ITS ---
PROCEDURE: Ultrasound Guided needle localization. CLINICAL HISTORY: Female, 65 years old. NEEDLE LOC LT BREAST BY CEBUL -- LT BREAST CA TECHNIQUE: Under direct sonographic guidance, the surgeon performed a needle localization of the 4.1 mm hypoechoic solid nodule at the 7 o''clock position of the breast. US/Needle Placement IMPRESSION: Successful ultrasound-guided needle localization. Electronically Signed: Nathaniel Lundy MD at 11:29 EDT , Service support ,
--- NOTE | 2021-02-10 10:17 | BI_ITS ---
SURGICAL BREAST SPECIMEN RADIOGRAPH CLINICAL: Document presence of tissue clip marker in biopsy specimen. FINDINGS: Specimen shows presence of tissue clip marker. Electronically Signed: Nathaniel Lundy MD at 12:28 EDT , Service support , BI/Breast Biopsy Specimen
--- NOTE | 2021-02-10 10:45 | OP.PCM_ITS ---
Problems Associated Problem List Diagnoses (1) Breast cancer: Report of Operation Date of Procedure: 02/10/21 Pre-Operative Diagnosis: Lower inner left breast invasive ductal carcinoma Post-Operative Diagnosis: Same Surgery/Procedure Performed:: Ultrasound wire localization lower inner left breast. Wire localized left breast lumpectomy. Left axillary blue dye and nuclear tracer sentinel lymph node biopsy Description of Surgical Findings:: Timeout informed consent was obtained. 65-year-old female was taken to the ultrasound suite. She was placed supine on the table. The left breast was copiously inspected. A very small lesion in the lower inner left breast was identified with effort. The breast was prepped with chlorhexidine. 1% lidocaine was used as a local anesthetic. A Kopan's needle was advanced under ultrasound guidance into the lesion. The wire was released. Sterile dressings applied. She tolerated the procedure well. She was subsequently taken to the operating for definitive removal. Timeout and again informed consent obtained. The patient underwent general anesthesia. The left arm was placed at right angles of the table with soft roll. The left breast and axilla were sterilely prepped and draped after 2 cc of isosulfan blue dye was injected retroareolarly. Subsequent left axillary sentinel lymph nodes were dissected free using combination of blue dye tracking and nuclear tracer technique. I made an oblique incision in the left axilla sharp and blunt dissection was used to identify the lymphatic channel line channel to a blue dyed lymph node and an adjacent normal color lymph node with sharp and electrocautery dissection completely remove the area and used hemoclips to secure lymphatic vessels. Additionally used a 3-0 Vicryl ligature at the base. This demonstrated significant mono nuclear tracer at over 100. I then inspected the cavity and I cannot visualize any residual nodes could not visualize any residual blue nodes could not detect any additional nodes with the Neomed probe. [place] that all of the interval sentinel lymph node tissue had been removed. This was based upon the dye tracking and nuclear tracer and direct visualization. I then made a slightly transverse incision lower inner left breast. Guided by the wire sharp and blunt dissection was used to completely excise the lesion. Hemostasis 10 electrocautery. 4 marking clips were placed at the 4 corners of the resection. Hemostasis was intact. Deep tissue approximated up to 3-0 Vicryl. Both wounds skin edges approximated running septic or 4 Monocryl. Steri-Strips Telfa OpSite bulky dry dressings applied. It is of note that both site was anesthetized with 0.5% Marcaine. A total of 30 cc was used. Sponge and instrument and needle counts were reported the surgeon to be correct. Blood loss was minimal. She tolerated the procedure well and was taken to the recovery room in satisfactory addition without apparent complication Specimen left axillary sentinel lymph nodes x2 reported as negative. Left breast lumpectomy. Drains none. Blood loss minimal Espinoza Bhakta M.D., F.A.C.S. Surgeon: Espinoza Bhakta Type of Anesthesia: General and Local Anesthesiologist: Rusty Kraus
[2021-02-10] MEDS: Isosulfan Blue 1% 5 ML Vial (11:15)
[2021-02-10] MEDS: Bupivacaine Mpf 0.5% 30 ML VIAL (11:20)
[2021-02-10] MEDS: HYDROcodone Bitartrate/Apap 5/325 Tablet PO (13:51)
== END 2021-02-10 15:28 | disposition home or self-care (01) ==
LOC: SDC 07:19 → AC 07:20
PROVIDERS: PCP Preventive Medicine Occupational Medicine; Referring Provider Surgery; Visit Provider Surgery
PROC: (CPT 19301; principal; 2021-02-10 10:45)
DX: C50.312 Malignant neoplasm of lower-inner quadrant of left female breast (principal); Z17.0 Estrogen receptor positive status [ER+]; R59.0 Localized enlarged lymph nodes; K21.9 Gastro-esophageal reflux disease without esophagitis; M19.90 Unspecified osteoarthritis, unspecified site; E78.00 Pure hypercholesterolemia, unspecified; G25.81 Restless legs syndrome; Z78.0 Asymptomatic menopausal state; Z87.19 Personal history of other diseases of the digestive system; Z79.82 Long term (current) use of aspirin; Z79.899 Other long term (current) drug therapy; Z87.891 Personal history of nicotine dependence
CPT/HCPCS: 00400; 19301; 38500; 38792; 71046; 76098; 76942; 80053; 85027; 88305; 88307; 88331; 88332; 88341; 88342; 93005; A9541; J7120; J2405; Q9968

== ENCOUNTER → 2021-03-09 09:49 | Outpatient (CLI) | payer MEDICARE, OTHER, SELFPAY ==
--- NOTE | 2021-03-09 09:56 | BD_ITS ---
STUDY: DUAL ENERGY X-RAY ABSORPTIOMETRY / DXA REASON FOR EXAM: Female, 65 years old. POST MENOPAUSE PRE AI THERAPY TECHNIQUE: Bone Mineral Density (BMD) measurements of lumbar spine and bilateral hips were obtained. COMPARISON: Comparison is made with prior examination dated 09/02/2009. FINDINGS: Lumbar Spine (L1-L4): g/cm2 (0.882) / T-score (-1.5) / Z-score (0.4) Findings are suggestive of osteopenia with a low fracture risk. Left Femur Total: g/cm2 (0.751) / T-score (-1.6) / Z-score (-0.2) Left Femoral Neck: g/cm2 (0.688) / T-score (-1.5) / Z-score (0.2) Right Femur Total: g/cm2 (0.792) / T-score (-1.2) / Z-score (0.1) Right Femoral Neck: g/cm2 (0.673) / T-score (-1.6) / Z-score (0.1) The T-Scores on the most recent prior examination were: Lumbar Spine (L1-L4): There has been worsening of bone density since the previous examination. Left Femur Total: which represents a worsening of 9.7%. Right Femur Total: which represents a worsening of 6.1%. BD/Dexa Bone Density Study IMPRESSION: The patient is considered osteopenic as outlined below according to World Brian Organization (WHO) criteria with a moderate fracture risk. There has been worsening of bone density since the previous examination. Reference Information: The T-score is the number of standard deviations above or below the standard which is normal for young adults at their peak bone mineral density. The World Health Organization (WHO) interprets the T-scores as follows: Above -1 Normal bone density Between -1 and -2.5 Osteopenia Equal to / or below -2.5 Osteoporosis As a practical clinical guideline, osteopenia may be graded as follows: Mild -1 through -1.5 Moderate -1.6 through -2.0 Severe -2.1 through -2.4 The Z-score is the number of standard deviations above or below age-matched controls. A Z-score of less than -1.5 would be considered abnormal. References: 1. NIH Osteoporosis and Related Bone Diseases www osteo.org 2. International Society for Clinical Densitometry www iscd.org 3. National Osteoporosis Foundation www nof.org Electronically Signed: Nathaniel Lundy MD at 13:37 EDT , Service support ,
== END ==
PROVIDERS: PCP Preventive Medicine Occupational Medicine; Visit Provider Internal Medicine Hematology & Oncology
DX: Z78.0 Asymptomatic menopausal state (principal)
CPT/HCPCS: 77080

== ENCOUNTER 2021-03-29 12:20 | Outpatient (RCR) | payer MEDICARE, OTHER, SELFPAY ==
--- NOTE | 2021-03-29 14:23 | HP.OTEVAL ---
Patient's Visit Information KANIKA LOVELL is a 65 year old F, referred to Occupational Therapy by Nara Egan PA-C, with a diagnosis of left UE lymphedema. Date of Evaluation: 03/29/21 Occupational Therapist: Jodi Richter, CASSIA/[place], CHT - Subjective This 65 year old female was seen for OT with dx of left UE lymphedema- pt had lumpectomy with 2 lymph node removal on 2020. pt states she is going through radiation 11/18. Pt states she noticed a pulling sensation in her forearm when she tries to lift her arm up over her head. pt is retired. pt would like to limit her pain with ROM and the sensitivity under her arm. - Pain left UE 4 Pain Intensity Range: 5 - ROM Shoulder: left flex & abduction 170 flex 135 abduction 105 right Elbow: Left/right WNL Forearm: left/right WNL ROM Comments: pt demo with limited left shoulder ROM - Strength Shoulder: right 4+/5 left 4+/5 Cartographic Engineer: left 60# left 55# Strength Comments: pt demo good strength - Lymphedema (Circumferential Measure) MCP: left 19cm right 19cm Wrist: left 15cm right 15cm Lower forearm: left 17cm right 17cm Largest forearm: left 23cm right 24cm Elbow: left 26cm right 25cm Largest humerus: left 26cm right 26cm Axcillary: left 31cm right 33cm - Sensation Sensation Comments: denies - Quick DASH-Disab of Arm,Shoulder& Hand Quick DASH Score: 42.5000 - Goals Goal:: pt will demo a increase in left shoulder flexion/abduction by 30* or greater to increase pts ind. with ADLs and IADLs by d/c Goal:: pt will report no pain greater than 1/10 with use of left UE with ADLs and IADLs by d/c Goal:: pt will report increase tolerance of touch to axillary and scar regions by d/c Goal:: pt will demo understanding of lifetime mtg of lymphedema and precautions by end of 2nd visit. - Rehabilitation General Assessment: pt demo with limited left UE ROM and axillary webbing as a result of her lumpectomy and radiation- pt would benefit from skilled OT services 3- 6 visits to decrease scar adhesions and improve pts ROM to return to her PLOF. pt has radiation and other apts so she will return in 2-3 weeks but reports she will work on her ROM with the HEP. Today therapist ed. pt on her ROM and scar mtg- pt demo understanding and agreed to POC. Rehabilitation Potential: Good - Anticipated Interventions A/AAROM/PROM, Scar Care, Triggerpoint Release, Education re Diagnosis, Education re Life-long lymphedema Management, Education re Skin Care and Precautions, Education re Self Massage Techniques, Education re Correct Donning Tech,Care&Wearing Sched Comp Garments, Home Program - Visit Plan Frequency: 1x/Week Duration: 4 Weeks General Plan: pt demo with left axillary webbing- therapy will initiate AAROM to increase left shoulder ROM and decrease webbing TEXT: Thank you for the opportunity to evaluate your patient. For Medicare and Medicare HMO plans, please review the plan of care and approve it. It will need to be FAXED BACK to us at [phone] for Medicare purposes. Please let me know if there are questions or concerns regarding this plan of care. Physician Signature: Date:
--- NOTE | 2021-07-08 09:47 | HP.OTDCNRP_ITS ---
KANIKA LOVELL was seen in my office for initial evaluation on 03/29/21. The following Plan of Care was established for this patient: Initial Frequency: 1x/Week Initial Duration: 4 Weeks Anticipated Interventions: A/AAROM/PROM, Scar Care, Triggerpoint Release, Education re Diagnosis, Education re Life-long lymphedema Management, Education re Skin Care and Precautions, Education re Self Massage Techniques, Education re Correct Donning Tech,Care&Wearing Sched Comp Garments, Home Program This patient was last seen in our office 04/08/21. Pertinent comments regarding their Occupational therapy will appear below: pt was seen for 1 OT session-no further apts were scheduled and due to time laps in services pt d/c. At this point I will be discontinuing this patient from occupational therapy. I would be happy to see this patient again in the future if found appropriate by t [facility] physician. Thank you! Jodi Richtre, OTR/L, CHT
== END 2021-03-29 19:00 | disposition home or self-care (01) ==
LOC: OT 12:20
PROVIDERS: PCP Preventive Medicine Occupational Medicine; Referring Provider Physician Assistant; Visit Provider Physician Assistant
DX: I89.0 Lymphedema, not elsewhere classified (principal)
CPT/HCPCS: 97110; 97166

== ENCOUNTER 2021-07-27 05:17 | Day surgery (SDC) | payer MEDICARE, OTHER, SELFPAY ==
[2021-07-27] VITALS (13 sets, daily range): BP systolic 71–116; BP diastolic 41–96; PULSE 73–87; RESP 16; TEMP 36.6–37; O2SAT 93–98; BMI 27.8
[2021-07-27] MEDS: Lactated Ringers 1,000 ML 15 ML IV (05:54)
--- NOTE | 2021-07-27 06:24 | PCM.HP.STD ---
HPI - General HPI Narrative KANIKA LOVELL, is a 65 F who presents via open access for colonoscopy. She has a personal history of colon polyps. She has 2 brothers who had colon cancer. On upon arrival she is mildly hypotensive from the bowel prep and is receiving additional IV fluid. She notes hemorrhoid problems with occasional bright red blood per rectum on the tissue. No abdominal pain. She has not had COVID-19. She has been vaccinated. She denies any acute medical problems. FORMERLY [facility] Medical History (Updated 07/27/21 @ 06:[address] Espinoza Bhakta MD) Arthritis Breast cancer of lower-outer quadrant of left female breast Cancer Chest pain Former smoker GERD (gastroesophageal reflux disease) High cholesterol History of diverticulitis Injury of head and neck Lymphedema Osteoarthritis Osteopenia Restless legs Wears contact lenses Home Medications amitriptyline 50 mg PO DAILY 11/17/13 [History Last Taken 05/01/18] aspirin 81 mg PO DAILY@0800 03/23/14 [History Last Taken 04/25/18] Multiple Vitamin, Womens 1 tab PO DAILY 10/17/16 [History Last Taken Unknown] pravastatin 40 mg PO DAILY 10/17/16 [History Last Taken Unknown] quinapril [Accupril] 40 mg PO DAILY #0 tablet 10/17/16 [History Last Taken 07/27/21 03:30] acetaminophen 650 mg PO Q4H PRN PRN #0 tab 10/19/16 [Rx Last Taken Unknown] calcium citrate 315 mg-vitamin D3 5 mcg (200 unit) tablet 1 tab PO DAILY 01/19/21 [History Last Taken Unknown] ibuprofen 600 mg tablet 600 mg PO 4X/DAY PRN tab 01/19/21 [History Last Taken Unknown] pantoprazole 40 mg tablet,delayed release 40 tablet PO QODAY 01/19/21 [History Last Taken 02/10/21 06:30] anastrozole 1 mg tablet See Rx Instructions .ROUTE .COMPLEX #90 tab 07/05/21 [Rx Last Taken Unknown] Allergy/AdvReac Type Severity Reaction Status Date / Time dexlansoprazole AdvReac Mild gi upset Verified 07/23/21 11:41 [From Dexilant] Family History Father Heart disease Myocardial infarction Mother Diabetes Brother Diabetes Sister Diabetes Surgical History History of appendectomy History of bilateral carpal tunnel release History of breast biopsy (~01/2021) History of cervical discectomy History of colonoscopy History of hysterectomy History of lumpectomy of left breast (~02/2021) History of repair of rectocele History of thumb surgery Social History Smoking Status: Former smoker Tobacco: How many years used: 20 second hand exposure: No details: occasionally substance use type: does not use rocco/congregational: Faith seatbelt use: always do you feel safe at home: Yes ROS Constitutional Constitutional: Reports systems reviewed and no addt'l complaints, except as documented Cardiovascular Cardiovascular: Denies chest pain Respiratory/Chest Respiratory/Chest: Denies shortness of breath at rest Gastrointestinal Gastrointestinal: Denies abdominal pain, change in bowel habits, hematochezia or melena Vital Signs Vital Signs Vital Signs: 07/27/21 05:43 07/27/21 05:45 Temperature 97.9 F Temperature Source Temporal Pulse Rate 87 Respiratory Rate 16 Respiratory Pattern Normal Blood Pressure 78/53 L Blood Pressure Mean 61 Blood Pressure Source Monitor Blood Pressure Position Semi-Fowlers Blood Pressure Location Right Arm Pulse Ox 97 Oxygen Delivery Method Room Air Weight Weight: 167 lb 6.4 oz Body Mass Index (BMI) 27.8 Physical Exam Const alert, oriented x3 and no apparent distress General Appearance: cooperative and comfortable Eyes General Eye: normal appearance of both eyes Neck General: normal visual inspection Chest inspection of chest normal Resp Effort and Inspection: able to speak in complete sentences and symmetric chest movement Auscultation: clear to auscultation bilaterally Cardio regular rate and regular rhythm GI soft to palpation, non-tender and non-distended Extremity no calf tenderness Neuro oriented x3 Psych thought process normal Assessment & Plan Assessment/Plan (1) Personal history of colonic polyps: PLAN: The patient presents via open access today. I propose a colonoscopy with possible biopsy or polypectomy as indicated. She has had an opportunity to ask and have questions answered. Once her blood pressure stabilized we will proceed as indicated. Espinoza Bhakta M.D., F.A.C.S.
--- NOTE | 2021-07-27 06:30 | COLBX_PTH ---
PATIENT: KANIKA LOVELL LOC: EN U#:[id number] AGE/SX: 65/F ROOM: RE07/27/[address]: Dr. Espinoza Bhakta MD : 1955 BED: DIS: 07/27/2021 SPEC #: [id number] RECD: 07/27/21 11:17 STATUS: JUANA ROGERS #: [id number] ELLEN: 07/27/21 06:[address]: Espinoza Bhakta DEPT: SURGICAL PATHOLOGY RECD BY: Shivani Macedo ENTERED: 07/27/21 11:42 SP TYPE: COLON BX OTHR DR: Dr. Espinoza Lora DO Tissues: COLON BIOPSY Procedures: Surgery Specimen Level IV HEADER OPERATION: Colonoscopy ? open access (MOD) with biopsy polypectomy PRE-OP DIAGNOSIS: History of colonic polyps TISSUE SUBMITTED: Hepatic flexure polyp biopsy MICROSCOPIC DIAGNOSIS Colonic polyp at hepatic flexure, biopsy: Polypoid fragment of benign colonic mucosa. See comment. AM:rg 07/28/2021 COMMENT Neither hyperplastic nor adenomatous change is identified. Clinical correlation is suggested. MICROSCOPIC DESCRIPTION Slides are reviewed. GROSS DESCRIPTION Received in fixative is one container labeled with the patient's name and designated hepatic flexure polyp. The specimen consists of one irregular fragment of light ayala soft tissue that measures 0.4 x 0.3 x 0.1 cm. The specimen is totally submitted in one cassette. / SJ:gregoria 07/27/2021 TC:5 CPT: 01133
[2021-07-27] MEDS: Midazolam 5 MG/ML Syringe (06:40)
--- NOTE | 2021-07-27 07:15 | OP.COLON_ITS ---
Patient Name: Lauren Carroll Procedure Date: 07/27/2021 6:30 AM Date of : 1955 Age: 65 Procedure: Colonoscopy Indications: High risk colon cancer surveillance: Personal history of colonic polyps, Family history of colon cancer in a first-degree relative Providers: Espinoza Bhakta MD Referring MD: Espinoza Lora Medicines: Midazolam 3.5 mg IV, Meperidine 100 mg IV Patient Profile: Last Colonoscopy: 5 years ago. Complications: No immediate complications. Procedure: Pre-Anesthesia Assessment: - Prior to the procedure, a History and Physical was performed, and patient medications and allergies were reviewed. The patient's tolerance of previous anesthesia was also reviewed. The risks and benefits of the procedure and the sedation options and risks were discussed with the patient. All questions were answered, and informed consent was obtained. Prior Anticoagulants: The patient has taken aspirin, last dose was 1 day prior to procedure. ASA Grade Assessment: II - A patient with mild systemic disease. After reviewing the risks and benefits, the patient was deemed in satisfactory condition to undergo the procedure. After I obtained informed consent, the scope was passed under direct vision. Throughout the procedure, the patient's blood pressure, pulse, and oxygen saturations were monitored continuously. The pediatric colonoscope was introduced through the anus and advanced to the cecum, identified by appendiceal orifice and ileocecal valve. The colonoscopy was somewhat difficult due to a tortuous colon. The patient tolerated the procedure well. The quality of the bowel preparation was fair. Moderate Sedation: Moderate (conscious) sedation was personally administered by the endoscopist. The following parameters were monitored: oxygen saturation, heart rate, blood pressure, and response to care. Total physician intraservice time was 15 minutes. Scope In: 6:43:37 AM Scope Withdrawal Time 0 hours 9 minutes 24 seconds Scope Out: 7:08:28 AM Total Procedure Duration Time 0 hours 24 minutes 51 seconds Findings: The digital rectal exam findings include non-thrombosed external hemorrhoids, non-thrombosed internal hemorrhoids and internal hemorrhoids that prolapse with straining, but require manual replacement into the anal canal (Grade III). A 6 mm polyp was found in the hepatic flexure. The polyp was sessile. The polyp was removed with a cold biopsy forceps. Resection and retrieval were complete. Multiple diverticula were found in the sigmoid colon and descending colon. Impression: - Preparation of the colon was fair. - Non-thrombosed external hemorrhoids, non-thrombosed internal hemorrhoids and internal hemorrhoids that prolapse with straining, but require manual replacement into the anal canal (Grade III) found on digital rectal exam. - One 6 mm polyp at the hepatic flexure, removed with a cold biopsy forceps. Resected and retrieved. - Diverticulosis in the sigmoid colon and in the descending colon. Recommendation: - Discharge patient to home. - Resume previous diet. - Continue present medications. - Repeat colonoscopy in 5 years for surveillance based on pathology results. - Telephone my office for pathology results in 1 week. Procedure Code(s): --- Professional --- 55430, Colonoscopy, flexible; with biopsy, single or multiple 48252, 59, Moderate sedation services provided by the same physician or other qualified health health care coordinator performing the diagnostic or therapeutic service that the sedation supports, requiring the presence of an independent trained observer to assist in the monitoring of the patient's level of consciousness and physiological status; initial 15 minutes of intraservice time, patient age 5 years or older Diagnosis Code(s): --- Professional --- Z86.010, Personal history of colonic polyps K64.2, Third degree hemorrhoids K64.4, Residual hemorrhoidal skin tags D12.3, Benign neoplasm of transverse colon (hepatic flexure or splenic flexure) Z80.0, Family history of malignant neoplasm of digestive organs K57.30, Diverticulosis of large intestine without perforation or abscess without bleeding CPT copyright 2017 [employer]. All rights reserved. The codes documented in this report are preliminary and upon clinical coder review may be revised to meet current compliance requirements. Espinoza Bhakta MD 07/27/2021 7:14:55 AM This report has been signed electronically. Number of Addenda: 0 Note Initiated On: 07/27/2021 6:30 AM
--- NOTE | 2021-07-27 07:16 | OP.CCLET_ITS ---
07/27/2021 Espinoza Lora [address] [place] [address] Re : Colonoscopy procedure for Lauren Carroll Dear Dr. Lora This procedure was performed on Tuesday, July 27, 2021. My impressions and recommendations are as follows: Impressions : - Preparation of the colon was fair. - Non-thrombosed external hemorrhoids, non-thrombosed internal hemorrhoids and internal hemorrhoids that prolapse with straining, but require manual replacement into the anal canal (Grade III) found on digital rectal exam. - One 6 mm polyp at the hepatic flexure, removed with a cold biopsy forceps. Resected and retrieved. - Diverticulosis in the sigmoid colon and in the descending colon. Recommendations : - Discharge patient to home. - Resume previous diet. - Continue present medications. - Repeat colonoscopy in 5 years for surveillance based on pathology results. - Telephone my office for pathology results in 1 week. My findings are described in the full procedure note, which is enclosed. If I can be of further assistance, please feel free to contact me at Doctor phone number(s): Work: . Sincerely, Espinoza Bhatka MD 07/27/2021 7:14:55 AM This report has been signed electronically.
== END 2021-07-27 23:59 | disposition home or self-care (01) ==
LOC: EN 05:17 → AC 05:18
PROVIDERS: PCP Preventive Medicine Occupational Medicine; Referring Provider Preventive Medicine Occupational Medicine; Visit Provider Surgery
PROC: 0DJD8ZZ Inspection of Lower Intestinal Tract, Via Natural or Artificial Opening Endoscopic (ICD-10-PCS; CPT 45378; principal; 2021-07-27 06:25)
DX: K63.5 Polyp of colon (principal); Z86.010 Personal history of colon polyps; K64.2 Third degree hemorrhoids; K64.4 Residual hemorrhoidal skin tags; Z80.0 Family history of malignant neoplasm of digestive organs; K57.30 Diverticulosis of large intestine without perforation or abscess without bleeding; Z85.3 Personal history of malignant neoplasm of breast; M19.90 Unspecified osteoarthritis, unspecified site; K21.9 Gastro-esophageal reflux disease without esophagitis; E78.00 Pure hypercholesterolemia, unspecified; Z87.19 Personal history of other diseases of the digestive system; G25.81 Restless legs syndrome; Z79.82 Long term (current) use of aspirin; Z79.899 Other long term (current) drug therapy
CPT/HCPCS: 45380; 88305; 99152; 99153; J7040; J7120

== ENCOUNTER 2021-09-16 07:23 | Outpatient (RCR) | payer MEDICARE, OTHER, SELFPAY ==
--- NOTE | 2021-09-16 08:39 | HP.OTEVAL ---
Patient's Visit Information KANIKA LOVELL is a 65 year old F, referred to Occupational Therapy by Dr. Mahesh Putnam DO, with a diagnosis of s/p lumpectlmy increased edema. Date of Evaluation: 09/16/21 Occupational Therapist: Jodi Richter, SENIAR/Rose [place], CHT - Subjective pt states she under went lumpectomy 02/2021 and states she has noticed a change in her left breast since- pt states the breast is larger DD size compared to her right breast at a D. pt states she feels her breast tissue is harder and because of the size it makes her very uncomfortable in public, and difficulty to find affordable bras or compression garments. pt has been seen in this department prior and ed. on lymphedema precautions and exercise to increase ROM of left UE. Pt reports no issues with limited ROM at this time and denies left UE edema- pt states she has made up her mind to have breast augmentation sx performed to reduce the size of her breast- - Goals Demonstrate a 20% reduction in edema by d/c: Yes Demonstrate adequate knowledge of self-massage by 2nd week: Yes Demonstrate adequate knowledge skin care/prec by 2nd week: Yes Demonstrate adequate knowledge therapeutic exercises by d/c: Yes Select approp compression garment w/donning/care/wear by d/c: Yes Voice need to replace compression garment every 4-6mo by dc: Yes - Rehabilitation General Assessment: Pt demo increase in left breast size- pt has tried use of supportive camisoles as she can not find bra to fit well with different cup sizes- therapist ed. pt she could initiate her ROM and self lymph massage to her left and right chest wall/axillary and sub clavicular vain region- pt demo understanding. therapist ed. pt on beneficial exercises to stimulate fluid motion like swimming- pt demo understanding- therapist ed. pt on different compression bras to use to assist in support of left breast- pt was not receptive states pulls her breast up to much and makes her breast sizes more apparent- and she suffers from hot flashes and feels she will be to hot in something more supportive. pt has decided to haver her breast reduced surgically. Therapist review with pt until she has sx to provide support and protection-, skin care and to perform her manual lymph massage- pt demo understanding and agree to HEP. Rehabilitation Potential: Good - Anticipated Interventions Education re Diagnosis, Manual Lymph Drainage, Education re Life-long lymphedema Management, Education re Skin Care and Precautions, Education re Self Massage Techniques, Education re Correct Donning Tech,Care&Wearing Sched Comp Garments, Home Program - Visit Plan TEXT: Thank you for the opportunity to evaluate your patient. For Medicare and Medicare HMO plans, please review the plan of care and approve it. It will need to be FAXED BACK to us at [phone] for Medicare purposes. Please let me know if there are questions or concerns regarding this plan of care. Physician Signature: Date:
--- NOTE | 2022-03-08 13:12 | HP.OT.NRP ---
KANIKA LOVELL was seen in my office for initial evaluation on 09/16/21. The following Plan of Care was established for this patient: Anticipated Interventions: Education re Diagnosis, Manual Lymph Drainage, Education re Life-long lymphedema Management, Education re Skin Care and Precautions, Education re Self Massage Techniques, Education re Correct Donning Tech,Care&Wearing Sched Comp Garments, Home Program This patient was last seen in our office 09/16/21. Pertinent comments regarding their Occupational therapy will appear below: pt was seen for initial eval only- pt d/c due to time lapse in services. At this point I will be discontinuing this patient from occupational therapy. I would be happy to see this patient again in the future if found appropriate by the physician. Thank you! Jodi Richter, OTR/L, CHT
== END 2021-09-16 19:00 | disposition home or self-care (01) ==
LOC: OT 07:23
PROVIDERS: PCP Preventive Medicine Occupational Medicine; Referring Provider Student in an Organized Health Care Education/Training Program; Visit Provider Student in an Organized Health Care Education/Training Program
DX: N64.89 Other specified disorders of breast (principal)
CPT/HCPCS: 97166

== ENCOUNTER → 2021-09-27 | Outpatient (CLI) | payer MEDICARE, OTHER, SELFPAY ==
--- NOTE | 2021-09-27 15:05 | RAD_ITS ---
STUDY: X-RAY CHEST REASON FOR EXAM: Female, 65 years old. Ex smoker. Dyspnea. TECHNIQUE: Frontal and lateral views of the chest. COMPARISON: 02/10/2021. FINDINGS: The lungs are clear and expanded. Stable scattered healed parenchymal granulomatous calcifications. There is no demonstrated pleural abnormality. Normal size heart. Normal mediastinum and dax. Normal visualized pulmonary arteries. Aortic tortuosity with calcification unchanged. Normal visualized thoracic spine. Normal visualized ribs, clavicles, and shoulders. There is no demonstrated abnormality of the visualized soft tissue structures of the upper abdomen. RAD/Chest PA and Lateral IMPRESSION: Stable chest with no acute or active cardiopulmonary disease. Electronically Signed: Mehdi Perla MD at 9:27 EDT ,
== END | disposition home or self-care (01) ==
LOC: RAD 15:03
PROVIDERS: PCP Preventive Medicine Occupational Medicine; Referring Provider Internal Medicine Hematology & Oncology; Visit Provider Internal Medicine Hematology & Oncology
DX: R06.00 Dyspnea, unspecified (principal)
CPT/HCPCS: 71046

== ENCOUNTER 2021-12-31 13:17 | Outpatient (CLI) | payer MEDICARE, OTHER, SELFPAY ==
--- NOTE | 2021-12-31 13:19 | BI_ITS ---
MAMMOGRAPHY - BILATERAL DIAGNOSTIC REASON FOR EXAM: Female, 66 years old. 2 week history of left upper outer quadrant pain. PERTINENT HISTORY: Personal history of breast cancer. Prior left lumpectomy. TECHNIQUE: Digital bilateral breast girish (3D mammographic acquisition) in the CC and MLO projections. 2-D mediolateral oblique (MLO) and craniocaudad (CC) views of both breasts were obtained. 90 degree lateral and craniocaudad view of the left breast were obtained as well. CAD: Full Field Digital Mammography with Computer Added Detection was performed. COMPARISON: Comparison is made with prior examination 07/10/2020 and 01/07/2021. FINDINGS: Breast Composition: The breasts are heterogeneously dense, which may obscure small masses. The patient is status post lumpectomy in the inferior medial aspect of the left breast with resection of the previously seen nodule. Surgical clips are seen in the left axillary region. No other significant abnormalities are identified. BI/DIAG MAMM W/CAD, BILAT IMPRESSION: Status post lumpectomy in the inferior medial deep aspect of the left breast. Surgical clips are seen in the left axillary region. With the patient''s history of pain in the upper-outer quadrant in the left breast, correlation with ultrasound recommended. ASSESSMENT CATEGORY: BIRADS Category 0: Incomplete. Need additional imaging evaluation. A letter regarding these results will be sent to the patient by the facility within 30 days. Approximately 10% of breast cancers are not detected by mammography. A normal mammogram should not delay biopsy of a clinically suspicious abnormality. Electronically Signed: Nathaniel Lundy MD at 14:32 EDT ,
--- NOTE | 2021-12-31 14:01 | US_ITS ---
STUDY: ULTRASOUND BREAST - LEFT REASON FOR EXAM: Female, 66 years old. 2 weeks of left upper outer quadrant breast pain. History of left lumpectomy. TECHNIQUE: Axial and longitudinal images of the LEFT breast were performed with a high resolution ultrasound transducer. # OF IMAGES: 50 COMPARISON: Diagnostic bilateral mammogram dated 12/31/2021. FINDINGS: LEFT Breast: At the 2 o''clock position 2 cm from the nipple in the area of pain, there is a lobulated, clustered and septated lesion with anechoic and hypoechoic structures. Dilated ducts are adjacent to this. No aggressive features are present. This most likely represents the sequelae of a seroma. Given that the patient has pain, a 6 month follow-up left diagnostic mammogram and repeat left breast ultrasound is recommended. US/Breast Limited Unilateral IMPRESSION: Clustered and septated lesion with anechoic and hypoechoic structures most likely representing the sequelae of a seroma. No aggressive or suspicious lesions. A six-month follow-up left diagnostic mammogram and repeat left breast ultrasound is recommended. ASSESSMENT CATEGORY: BIRADS Category 3: Probably Benign - Short-Interval Follow-up Suggested. A letter regarding these results will be sent to the patient by the facility within 30 days. Electronically Signed: Mehdi Perla MD at 11:06 EDT ,
== END 2021-12-31 23:59 | disposition home or self-care (01) ==
LOC: OPBI 13:18
PROVIDERS: PCP Preventive Medicine Occupational Medicine; Visit Provider Internal Medicine Hematology & Oncology
DX: N64.4 Mastodynia (principal)
CPT/HCPCS: 76642; 77062; 77066; G0279

== ENCOUNTER 2022-02-15 18:59 | Emergency (ER) | payer MEDICARE, OTHER, SELFPAY ==
[2022-02-15 19:00] VITALS: BP 159/96; PULSE 112; RESP 18; TEMP 36.1; O2SAT 96; BMI 28.0
--- NOTE | 2022-02-15 20:41 | EDS_ITS ---
HPI History of Present Illness Chief Complaint: Laceration Informant: patient Narrative Narrative: [id number]-[id number] female presents laceration to distal forearm at 6:30 PM. Putting with Saran wrap when the blade actually hit her forearm. Bleeding controlled. She takes baby aspirin. No loss of function no paresthesias states burning around the wound. Tetanus 2 years ago. PFSH PFS Medical History Arthritis Breast cancer of lower-outer quadrant of left female breast Cancer Chest pain Former smoker GERD (gastroesophageal reflux disease) High cholesterol History of diverticulitis Injury of head and neck Lymphedema Osteoarthritis Osteopenia Restless legs Wears contact lenses Home Medications amitriptyline 25 mg tablet 50 mg PO DAILY 11/17/13 [History Last Taken 05/01/18] aspirin 81 mg chewable tablet 81 mg PO DAILY@0800 03/23/14 [History Last Taken 04/25/18] slomvbqcxogj-Lc-mvix-minerals (Multiple Vitamin, Womens tablet) 1 tab PO DAILY 10/17/16 [History Last Taken Unknown] quinapril 40 mg tablet (Accupril) 40 mg PO DAILY #0 TABLETS 10/17/16 [History Last Taken 07/27/21 03:30] acetaminophen 325 mg tablet 650 mg PO Q4H PRN PRN Pain #0 tabs 10/19/16 [Rx Last Taken Unknown] calcium citrate 315 mg-vitamin D3 5 mcg (200 unit) tablet 1 tab PO DAILY 01/19/21 [History Last Taken Unknown] ibuprofen 600 mg tablet 600 mg PO 4X/DAY PRN mild to moderate pain 01/19/21 [History Last Taken Unknown] pantoprazole 40 mg tablet,delayed release 40 tablet PO QODAY 01/19/21 [History Last Taken 02/10/21 06:30] anastrozole 1 mg tablet See Rx Instructions .Route .COMPLEX #90 tabs 07/05/21 [Rx Last Taken Unknown] amoxicillin 500 mg capsule 500 mg PO TID 09/27/21 [History Last Taken Unknown] pravastatin 40 mg tablet 80 mg PO DAILY 09/27/21 [History Last Taken Unknown] Allergy/AdvReac Type Severity Reaction Status Date / Time dexlansoprazole AdvReac Mild gi upset Verified 02/15/22 19:01 [From Dexilant] Family History Father Heart disease Myocardial infarction Mother Diabetes Brother Diabetes Sister Diabetes Surgical History History of appendectomy History of bilateral carpal tunnel release History of breast biopsy (~01/2021) History of cervical discectomy History of colonoscopy History of hysterectomy History of lumpectomy of left breast (~02/2021) History of repair of rectocele History of thumb surgery Social History Smoking Status: Former smoker Tobacco: How many years used: 20 second hand exposure: No details: occasionally substance use type: does not use rocco/buddhist: Congregational seatbelt use: always do you feel safe at home: Yes ROS ROS ED Constitutional Constitutional ED: Denies chills, fever(s) or sweats Eyes Eyes: Denies change in vision ENT ENT ED: Denies dysphagia or sore throat Cardiovascular Cardiovascular: Denies chest pain, leg edema, palpitations or racing heartbeat Respiratory/Chest Respiratory/Chest: Denies cough, dyspnea or dyspnea on exertion Gastrointestinal Gastrointestinal: Denies abdominal pain, diarrhea, nausea or vomiting Genitourinary Genitourinary ED: Denies dysuria, hematuria or urinary frequency Musculoskeletal Musculoskeletal: Denies back pain, extremity pain or neck pain Integumentary Reports wounds and other Details: Right forearm laceration ; Denies rash Neurologic Neurologic: Denies headache(s), paresthesias or weakness EXAM Physical Exam Const Vital Signs: 02/15/22 19:00 Temperature 97 F L Temperature Source Temporal Pulse Rate 112 H Respiratory Rate 18 Blood Pressure 159/96 H Blood Pressure Mean 117 Pulse Ox 96 Oxygen Delivery Method Room Air Positive well nourished and well developed General Appearance ED: well developed and NAD HEENT Reports moist mucous membranes normocephalic and atraumatic Eyes PERRL, EOMs intact bilaterally and conjunctivae normal General Eye ED: Yes normal appearance of both eyes Neck no lymphadenopathy and supple General: Negative for tenderness Chest Wall Chest: Negative for tenderness Resp normal respiratory effort and normal air movement Effort and Inspection: symmetric chest movement; Negative for respiratory distress Cardio regular rate, regular rhythm and no murmurs Peripheral Pulses: pulses 2+ throughout GI normal to inspection, nondistended, normoactive bowel sounds and non-tender Palpation: Negative for guarding or rebound tenderness present Back/Spine no CVA tenderness and no thoracic nor lumbar tenderness Extremity normal to inspection General Extremety ED: Negative for edema or tenderness General Extremity: Negative for edema Neuro oriented x3 and no sensory deficits noted Sensorium / Orientation: awake and alert Skin Skin Narrative: Right forearm volar aspect horizontal laceration distal forearm 4 cm slight subcu exposure there is no tendon exposure. No active bleeding. A distal small abrasion at the wrists. There is no laceration or bleeding. MDM MDM MDM Narrative Medical decision making narrative: Accidental laceration forearm. Denies self injury. This was repaired with no complications. Wound care discussed. Follow-up with PCP for suture removal. Procedure note: Verbal consent. Normal sterile conditions. 3 cc 1% lidocaine used for local analgesia. Copiously cleansed with normal saline. Total 4, 4-0 nylon sutures simple interrupted placed with good approximation. Patient Toller procedure well. Dressing by nursing. Discharge Plan Triage Chief Complaint: Laceration ED Provider: Anthony Breaux Dx/Rx/DC Orders Clinical Impression: Laceration of right wrist, Injury of right wrist, Breast cancer, left breast Instructions: ED Laceration: All Closures Prescriptions: No Action ibuprofen 600 mg tablet 600 mg PO 4X/DAY PRN (Reason: mild to moderate pain) pantoprazole 40 mg tablet,delayed release (DR/EC) 40 tablet PO QODAY calcium citrate-vitamin D3 315 mg-5 mcg (200 unit) tablet 1 tab PO DAILY amoxicillin 500 mg capsule 500 mg PO TID amitriptyline 25 MG tablet 50 mg PO DAILY Label Comments: aspirin 81 MG tablet,chewable 81 mg PO DAILY@0800 quinapril [Accupril] 40 mg Tablet 40 mg PO DAILY Qty: 0 Multiple Vitamin, Womens 1 EACH tablet 1 tab PO DAILY acetaminophen 325 MG tablet 650 mg PO Q4H PRN PRN (Reason: Pain) Qty: 0 0RF pravastatin 40 mg tablet 80 mg PO DAILY Label Comments: TAKE 1 TABLET BY MOUTH EVERY DAY anastrozole 1 mg tablet See Rx Instructions .ROUTE .COMPLEX Qty: 90 4RF Dose Instruction: TAKE 1 TABLET DAILY Rx Instructions: TAKE 1 TABLET DAILY Primary Care Provider: Espinoza Lora Referrals: Espinoza Lora DO [Primary Care Provider] - 10-14 Days suture removal Activity Restrictions/Additional Instructions: 4 sutures placed. Wound care as discussed. Follow-up with your doctor for suture removal. Disposition Disposition: Home, Self Care Discharge Date/Time: 02/15/22 21:12
[2022-02-15 21:05] VITALS: BP 152/78; PULSE 81; RESP 16; O2SAT 98
[2022-02-15] MEDS: Lidocaine 1% (20 ml mdv) 20 ML Vial INFILT (21:10)
[2022-02-15 21:12] VITALS: BP 148/75; PULSE 89; RESP 16; O2SAT 97
== END 2022-02-15 21:12 | disposition home or self-care (01) ==
PROVIDERS: Emergency Provider Emergency Medicine; PCP Preventive Medicine Occupational Medicine; Visit Provider Emergency Medicine
DX: S51.811A Laceration without foreign body of right forearm, initial encounter (principal); C50.912 Malignant neoplasm of unspecified site of left female breast; S60.811A Abrasion of right wrist, initial encounter; S60.812A Abrasion of left wrist, initial encounter; W26.8XXA Contact with other sharp object(s), not elsewhere classified, initial encounter; K21.9 Gastro-esophageal reflux disease without esophagitis; E78.00 Pure hypercholesterolemia, unspecified; Z87.19 Personal history of other diseases of the digestive system; G25.81 Restless legs syndrome; Z79.899 Other long term (current) drug therapy; Z79.82 Long term (current) use of aspirin; Z87.891 Personal history of nicotine dependence
CPT/HCPCS: 12002; 99283

== ENCOUNTER → 2022-06-14 | Outpatient (CLI) | payer MEDICARE, OTHER, SELFPAY ==
--- NOTE | 2022-06-14 09:26 | BI_ITS ---
MAMMOGRAPHY - BILATERAL DIAGNOSTIC REASON FOR EXAM: Female, 66 years old. Six-month follow-up for left breast abnormality. Prior left lumpectomy. Right breast lump. Recent bilateral breast reduction surgery. PERTINENT HISTORY: Personal history of breast cancer. TECHNIQUE: Digital bilateral breast girish (3D mammographic acquisition) in the CC and MLO projections. 2-D mediolateral oblique (MLO) and craniocaudad (CC) views of both breasts were obtained. CAD: Full Field Digital Mammography with Computer Added Detection was performed. COMPARISON: Comparison is made with prior study dated 12/31/2021 and 02/10/2021. FINDINGS: Breast Composition: The breasts are heterogeneously dense, which may obscure small masses. The patient is status post lumpectomy in the deep upper lateral portion of the left breast with resultant postoperative scarring. Surgical clips are seen in the left axillary region. The palpable abnormality corresponds to a new 2.5 cm x 3.8 cm heterogeneous nodule in the anterior upper outer aspect of the right breast. This is new since prior study. This most likely represents post breast reduction surgery. Correlation with ultrasound is recommended. No other significant abnormalities are identified. BI/DIAG MAMM W/CAD, BILAT IMPRESSION: Status post bilateral breast reduction surgery with new nodule in the upper outer anterior aspect of the right breast corresponds to the palpable abnormality. Correlation with ultrasound is recommended. ASSESSMENT CATEGORY: BIRADS Category 0: Incomplete. Need additional imaging evaluation. A letter regarding these results will be sent to the patient by the facility within 30 days. Approximately 10% of breast cancers are not detected by mammography. A normal mammogram should not delay biopsy of a clinically suspicious abnormality. Electronically Signed: Nathaniel Lundy MD at 12:46 EST ,
--- NOTE | 2022-06-14 10:16 | US_ITS ---
STUDY: ULTRASOUND BREAST - RIGHT REASON FOR EXAM: Female, 66 years old. Right breast lump. The patient is status post breast reduction surgery. TECHNIQUE: Axial and longitudinal images of the RIGHT breast were performed with a high resolution ultrasound transducer. # OF IMAGES: 116 COMPARISON: Comparison is made with prior mammogram done earlier in the day. FINDINGS: RIGHT Breast: The palpable abnormality and mammographic finding corresponds to a 3 cm x 2.7 cm x 1.5 cm heterogeneous solid nodule density with some posterior acoustical shadowing at the 9 o''clock position of the breast at 4 cm from the nipple. With the patient''s history of prior breast reduction surgery, this may represent an area of fat necrosis. A biopsy may be indicated. IMPRESSION: Status post bilateral breast reduction surgery with a 3 cm x 2.7 cm x 1.5 cm heterogeneous solid nodule at the 9 o''clock position of the breast at 4 cm from the nipple. This most likely represents postoperative fat necrosis. A biopsy may be indicated. ASSESSMENT CATEGORY: BIRADS Category 4: Suspicious - Biopsy Should Be Considered. A letter regarding these results will be sent to the patient by the facility within 30 days. Electronically Signed: Nathaniel Lundy MD at 16:18 EST , STUDY: ULTRASOUND BREAST - LEFT REASON FOR EXAM: Female, 66 years old. 6 month follow-up sonogram. TECHNIQUE: Axial and longitudinal images of the LEFT breast were performed with a high resolution ultrasound transducer. # OF IMAGES: 116 COMPARISON: Comparison is made with prior sonogram of the left breast dated 12/31/2021 and prior mammogram done earlier today. FINDINGS: LEFT Breast: At the 12 o''clock position of the breast at 2 cm from nipple, there is a 1.4 cm x 1.1cm x 1 cm irregular hypoechoic nodular density with posterior acoustical shadowing. Biopsy is recommended. US/Breast Limited Unilateral IMPRESSION: 1.4 cm x 1.1 cm x 1 cm irregular hypoechoic nodular density with posterior acoustical shadowing 12 o''clock position breast at 2 cm from the nipple. Biopsy is recommended. ASSESSMENT CATEGORY: BIRADS Category 4: Suspicious - Biopsy Should Be Considered. A letter regarding these results will be sent to the patient by the facility within 30 days. Electronically Signed: Nathaniel Lundy MD at 16:20 EST ,
== END | disposition home or self-care (01) ==
LOC: OPBI 09:23
PROVIDERS: PCP Preventive Medicine Occupational Medicine; Visit Provider Student in an Organized Health Care Education/Training Program
DX: C50.512 Malignant neoplasm of lower-outer quadrant of left female breast (principal); Z17.0 Estrogen receptor positive status [ER+]; N63.10 Unspecified lump in the right breast, unspecified quadrant
CPT/HCPCS: 76642; 77062; 77066; G0279

== ENCOUNTER → 2022-12-15 | Outpatient (CLI) | payer MEDICARE, OTHER, SELFPAY ==
--- NOTE | 2022-12-15 09:19 | US_ITS ---
STUDY: ULTRASOUND BREAST - RIGHT REASON FOR EXAM: Female, 67 years old. Palpable lump in the right breast. Six-month follow-up examination. TECHNIQUE: Axial and longitudinal images of the RIGHT breast were performed with a high resolution ultrasound transducer. # OF IMAGES: 27 COMPARISON: Comparison is made with prior mammogram done earlier in the day as well as prior sonogram of the right breast performed on June 14, 2022. FINDINGS: RIGHT Breast: Essentially stable 3.0 cm x 1.8 cm x 1.9 cm heterogeneous solid nodule with some posterior acoustical shadowing at the 9:00 position of the breast at 4 cm from the nipple. US/Breast Limited Unilateral IMPRESSION: Stable examination. ASSESSMENT CATEGORY: BIRADS Category 2: Benign. A letter regarding these results will be sent to the patient by the facility within 30 days. Electronically Signed: Nathaniel Lundy MD at 10:38 EDT ,
--- NOTE | 2022-12-15 09:19 | BI_ITS ---
MAMMOGRAPHY - UNILATERAL DIAGNOSTIC: RIGHT BREAST REASON FOR EXAM: Female, 67 years old. Right breast lump since prior breast reduction surgery. History of prior left lumpectomy. PERTINENT HISTORY: Personal history of breast cancer. TECHNIQUE: Digital unilateral breast girish (3D mammographic acquisition) in the CC and MLO projections. 2-D mediolateral oblique (MLO) and craniocaudad (CC) views of both breasts were obtained. CAD: Full Field Digital Mammography with Computer Added Detection was performed. COMPARISON: Comparison is made with prior study dated June 14, 2022. FINDINGS: Breast Composition: The breasts are heterogeneously dense, which may obscure small masses. Once again, there is evidence of a 2.5 cm x 3.8 cm heterogeneous nodule in the anterior upper aspect of the right breast. This corresponds to the palpable abnormality. Correlation with the targeted ultrasound is recommended. No other significant abnormalities are identified. There has been no significant change since the prior study. BI/DIAG MAMM W/CAD, UNILAT IMPRESSION: Stable unilateral diagnostic mammogram. Correlation with ultrasound is recommended. ASSESSMENT CATEGORY: BIRADS Category 0: Incomplete. Need additional imaging evaluation. A letter regarding these results will be sent to the patient by the facility within 30 days. Approximately 10% of breast cancers are not detected by mammography. A normal mammogram should not delay biopsy of a clinically suspicious abnormality. Electronically Signed: Nathaniel Lundy MD at 10:35 EDT ,
== END | disposition home or self-care (01) ==
PROVIDERS: PCP Preventive Medicine Occupational Medicine; Referring Provider Internal Medicine Hematology & Oncology; Visit Provider Internal Medicine Hematology & Oncology
DX: N63.11 Unspecified lump in the right breast, upper outer quadrant (principal)
CPT/HCPCS: 76642; 77061; 77065; G0279

== ENCOUNTER 2022-12-31 16:44 | Emergency (ER) | payer MEDICARE, OTHER, SELFPAY ==
[2022-12-31 16:44] VITALS: BP 140/79; PULSE 93; RESP 18; TEMP 36; O2SAT 97; BMI 27.2
--- NOTE | 2022-12-31 17:05 | EKG12_ITS ---
Test Reason : CP/SYNCOPE Blood Pressure : / mmHG Vent. Rate : 086 BPM Atrial Rate : 086 BPM P-R Int : 176 ms QRS Dur : 080 ms QT Int : 354 ms P-R-T Axes : 054 014 031 degrees QTc Int : 423 ms Normal sinus rhythm Normal ECG Confirmed by WILMER ROA, KEVIN ([id number]), associate editor PREET REYNOLDS ([id number]) on 01/05/2023 8:32:25 AM Referred By: ELVIN/SHELLEY Confirmed By:KAUSHAL GUILLEN MD
[2022-12-31 17:10] LABS: Bedside Glucose 113 mg/dL (74-106)
--- NOTE | 2022-12-31 17:12 | RAD_ITS ---
INDICATION: Chest pain EXAMINATION/TECHNIQUE: X-RAY - XR Chest 1 View COMPARISON: 09/27/2021 FINDINGS: LUNGS: No consolidation, edema or effusion. No pneumothorax. Mild left lung base atelectasis. MEDIASTINUM AND CARDIOVASCULAR STRUCTURES: Cardiac silhouette not enlarged. Central airways and mediastinal contour are unremarkable. RAD/Chest 1 View (Portable) IMPRESSION: Mild left lung base atelectasis. Electronically Signed: Francisco Doyle MD at 18:01 EDT ,
[2022-12-31 17:14] LABS: Absolute Lymphocyte Count 2.16 X10^3/uL (0.83-4.51); Absolute Neutrophil Count 4.4 X10^3/uL (2.0-7.7); Basophil# 0.06 X10^3/uL; Basophil% 0.8 % (0-1); Eosinophil# 0.11 X10^3/uL; Eosinophils% 1.5 % (0-5); Hematocrit 40.1 % (37-47); Hemoglobin 13.3 g/dL (12.0-15.0); Lymphocyte # 2.16 X10^3/ul (0.83-4.51); Mean Corp Hgb Conc 33.2 g/dL (32-36); Mean Corpuscular Hgb 28.2 pg (27.0-32.0); Mean Platelet Vol. 8.9 fl (6.2-12.0); Monocyte# 0.66 X10^3/uL; Monocyte% 8.9 % (0-10); NRBC Flagged by Analyzer 0 % (0-5); Neutrophil # 4.43 X10^3/uL (2.7-7.7); Neutrophil % 59.5 % (47-70); Platelet Count 340 K/mm3 (150-450); RBC Distribution Width CV 13.2 % (11.6-14.6); RBC Distribution Width SD 41.1 fl (35.1-43.9); Red Blood Count 4.72 M/mm3 (4.2-5.4); White Blood Count 7.4 K/mm3 (4.4-11.0)
[2022-12-31] MEDS: 0.9% Normal Saline 1,000 ML 1000 ML IV (17:14)
[2022-12-31] MEDS: Aspirin 81 MG TAB.CHEW 324 MG PO (17:14)
--- NOTE | 2022-12-31 17:22 | EX.ED.DYSGE1 ---
HPI <SONYA Roberts - Last Filed: 12/31/22 20:04> History of Present Illness Chief Complaint: Chest Pain Narrative Narrative: Patient is a 67-year-old female with history of hypertension, migraine headaches, history of breast cancer who is currently not active presents to the emergency department after chest pain, 1 episode of syncope, continuing dizziness. Patient states that yesterday she walked into her brother's house and found him . This was obviously very stressful, patient states that last evening she was going from the bedroom to her kitchen when she felt tingly and then woke up on the floor. Patient states that she had bleeding from her nose and her mouth. Patient developed some chest pain last evening as well as going on today. Patient states is very sharp and stabbing and then goes away. She is currently not in pain at this time. Patient complains of some facial pain. She is unsure if this is from stress however she is concerned secondary to the continuing chest pain. PFSH <SONYA Roberts - Last Filed: 12/31/22 20:04> [facility] Medical History Arthritis Breast cancer of lower-outer quadrant of left female breast Cancer Chest pain Former smoker GERD (gastroesophageal reflux disease) High cholesterol History of diverticulitis Injury of head and neck Lymphedema Osteoarthritis Osteopenia Restless legs Wears contact lenses Home Medications amitriptyline 25 mg tablet 50 mg PO DAILY 11/17/13 [History Last Taken 05/01/18] aspirin 81 mg chewable tablet 81 mg PO DAILY@0800 03/23/14 [History Last Taken 04/25/18] gghrvnhppzvn-Ma-xuqx-minerals (Multiple Vitamin, Womens tablet) 1 tab PO DAILY 10/17/16 [History Last Taken Unknown] quinapril 40 mg tablet (Accupril) 40 mg PO DAILY #0 TABLETS 10/17/16 [History Last Taken 07/27/21 03:30] acetaminophen 325 mg tablet 650 mg (2 x 325 mg) PO Q4H PRN PRN Pain #0 tabs 10/19/16 [Rx Last Taken Unknown] calcium citrate 315 mg-vitamin D3 5 mcg (200 unit) tablet 1 tab PO DAILY 01/19/21 [History Last Taken Unknown] ibuprofen 600 mg tablet 600 mg PO 4X/DAY PRN mild to moderate pain 01/19/21 [History Last Taken Unknown] pantoprazole 40 mg tablet,delayed release 40 tablet PO QODAY 01/19/21 [History Last Taken 02/10/21 06:30] pravastatin 40 mg tablet 80 mg PO DAILY 09/27/21 [History Last Taken Unknown] anastrozole 1 mg tablet See Rx Instructions .Route .COMPLEX #90 tabs 09/08/22 [Rx Last Taken Unknown] Allergy/AdvReac Type Severity Reaction Status Date / Time dexlansoprazole AdvReac Mild gi upset Verified 12/19/22 11:33 [From Dexilant] Family History Father Heart disease Myocardial infarction Mother Diabetes Brother Diabetes Sister Diabetes Surgical History History of appendectomy History of bilateral carpal tunnel release History of breast biopsy (~01/2021) History of cervical discectomy History of colonoscopy History of hysterectomy History of lumpectomy of left breast (~02/2021) History of repair of rectocele History of thumb surgery Social History Smoking Status: Former smoker Tobacco: How many years used: 20 second hand exposure: No details: occasionally substance use type: does not use rocco/lutheran: Advent seatbelt use: always do you feel safe at home: Yes ROS <SONYA Roberts - Last Filed: 12/31/22 20:04> [facility] Narrative Constitutional: Negative for fever, chills, weight loss, weakness Eyes: Negative for vision loss, vision change, double vision ENT: Negative for any sore throat, ear pain, congestion Cardiovascular: Negative for any tightness, palpitations. Positive for chest pain Respiratory: Negative for any cough, sputum production, hemoptysis, dyspnea, dyspnea on exertion, orthopnea Gastrointestinal: Negative for any abdominal pain, nausea, vomiting, diarrhea, constipation, blood in stool, blood in vomit : Negative for any urinary frequency, dysuria, retention, blood in urine Muscle skeletal: Negative for any muscle joint pain, stiffness, myalgias, arthralgias, neck pain, back pain Neurological: Negative for any headache, numbness or tingling. Positive for dizziness, syncope Skin: Negative for any rashes, lumps, itching, abrasions, lacerations Psychiatric: Negative for any depression, anxiety, stress, suicidal ideation, homicidal ideation Hematologic: Negative for any easy bruising, excessive bruising, easy bleeding Allergies: Negative for any eczema, hives, rash EXAM <Francisco MejiasclaySONYA sargent - Last Filed: 12/31/22 20:04> Physical Exam Narrative Exam Narrative: Vital signs reviewed. HEET: Head normocephalic atraumatic, TMs clear bilaterally. Posterior pharynx is clear, moist mucous membranes. Nares clear bilaterally. Patient has no hematoma, septal hematoma. Pupils equal round reactive to light. Patient does have an abrasion, superficial laceration to the right upper lip. Patient does have some pain along the nasal spine. Neck: Supple with no lymphadenopathy or tenderness. No signs of meningismus, negative jolt sign. Cardiac: Regular rate and rhythm no murmurs gallops or rubs, equal peripheral pulses bilaterally. Respiratory: Lungs clear to auscultation bilaterally. No chest tenderness. Abdomen: Soft, nontender, nondistended. No abdominal bruit or pulsatile masses. No hepatosplenomegaly Extremities: No peripheral edema, no signs of gross trauma or deformity. Active full range of motion of all extremities. Neuro: Cranial nerves II through XII intact, no focal neurological deficits. Skin: Clean dry and intact with no rash, purpura, petechiae, vesicles or pustules. Backs/flank: No CVA tenderness, no midline spinal tenderness, no deformity. Psych: Normal mood and affect. No SI, HI or acute psychosis. Const Vital Signs: 12/31/22 16:44 12/31/22 16:54 12/31/22 16:54 Temperature 96.8 F L Temperature Source Temporal Pulse Rate 93 Respiratory Rate 18 Respiratory Effort Normal Non-Labored Normal Non-Labored Respiratory Pattern Normal Blood Pressure 140/79 H Blood Pressure Mean 99 Pulse Ox 97 Oxygen Delivery Method Room Air 12/31/22 17:10 12/31/22 18:00 12/31/22 19:00 Temperature Temperature Source Pulse Rate 79 77 Respiratory Rate 15 15 Respiratory Effort Respiratory Pattern Blood Pressure 126/70 H 126/84 H Blood Pressure Mean 88 98 Pulse Ox 97 97 Oxygen Delivery Method Room Air Room Air Room Air 12/31/22 20:04 Temperature Temperature Source Pulse Rate 84 Respiratory Rate 16 Respiratory Effort Respiratory Pattern Blood Pressure 118/77 Blood Pressure Mean Pulse Ox 98 Oxygen Delivery Method <Dr. Frank Villatoro DO - Last Filed: 01/01/23 00:00> Physical Exam Const Vital Signs: 12/31/22 16:44 12/31/22 16:54 12/31/22 16:54 Temperature 96.8 F L Temperature Source Temporal Pulse Rate 93 Respiratory Rate 18 Respiratory Effort Normal Non-Labored Normal Non-Labored Respiratory Pattern Normal Blood Pressure 140/79 H Blood Pressure Mean 99 Pulse Ox 97 Oxygen Delivery Method Room Air 12/31/22 17:10 12/31/22 18:00 12/31/22 19:00 Temperature Temperature Source Pulse Rate 79 77 Respiratory Rate 15 15 Respiratory Effort Respiratory Pattern Blood Pressure 126/70 H 126/84 H Blood Pressure Mean 88 98 Pulse Ox 97 97 Oxygen Delivery Method Room Air Room Air Room Air 12/31/22 20:04 Temperature Temperature Source Pulse Rate 84 Respiratory Rate 16 Respiratory Effort Respiratory Pattern Blood Pressure 118/77 Blood Pressure Mean Pulse Ox 98 Oxygen Delivery Method [facility] <SONYA Roberts - Last Filed: 12/31/22 20:04> [facility] Lab Data Labs: Laboratory Results - last 24 hr 12/31/22 12/31/22 12/31/22 16:52 17:00 19:28 WBC 7.4 RBC 4.72 Hgb 13.3 Hct 40.1 MCV 85.0 MCH 28.2 MCHC 33.2 RDW Std Deviation 41.1 RDW Coeff of Shanda 13.2 Plt Count 340 MPV 8.9 Immature Gran % (Auto) 0.300 Neut % (Auto) 59.5 Lymph % (Auto) 29.0 [place] % (Auto) 8.9 Eos % (Auto) 1.5 Baso % (Auto) 0.8 Absolute Neuts (auto) 4.4 Absolute Lymphs (auto) 2.16 Nucleated RBC % 0 D-Dimer Quant (PE/DVT) 0.51 H* Sodium 137 Potassium 3.8 Chloride 104 Carbon Dioxide 28.0 Anion Gap 5 BUN 13 Creatinine 1.22 H Estim Creat Clear Calc 37.58 Est GFR (MDRD) Af Amer 56 L Est GFR (MDRD) Non-Af 46 L BUN/Creatinine Ratio 10.7 Glucose 110 H Calcium 9.4 Troponin I High Sens 9 10 POC Glucose 113 H Radiography Diagnostic Testing: Clinical Impression(s) from Imaging Studies Chest X-Ray 12/31/22 17:12 IMPRESSION: Mild left lung base atelectasis. Electronically Signed: Francisco Doyle MD at 18:01 EDT , Brain CT 12/31/22 17:25 IMPRESSION: Negative Brain CT without contrast. Electronically Signed: Francisco Doyle MD at 19:10 EDT , Facial/Sinus 12/31/22 17:25 IMPRESSION: Unremarkable CT of the facial bones. Electronically Signed: Francisco Doyle MD at 19:19 EDT , EKG Normal sinus rhythm: Attestation: I personally reviewed and interpreted this EKG as follows: Interpretation: Sinus Rhythm Comments: Normal sinus rhythm, rate 86 bpm, [place] interval 176 ms, QRS duration 80 ms, no acute ST elevation, no acute infarct noted. Treatment and Re-Evaluation :: WithPatient appears generally well, patient appears nontoxic, vital signs are stable. Patient presents to the emergency department concerning for sharp shooting chest pain, syncopal episode that occurred last evening. Patient has been under a great deal of stress. Patient will receive a 2 troponins, chest x-ray, dimer will be ordered concerning for any concern for PE. Patient EKG was unremarkable. Patient will receive a CT scan of the brain, maxillofacial bones concern for a fracture skull fracture, intracranial bleeding. Patient will be given baby aspirin. Patient's CBC was unremarkable, patient's D-dimer was slightly elevated 0.51 however when age-adjusted, it is within normal limits. A CT scan does not need to be completed. Patient's creatinine was slightly elevated, baseline is 0.85, patient was 1.22 patient's GFR slightly lower. Patient's troponin was 9 which is negative. EKG was unremarkable. Patient CT scan of the brain, maxillofacial bones were grossly unremarked for any acute fracture, intracranial bleeding. Patient repeat troponin was negative. Patient was able to ambulate around the department and felt well-appearing. At this time, patient stable for discharge. There is no evidence suspect any pulmonary embolus, cardiopulmonary process. I believe the patient was dehydrated, also combining with stress of losing her brother 24 hours ago. At this time, patient stable for discharge and follow-up outpatient. <Dr. Frank Villatoro, DO - Last Filed: 01/01/23 00:00> [facility] Narrative Medical decision making narrative: I, Dr Villatoro, have reviewed the above progress note and course of action in the ER; agree with the above. I have personally seen and evaluated this patient, gone over history and physical, and discussed disposition and treatment plan with the patient. Lab Data Attestation: I reviewed the patient's lab results. Labs: Laboratory Results - last 24 hr 12/31/22 12/31/22 12/31/22 16:52 17:00 19:28 WBC 7.4 RBC 4.72 Hgb 13.3 Hct 40.1 MCV 85.0 MCH 28.2 MCHC 33.2 RDW Std Deviation 41.1 RDW Coeff of Shanda 13.2 Plt Count 340 MPV 8.9 Immature Gran % (Auto) 0.300 Neut % (Auto) 59.5 Lymph % (Auto) 29.0 [place] % (Auto) 8.9 Eos % (Auto) 1.5 Baso % (Auto) 0.8 Absolute Neuts (auto) 4.4 Absolute Lymphs (auto) 2.16 Nucleated RBC % 0 D-Dimer Quant (PE/DVT) 0.51 H* Sodium 137 Potassium 3.8 Chloride 104 Carbon Dioxide 28.0 Anion Gap 5 BUN 13 Creatinine 1.22 H Estim Creat Clear Calc 37.58 Est GFR (MDRD) Af Amer 56 L Est GFR (MDRD) Non-Af 46 L BUN/Creatinine Ratio 10.7 Glucose 110 H Calcium 9.4 Troponin I High Sens 9 10 POC Glucose 113 H Radiography Diagnostic Testing: Clinical Impression(s) from Imaging Studies Chest X-Ray 12/31/22 17:12 IMPRESSION: Mild left lung base atelectasis. Electronically Signed: Francisco Doyle MD at 18:01 EDT , Brain CT 12/31/22 17:25 IMPRESSION: Negative Brain CT without contrast. Electronically Signed: Francisco Doyle MD at 19:10 EDT , Facial/Sinus 12/31/22 17:25 IMPRESSION: Unremarkable CT of the facial bones. Electronically Signed: Francisco Doyle MD at 19:19 EDT , Discharge Plan Triage Chief Complaint: Chest Pain Other Complaint: Dizziness Syncope ED Midlevel Provider: Francisco Miles ED Provider: Frank Villatoro Dx/Rx/DC Orders Clinical Impression: CHI (closed head injury), Syncope, Chest pain Instructions: Causes of Syncope, Concussion Dc, ED Chest Pain, Uncertain Cause Prescriptions: No Action ibuprofen 600 mg tablet 600 mg PO 4X/DAY PRN (Reason: mild to moderate pain) pantoprazole 40 mg tablet,delayed release (DR/EC) 40 tablet PO QODAY calcium citrate-vitamin D3 315 mg-5 mcg (200 unit) tablet 1 tab PO DAILY amitriptyline 25 MG tablet 50 mg PO DAILY Patient Comments: aspirin 81 MG tablet,chewable 81 mg PO DAILY@0800 quinapril [Accupril] 40 mg Tablet 40 mg PO DAILY Qty: 0 Multiple Vitamin, Womens 1 EACH tablet 1 tab PO DAILY acetaminophen 325 MG tablet 650 mg PO Q4H PRN PRN (Reason: Pain) Qty: 0 0RF pravastatin 40 mg tablet 80 mg PO DAILY Patient Comments: TAKE 1 TABLET BY MOUTH EVERY DAY anastrozole 1 mg tablet See Rx Instructions .ROUTE .COMPLEX Qty: 90 3RF Dose Instruction: TAKE 1 TABLET DAILY Rx Instructions: TAKE 1 TABLET DAILY Primary Care Provider: Espinoza Lora Referrals: Espinoza Lora DO [Primary Care Provider] - Activity Restrictions/Additional Instructions: Please ensure that you maintain hydration, return for any worsening symptoms. Disposition Disposition: Home, Self Care Discharge Date/Time: 12/31/22 20:32
--- NOTE | 2022-12-31 17:25 | CT_ITS ---
INDICATION: Fall EXAMINATION: CT FACIAL BONES - CT Maxillofacial W/O Contrast Injection TECHNIQUE: Helically acquired images were obtained of the facial bones. A radiation dose optimization technique was used for this scan. IV Contrast dosage and agent: None. RADIATION DOSAGE (If Supplied By Facility): CTDIvol = ( 29.38 ) mGy, DLP = ( 628.26 ) mGycm COMPARISON: Concurrent head CT FINDINGS: SOFT TISSUES: No focal subcutaneous swelling. No discrete fluid collections. VISUALIZED PARANASAL SINUSES: Clear. VISUALIZED MASTOID AIR CELLS: Clear. FACIAL BONES, MANDIBLE AND TMJs: No displaced facial bone fracture. No lytic or blastic abnormality. VISUALIZED DENTITION: No periodontal osseous erosion. ORBITAL CONTENTS: Both globes, extraocular muscles and retrobulbar fat appear unremarkable. CT/Sinus/Facial Bone IMPRESSION: Unremarkable CT of the facial bones. Electronically Signed: Francisco Doyle MD at 19:19 EDT ,
--- NOTE | 2022-12-31 17:25 | CT_ITS ---
INDICATION: Fall EXAMINATION: CT BRAIN - CT Head or Brain W/O Contrast Injection TECHNIQUE: Multiple axial images were obtained of the head without intravenous contrast. A radiation dose optimization technique was used for this scan. IV Contrast dosage and agent: None. RADIATION DOSAGE (If Supplied By Facility): CTDIvol = ( 44.99 ) mGy, DLP = ( 812.98 ) mGycm COMPARISON: 10/27/2016 brain MRI FINDINGS: BRAIN PARENCHYMA: No intra- or extra-axial hemorrhage. No evidence of acute infarct. No intracranial mass or mass effect. There is preservation of the roche/white matter interface. Posterior fossa structures are unremarkable. CSF SPACES: Appropriate for age. No hydrocephalus. Basal cisterns are patent. CALVARIUM, SKULL BASE, PARANASAL SINUSES AND MASTOID AIR CELLS: Clear. No discrete lytic or blastic abnormalities. ORBITS: Both globes, extraocular muscles, optic nerves and retrobulbar fat appear unremarkable. ASPECTS Score for Acute Strokes: 10 CT/Brain/Head without Contrast IMPRESSION: Negative Brain CT without contrast. Electronically Signed: Francisco Doyle MD at 19:10 EDT ,
[2022-12-31 17:33] LABS: Anion Gap 5 (5-15); BUN 13 mg/dL (7-18); BUN/Creat Ratio 10.7 RATIO (10-20); Calcium,Total 9.4 mg/dL (8.5-10.1); Chloride 104 mmol/L (98-107); Creatinine, Serum 1.22 mg/dL (0.55-1.02); EST Glomerular Filtration Rate 46 mL/min (>60); Est Glom Filt Rate - Afr Amer 56 mL/min (>60); Estimated Creatinine Clearance 37.58 ml/min; Glucose 110 mg/dL (74-106); Potassium 3.8 mmol/L (3.5-5.1); Sodium Level 137 mmol/L (136-145); Troponin-I HS (w/2H Reflex) 9 pg/mL (3.0-54.0)
[2022-12-31 17:35] LABS: D-Dimer Quantitative (DVT/PE) 0.51 FEU/ug/m (0.27-0.49)
[2022-12-31 18:00] VITALS: BP 126/70; PULSE 79; RESP 15; O2SAT 97
[2022-12-31 19:00] VITALS: BP 126/84; PULSE 77; RESP 15; O2SAT 97
[2022-12-31 19:11] LABS: Reflex Troponin-HS? (from REC) Y
[2022-12-31 19:55] LABS: Troponin-I HS 10 pg/mL (3.0-54.0)
[2022-12-31 20:04] VITALS: BP 118/77; PULSE 84; RESP 16; O2SAT 98
== END 2022-12-31 20:32 | disposition home or self-care (01) ==
PROVIDERS: Nurse Practitioner; Emergency Provider Emergency Medicine; PCP Preventive Medicine Occupational Medicine; Visit Provider Emergency Medicine
DX: R55 Syncope and collapse (principal); R07.9 Chest pain, unspecified; I10 Essential (primary) hypertension; E78.00 Pure hypercholesterolemia, unspecified; Z87.891 Personal history of nicotine dependence; S09.90XA Unspecified injury of head, initial encounter; Z85.3 Personal history of malignant neoplasm of breast; Z79.899 Other long term (current) drug therapy; Z79.82 Long term (current) use of aspirin; K21.9 Gastro-esophageal reflux disease without esophagitis; Z90.49 Acquired absence of other specified parts of digestive tract; Z90.710 Acquired absence of both cervix and uterus; W18.39XA Other fall on same level, initial encounter
CPT/HCPCS: 70450; 70486; 71045; 80048; 82962; 84484; 85025; 85379; 93005; 96360; 99285; J7030; A4216

== ENCOUNTER → 2023-03-14 | Outpatient (CLI) | payer MEDICARE, OTHER, SELFPAY ==
--- NOTE | 2023-03-14 08:35 | BD_ITS ---
STUDY: DUAL ENERGY X-RAY ABSORPTIOMETRY / DXA REASON FOR EXAM: Female, 67 years old. SCREENING TECHNIQUE: Bone Mineral Density (BMD) measurements of lumbar spine and bilateral hips were obtained. COMPARISON: Comparison is made with prior study March 09, 2021. FINDINGS: Lumbar Spine (L1-L4): g/cm2 (0.971) / T-score (-0.7) / Z-score (1.4) Findings are suggestive of normal bone density with a low fracture risk. Left Femur Total: g/cm2 (0.828) / T-score (-0.9) / Z-score (0.5) Left Femoral Neck: g/cm2 (0.745) / T-score (-0.9) / Z-score (0.8) Right Femur Total: g/cm2 (0.845) / T-score (-0.8) / Z-score (0.7) Right Femoral Neck: g/cm2 (0.720) / T-score (-1.2) / Z-score (0.6) The T-Scores on the most recent prior examination were: Lumbar Spine (L1-L4): There has been improvement of bone density since the previous examination. Left Femur Total: which represents an improvement of 10.3%. Right Femur Total: which represents an improvement of 6.7%. BD/Dexa Bone Density Study IMPRESSION: The patient is considered osteopenic as outlined below according to World Brian Organization (WHO) criteria with a low fracture risk. There has been improvement of bone density since the previous examination. Reference Information: The T-score is the number of standard deviations above or below the standard which is normal for young adults at their peak bone mineral density. The World Health Organization (WHO) interprets the T-scores as follows: Above -1 Normal bone density Between -1 and -2.5 Osteopenia Equal to / or below -2.5 Osteoporosis As a practical clinical guideline, osteopenia may be graded as follows: Mild -1 through -1.5 Moderate -1.6 through -2.0 Severe -2.1 through -2.4 The Z-score is the number of standard deviations above or below age-matched controls. A Z-score of less than -1.5 would be considered abnormal. References: 1. NIH Osteoporosis and Related Bone Diseases www osteo.org 2. International Society for Clinical Densitometry www iscd.org 3. National Osteoporosis Foundation www nof.org Electronically Signed: Nathaniel Lundy MD at 12:17 EDT ,
== END | disposition home or self-care (01) ==
PROVIDERS: PCP Preventive Medicine Occupational Medicine; Referring Provider Internal Medicine Hematology & Oncology; Visit Provider Internal Medicine Hematology & Oncology
DX: M85.89 Other specified disorders of bone density and structure, multiple sites (principal)
CPT/HCPCS: 77080

== ENCOUNTER → 2023-06-26 | Outpatient (CLI) | payer MEDICARE, OTHER, SELFPAY ==
--- NOTE | 2023-06-26 08:19 | BI_ITS ---
MAMMOGRAPHY - BILATERAL SCREENING REASON FOR EXAM: Female, 67 years old. Routine annual screening examination. PERTINENT HISTORY: Personal history of breast cancer. Prior left lumpectomy. Left breast radiation. Bilateral breast reduction surgery. TECHNIQUE: Digital bilateral breast yuridia (3D mammographic acquisition) in the CC and MLO projections. 2-D mediolateral oblique (MLO) and craniocaudad (CC) views of both breasts were obtained. CAD: Full Field Digital Mammography with Computer Added Detection was performed. COMPARISON: Comparison is made with prior study dated December 12, 2022 and December 15, 2022. FINDINGS: Breast Composition: The breasts are heterogeneously dense, which may obscure small masses. There are no dominant masses or suspicious calcifications. Since prior study, the patient underwent resection of an irregular heterogeneous nodule in the upper lateral portion of the right breast. Surgical clips are once again seen in the left axilla. No other significant abnormalities are identified. BI/SCRN MAMM (CAD)W/YURIDIA BILAT IMPRESSION: Status post resection of a nodule in the anterior upper lateral aspect of the right breast. Yearly follow-up mammogram recommended. (A) ASSESSMENT CATEGORY: BIRADS Category 2: Benign. A letter regarding these results will be sent to the patient by the facility within 30 days. Approximately 10% of breast cancers are not detected by mammography. A normal mammogram should not delay biopsy of a clinically suspicious abnormality. [id number] Electronically Signed: Nathaniel Lundy MD at 14:43 EST ,
--- OUTSIDE RECORDS SUMMARY | 2023-06-26 08:58 | XMS RPT_ITS | CCD ---
Author Name Unknown Address [address] [place] [address] Organization [facility] Care Team Providers Care Pals Specialist Name Role Phone AMADOU JOSEPH DO Primary Care Physician [phone] AMADOU JOSEPH DO Attending Unavailable AMADOU JOSEPH DO Primary Care Unavailable AMADOU JOSEPH DO Attending Unavailable AMADOU JOSEPH DO Primary Care Unavailable Allergies Allergy Classification Reported Allergen(s) Allergy Type Date of Onset Reaction(s) Facility (2 sources) dexlansoprazole; Translations: [dexlansoprazole ] Drug Allergy Nausea (finding) [facility] Work Phone: Medications Current Medications Medication Drug Class(es) Dates Sig (Normalized) Sig (Original) amitriptyline hydrochloride 50 mg oral tablet (2 sources) Tricyclic Antidepressant Start: 07-25-2022 amitriptyline 50 mg oral tablet Dose : 50 mg = 1 tab(s), Oral, qHS, # 90 tab(s), 3 Refill(s), [facility], 163, cm, 07/25/22 9:38:00 EST, Height, kg, 07/25/22 9:38:00 EST, Dosing Weight Start Date: 07/25/22 Status: Ordered Problems Problem Classification Problem Date Documented Date Episodic/Chronic Cancer of breast (2 sources) Malignant tumor of breast 07-23-2021 Chroni c Disorders of lipid metabolism (2 sources) Pure hypercholesterolemia 07-22-2019 Chroni c Esophageal disorders (2 sources) Gastroesophageal reflux disease without esophagitis 07-22-2019 Chronic Essential hypertension (2 sources) Essential hypertension 07-22-2019 Chronic Headache; including migraine (2 sources) Migraine with aura 07-22-2019 Chronic Osteoarthritis (4 sources) Bilateral osteoarthritis of knees; Translations: [Osteoarthritis of right hip joint] 07-22-2019 Chronic Other circulatory disease (2 sources) History of cerebrovascular accident 07-22-2019 Episodic Other connective tissue disease (2 sources) Pain in thumb 01-04-2021 Episodic Results Test Name Value Interpretation Reference Range Facil ity Encounters Encounter Date Encounter Type Care Provider Facility Start: 07-25-2022 End: 07-26-2022 ambulatory AMADOU JOSEPH DO Facility:B Start: 07-25-2022 End: 07-25-2022 Patient encounter procedure AMADOU JOSEPH DO [facility] Start: 08-31-2021 End: 09-01-2021 ambulatory AMADOU JOSEPH DO Facility:[facility] Start: 07-23-2021 End: 07-23-2021 Patient encounter procedure AMADOU JOSEPH DO [facility] Procedures Date Procedure Procedure Detail Performing Clinician Appendectomy AMADOU JOSEPH [facility] Colonoscopy AMADOU JOSEPH DO Immunizations Immunization Date Immunization Notes Care Provider Roland briceño 02-18-2019 influenza virus vaccine, unspecified formulation AMADOU JOSEPH DO [facility] Payers Date Payer Category Payer Medicare [id number] 2021 Unknown [id number] 1955 Unknown [id number] 1955 Unknown [id number] Social History Date Type Detail Facility Start: 07-22-2019 Never smoked t obacco (finding) [facility] Sex Assigned At Female [facility] Evaluation + Plan note Laboratory Note Date & Type Note Facility Evaluation + Plan note Future Appointments Appointment Date:01/21/2022 08:30:00 AM Scheduled Provider:AMADOU JOSEPH DO Location:[facility] Appointment Type:PC OV Future Scheduled TestsLipid Profile 06/14/21 [facility] Evaluation + Plan note Note Date & Type Note Facility Evaluation + Plan note Future Appointments Appointment Date:01/23/2023 09:00:00 AM Scheduled Provider:AMADOU JOSEPH DO Location:[facility] Appointment Type:PC OV [facility] Hospital course Narrative Note Date & Type Note Facility Hospital course Narrative No data available for this section [facility] Hospital Discharge instructions Note Date & Type Note Facility Hospital Discharge instructions No data available for this section [facility] Progress note Note Date & Type Note Facility Progress note No data available for this section [facility] Summary Purpose Family History No Family History Records FoundNo Family History Records Found Advance Directives No Advanced Directives Records FoundNo Advanced Directives Records Found Additional Source Comments INFORMATION SOURCE (unrecogn ized section and content) DATE CREATED AUTHOR AUTHOR'S ORGANIZ ATION 07/28/2022 [facility] ([place]) Care Team (unrecognized sect ion and content) Care Team Personnel Name: AMADOU JOSEPH DO Position: P4 Physician - Primary Care Member Role: Primary Care Physician Address: Address: [address] [place] [id number] [place] [address] Care Team Related Persons Name: WESTON COWART Address: [address] [place], [place] [id number] Address: Temporary [address] [place] [phone] FOR RECORDS PERTAINING TO PATIENTS WHO ARE OR HAVE BEEN ENROLLED IN A CHEMICAL DEPENDENCY/SUBSTANCEABUSE PROGRAM, SOME INFORMATION MAY BE OMITTED. This clinical summary was aggregated from multiple sources. Caution should be exercised in using it in the provision of clinical care. This summary normalizes information from multiple sources, and as a consequence, information in this document may materially change the coding, format and clinical context of patient data. In addition, data may be omitted in some cases. CLINICAL DECISIONS SHOULD BE BASED ON THE PRIMARY CLINICAL RECORDS. [facility]. provides no warranty or guarantee of the accuracy or completeness of information in this document.
== END | disposition home or self-care (01) ==
LOC: OPBI 08:19
PROVIDERS: PCP Preventive Medicine Occupational Medicine; Referring Provider Internal Medicine Hematology & Oncology; Visit Provider Internal Medicine Hematology & Oncology
DX: Z12.31 Encounter for screening mammogram for malignant neoplasm of breast (principal); Z85.3 Personal history of malignant neoplasm of breast
CPT/HCPCS: 77063; 77067

== ENCOUNTER 2023-09-20 18:11 | Emergency (ER) | payer MEDICARE, OTHER, SELFPAY ==
[2023-09-20 18:12] VITALS: BP 140/86; PULSE 96; RESP 16; TEMP 36; O2SAT 98; BMI 28.4
--- NOTE | 2023-09-20 18:51 | EDS_ITS ---
HPI HPI - GI History of Present Illness Chief Complaint: Abd Pain Detail of Chief Complaint: Abdominal pain Informant: patient Narrative Narrative: Patient presents with abdominal pain and started around 1 AM this morning. Patient states that she has history of diverticulitis. She states pains in her left lower quadrant and is there all the time but tends to wax and wane in intensity. She denies nausea or vomiting. She denies blood in her stool. She denies black tarry stool. She denies diarrhea. She denies urinary symptoms. [facility] Medical History Arthritis Breast cancer of lower-outer quadrant of left female breast Cancer Chest pain Former smoker GERD (gastroesophageal reflux disease) High cholesterol History of diverticulitis Injury of head and neck Lymphedema Osteoarthritis Osteopenia Restless legs Wears contact lenses Home Medications aspirin 81 mg chewable tablet 81 mg PO DAILY@0800 03/23/14 [History Last Taken 04/25/18] ketadxluczlq-Os-kska-minerals (Multiple Vitamin, Womens tablet) 1 tab PO DAILY 10/17/16 [History Last Taken Unknown] quinapril 40 mg tablet (Accupril) 40 mg PO DAILY #0 TABLETS 10/17/16 [History Last Taken 07/27/21 03:30] acetaminophen 325 mg tablet 650 mg (2 x 325 mg) PO Q4H PRN PRN Pain #0 tabs 10/19/16 [Rx Last Taken Unknown] calcium citrate 315 mg-vitamin D3 5 mcg (200 unit) tablet 1 tab PO DAILY 01/19/21 [History Last Taken Unknown] ibuprofen 600 mg tablet 600 mg PO 4X/DAY PRN mild to moderate pain 01/19/21 [History Last Taken Unknown] pantoprazole 40 mg tablet,delayed release 40 tablet PO QODAY 01/19/21 [History Last Taken 02/10/21 06:30] pravastatin 40 mg tablet 80 mg PO DAILY 09/27/21 [History Last Taken Unknown] anastrozole 1 mg tablet 1 mg PO DAILY #90 tabs 07/26/23 [Rx Last Taken Unknown] amitriptyline 25 mg tablet 25 mg PO DAILY 07/31/23 [History Last Taken Unknown] ciprofloxacin HCl 500 mg tablet 500 mg PO BID #14 TABLETS 09/20/23 [Rx Last Taken Unknown] hydrocodone-acetaminophen 5-325mg 5mg-325mg 1 tab PO Q4H PRN PRN Pain 2 days #10 TABLETS 09/20/23 [Rx Last Taken Unknown] metronidazole 500 mg tablet 500 mg PO Q8H 7 days #21 tabs 09/20/23 [Rx Last Taken Unknown] Allergy/AdvReac Type Severity Reaction Status Date / Time dexlansoprazole AdvReac Mild gi upset Verified 09/20/23 18:11 [From Dexilant] Family History Father Heart disease Myocardial infarction Mother Diabetes Brother Diabetes Sister Diabetes Surgical History History of appendectomy History of bilateral carpal tunnel release History of breast biopsy (~01/2021) History of cervical discectomy History of colonoscopy History of hysterectomy History of lumpectomy of left breast (~02/2021) History of repair of rectocele History of thumb surgery Social History Smoking Status: Former smoker Tobacco: How many years used: 20 second hand exposure: No details: occasionally substance use type: does not use rocco/holiness: Presybeterian seatbelt use: always do you feel safe at home: Yes ROS ROS ED Review of Systems ROS Unobtainable: other Constitutional Constitutional ED: Reports lethargy; Denies chills, fever(s), sweats or weight loss Eyes Eyes: Denies blurry vision, change in vision or diplopia ENT ENT ED: Denies rhinorrhea or sore throat Cardiovascular Cardiovascular: Denies chest pain, orthopnea or racing heartbeat Respiratory/Chest Respiratory/Chest: Denies cough, dyspnea, dyspnea on exertion, orthopnea or sputum Gastrointestinal Gastrointestinal: Reports abdominal pain; Denies diarrhea, nausea or vomiting Genitourinary Genitourinary ED: Denies dysuria, hematuria or urinary frequency Musculoskeletal Musculoskeletal: Denies arthralgias, back pain, myalgias or neck pain Integumentary Denies abscess, Abrasions or rash Neurologic Neurologic: Denies headache(s) or weakness Psychiatric Psychiatric: Denies anxiety, depression or suicidal thoughts Endocrine Endocrinology: Denies polydipsia, polyphagia or polyuria Hematologic/Lymphatic Hematologic/Lymphatic: Denies easy bleeding, easy bruising or lymphadenopathy Allergic/Immunologic Allergic/Immunologic ED: Denies mouth swelling, tongue swelling or urticaria EXAM Physical Exam Const Vital Signs: 09/20/23 18:12 Temperature 96.8 F L Temperature Source Temporal Pulse Rate 96 Respiratory Rate 16 Blood Pressure 140/86 H Blood Pressure Mean 104 Pulse Ox 98 Oxygen Delivery Method Room Air Positive well nourished and well developed General Appearance ED: well developed and NAD HEENT Reports TM's clear and moist mucous membranes normocephalic and atraumatic; Negative for trauma or tenderness Tympanic Membrane ED: Yes TM's clear Eyes PERRL and EOMs intact bilaterally General Eye ED: Negative for pale conjunctiva or scleral icterus Neck no lymphadenopathy, supple and no JVD General: Negative for tenderness Chest Wall inspection of chest normal and palpation of chest normal Chest: Negative for tenderness Resp normal respiratory effort and clear to auscultation bilaterally Effort and Inspection: Negative for respiratory distress or pain with movement Auscultation: Negative for rhonchi, wheezes or diminished lung sounds Cardio regular rate, regular rhythm, S1 normal heart sound, S2 normal heart sound and no murmurs Peripheral Pulses: pulses 2+ throughout GI normal to inspection, nondistended, normoactive bowel sounds, soft to palpation, non-distended and no masses GI Narrative: Tenderness palpation over the left lower quadrant with some guarding. There is no rebound, rigidity, or pineal signs. No mass palpated Back/Spine no CVA tenderness and no thoracic nor lumbar tenderness Extremity normal to inspection General Extremety ED: Negative for edema General Extremity: Negative for edema Neuro oriented x3, CN's II-XII intact bilaterally, no sensory deficits noted and gait normal Sensorium / Orientation: awake, alert, oriented to person, oriented to place and oriented to time Motor Exam: strength 5/5 throughout and strength abnormal Psych mental status grossly normal Skin no rashes or lesions noted and no wounds MDM MDM MDM Narrative Medical decision making narrative: Patient presents to the emergency department for left lower quadrant pain with history of diverticulitis. IV line established. CBC with differential obtained showed a slightly elevated white count 11.4 with hemoglobin 12.7 platelet count of 402. Chemistries unremarkable. CT scan of the abdomen pelvis without contrast showed acute sigmoid diverticulitis without complication. Patient was started on Cipro and Flagyl p.o. She will be given a prescription for Cipro and Flagyl as well as [place] for pain. She is advised to follow-up with her primary care physician within next 3 to 5 days. She is to return if worsening pain, fever, bloody stools, or condition should worsen anyway. Lab Data Attestation: I reviewed the patient's lab results. Labs: Laboratory Results - last 24 hr 09/20/23 18:58 WBC 11.4 H RBC 4.70 Hgb 12.7 Hct 39.7 MCV 84.5 MCH 27.0 MCHC 32.0 RDW Std Deviation 40.5 RDW Coeff of Shanda 13.0 Plt Count 402 MPV 8.9 Immature Gran % (Auto) 0.400 Neut % (Auto) 74.5 H Lymph % (Auto) 14.4 L [place] % (Auto) 7.1 Eos % (Auto) 3.1 Baso % (Auto) 0.5 Absolute Neuts (auto) 8.5 H Absolute Lymphs (auto) 1.64 Nucleated RBC % 0 Sodium 137 Potassium 3.9 Chloride 104 Carbon Dioxide 28.0 Anion Gap 5 BUN 13 Creatinine 0.91 Estim Creat Clear Calc 60.08 Est GFR (MDRD) Af Amer 79 Est GFR (MDRD) Non-Af 65 BUN/Creatinine Ratio 14.3 Glucose 102 Lactic Acid 0.9 Calcium 9.1 Radiography Diagnostic Testing: Clinical Impression(s) from Imaging Studies Abdomen/Pelvis CT 09/20/23 19:25 IMPRESSION: Mild diverticular disease of the colon with most pronounced involvement of the sigmoid colon where there is focal acute diverticulitis but no evidence for peridiverticular abscess Electronically Signed: Frank Lipscomb MD at 19:57 EDT , Discharge Plan Triage Chief Complaint: Abd Pain ED Provider: Jamal Burnette Dx/Rx/DC Orders Clinical Impression: Acute diverticulitis Instructions: ED Diverticulitis Prescriptions: New ciprofloxacin HCl [ciprofloxacin HCl] 500 mg tablet 500 mg PO BID Qty: 14 0RF metronidazole 500 mg tablet 500 mg PO Q8H 7 Days Qty: 21 0RF hydrocodone-acetaminophen [hydrocodone-acetaminophen] 5-325 mg tablet 1 tab PO Q4H PRN PRN (Reason: Pain) 2 Days Qty: 10 0RF No Action ibuprofen 600 mg tablet 600 mg PO 4X/DAY PRN (Reason: mild to moderate pain) pantoprazole 40 mg tablet,delayed release (DR/EC) 40 tablet PO QODAY calcium citrate-vitamin D3 315 mg-5 mcg (200 unit) tablet 1 tab PO DAILY amitriptyline 25 mg tablet 25 mg PO DAILY Patient Comments: aspirin 81 MG tablet,chewable 81 mg PO DAILY@0800 quinapril [Accupril] 40 mg Tablet 40 mg PO DAILY Qty: 0 Multiple Vitamin, Womens 1 EACH tablet 1 tab PO DAILY acetaminophen 325 MG tablet 650 mg PO Q4H PRN PRN (Reason: Pain) Qty: 0 0RF pravastatin 40 mg tablet 80 mg PO DAILY Patient Comments: TAKE 1 TABLET BY MOUTH EVERY DAY anastrozole 1 mg tablet 1 mg PO DAILY Qty: 90 1RF Primary Care Provider: Espinoza Lora Referrals: Espinoza Lora DO [Primary Care Provider] - 3-5 Days Disposition Disposition: Home, Self Care
[2023-09-20 19:07] LABS: Absolute Lymphocyte Count 1.64 X10^3/uL (0.83-4.51); Absolute Neutrophil Count 8.5 X10^3/uL (2.0-7.7); Basophil# 0.06 X10^3/uL; Basophil% 0.5 % (0-1); Eosinophil# 0.35 X10^3/uL; Eosinophils% 3.1 % (0-5); Hematocrit 39.7 % (37-47); Hemoglobin 12.7 g/dL (12.0-15.0); Lymphocyte # 1.64 X10^3/ul (0.83-4.51); Lymphocyte % 14.4 % (19-41); Mean Corpuscular Volume 84.5 fL (81-99); Mean Platelet Vol. 8.9 fl (6.2-12.0); Monocyte# 0.81 X10^3/uL; Monocyte% 7.1 % (0-10); NRBC Flagged by Analyzer 0 % (0-5); Neutrophil # 8.48 X10^3/uL (2.7-7.7); Neutrophil % 74.5 % (47-70); Platelet Count 402 K/mm3 (150-450); RBC Distribution Width SD 40.5 fl (35.1-43.9); White Blood Count 11.4 K/mm3 (4.4-11.0)
[2023-09-20] MEDS: 0.9% Normal Saline (1000mL) 1,000 ML 125 ML IV (19:12)
[2023-09-20 19:20] LABS: Anion Gap 5 (5-15); BUN 13 mg/dL (7-18); BUN/Creat Ratio 14.3 RATIO (10-20); Calcium,Total 9.1 mg/dL (8.5-10.1); Chloride 104 mmol/L (98-107); Creatinine, Serum 0.91 mg/dL (0.55-1.02); EST Glomerular Filtration Rate 65 mL/min (>60); Est Glom Filt Rate - Afr Amer 79 mL/min (>60); Estimated Creatinine Clearance 60.08 ml/min; Glucose 102 mg/dL (74-106); Potassium 3.9 mmol/L (3.5-5.1); Sodium Level 137 mmol/L (136-145)
--- NOTE | 2023-09-20 19:25 | CT_ITS ---
STUDY: CT ABDOMEN AND PELVIS WITHOUT CONTRAST REASON FOR EXAM: Female, 67 years old. Pain RADIATION DOSAGE (If Supplied By Facility): CTDIvol = ( 11.12 ) mGy, DLP = ( 580.53 ) mGycm TECHNIQUE: Transaxial images were obtained from the dome of the diaphragm to the symphysis pubis without oral contrast, and without intravenous contrast. Sagittal and coronal images were reconstructed. Individualized dose optimization techniques were used for this CT. COMPARISON: None. FINDINGS: The visualized lung bases are unremarkable. The visualized portions of the heart are within normal limits. Normal liver. Normal gallbladder and extrahepatic biliary system. Normal size spleen demonstrating tiny granulomatous calcification. Normal pancreas. Normal bilateral adrenal glands. No evidence for renal obstruction. There is a small simple cyst in each kidney which will not require additional imaging . Normal visualized stomach. Normal small intestine. There are diverticular changes of the colon most pronounced in the sigmoid colon. There is focal concentric thickening of the vega of the bowel and narrowing of the lumen with stranding in the fat consistent with acute diverticulitis. There is no peridiverticular abscess.. No evidence for acute appendicitis. Atherosclerotic changes of the aorta without evidence for aneurysm. Normal inferior vena cava. Normal retroperitoneum. Normal urinary bladder. Uterus not visualized status post hysterectomy Small bilateral fat-containing hernias. Lumbar spine demonstrates changes. CT/Abdomen/Pelvis without Cont IMPRESSION: Mild diverticular disease of the colon with most pronounced involvement of the sigmoid colon where there is focal acute diverticulitis but no evidence for peridiverticular abscess Electronically Signed: Frank Lipscomb MD at 19:57 EDT ,
[2023-09-20 19:32] LABS: Lactic Acid 0.9 mmol/L (0.4-1.9)
[2023-09-20 20:11] VITALS: BP 130/78; PULSE 87; RESP 16; O2SAT 97
[2023-09-20] MEDS: Ciprofloxacin 500 MG Tablet PO (20:24)
[2023-09-20] MEDS: metroNIDAZOLE 500 MG Tablet PO (20:24)
[2023-09-20 20:34] VITALS: BP 131/64; PULSE 75; RESP 16; TEMP 36.6; O2SAT 100
== END 2023-09-20 20:35 | disposition home or self-care (01) ==
PROVIDERS: Emergency Provider Emergency Medicine; PCP Preventive Medicine Occupational Medicine; Visit Provider Emergency Medicine
DX: K57.30 Diverticulosis of large intestine without perforation or abscess without bleeding (principal); Z87.891 Personal history of nicotine dependence; Z85.3 Personal history of malignant neoplasm of breast; E78.00 Pure hypercholesterolemia, unspecified; Z79.82 Long term (current) use of aspirin; Z79.899 Other long term (current) drug therapy; K21.9 Gastro-esophageal reflux disease without esophagitis; Z90.49 Acquired absence of other specified parts of digestive tract; Z90.710 Acquired absence of both cervix and uterus
CPT/HCPCS: 96360; 74176; 80048; 83605; 85025; 96361; 99283; J7030; A4216

== ENCOUNTER 2023-09-30 17:25 | Inpatient (IN) | payer MEDICARE, OTHER, SELFPAY ==
[2023-09-30] VITALS (7 sets, daily range): BP systolic 114–135; BP diastolic 64–89; PULSE 71–105; RESP 16–19; TEMP 36.4–37; O2SAT 94–99; BMI 29.2; BMI 28.8
--- NOTE | 2023-09-30 17:56 | EDS_ITS ---
HPI History of Present Illness Chief Complaint: GI Bleed Detail of Chief Complaint: Pain with diarrhea and blood with diarrhea Informant: patient Onset/Context/Timing Onset: Today and Yesterday Context: Sudden Onset Timing: Intermittent Quality: Left lower quadrant abdominal pain Location: Left lower quadrant Current Severity: Mild Maximum Severity: Moderate Worsened by: Palpation of the left lower quadrant and walking Relieved by: Nothing Associated Symptoms Associated Symptoms: Nausea and vomiting today and diarrhea Narrative Narrative: Patient is a 67-year-old woman who was recently diagnosed with uncomplicated sigmoid diverticulitis and treated with metronidazole and ciprofloxacin. She presents because of diarrhea and is noted blood in the diarrhea. She states she has significant pain with the diarrhea. She is complaining of fullness distention and left lower quadrant abdominal pain. She is on no immunosuppressive meds. She is on a baby aspirin. She is on a baby aspirin due to prior stroke. She is on no other antithrombotic and is on no anticoagulant. She does have a history of hemorrhoids. She denies fever, chills night sweats. Denies headache, visual, ocular auditory symptoms. She denies dyspnea or dyspnea on exertion. She denies urologic symptoms. Prior similar symptoms: Yes Recent Illness/Hospitalization: Yes [facility] [place] Medical History Arthritis Breast cancer of lower-outer quadrant of left female breast Cancer Chest pain Former smoker GERD (gastroesophageal reflux disease) High cholesterol History of diverticulitis Injury of head and neck Lymphedema Osteoarthritis Osteopenia Restless legs Wears contact lenses Home Medications aspirin 81 mg chewable tablet 81 mg PO DAILY@0800 03/23/14 [History Last Taken 04/25/18] aisvuqyxqggk-Wa-zigd-minerals (Multiple Vitamin, Womens tablet) 1 tab PO DAILY 10/17/16 [History Last Taken Unknown] quinapril 40 mg tablet (Accupril) 40 mg PO DAILY #0 TABLETS 10/17/16 [History Last Taken 07/27/21 03:30] acetaminophen 325 mg tablet 650 mg (2 x 325 mg) PO Q4H PRN PRN Pain #0 tabs 10/19/16 [Rx Last Taken Unknown] calcium citrate 315 mg-vitamin D3 5 mcg (200 unit) tablet 1 tab PO DAILY 01/19/21 [History Last Taken Unknown] ibuprofen 600 mg tablet 600 mg PO 4X/DAY PRN mild to moderate pain 01/19/21 [History Last Taken Unknown] pantoprazole 40 mg tablet,delayed release 40 tablet PO QODAY 01/19/21 [History Last Taken 02/10/21 06:30] pravastatin 40 mg tablet 80 mg PO DAILY 09/27/21 [History Last Taken Unknown] anastrozole 1 mg tablet 1 mg PO DAILY #90 tabs 07/26/23 [Rx Last Taken Unknown] amitriptyline 25 mg tablet 25 mg PO DAILY 07/31/23 [History Last Taken Unknown] ciprofloxacin HCl 500 mg tablet 500 mg PO BID #14 TABLETS 09/20/23 [Rx Last Taken Unknown] hydrocodone-acetaminophen 5-325mg 5mg-325mg 1 tab PO Q4H PRN PRN Pain 2 days #10 TABLETS 09/20/23 [Rx Last Taken Unknown] metronidazole 500 mg tablet 500 mg PO Q8H 7 days #21 tabs 09/20/23 [Rx Last Taken Unknown] Allergy/AdvReac Type Severity Reaction Status Date / Time dexlansoprazole AdvReac Mild gi upset Verified 09/30/23 17:29 [From Dexilant] Family History Father Heart disease Myocardial infarction Mother Diabetes Brother Diabetes Sister Diabetes Surgical History History of appendectomy History of bilateral carpal tunnel release History of breast biopsy (~01/2021) History of cervical discectomy History of colonoscopy History of hysterectomy History of lumpectomy of left breast (~02/2021) History of repair of rectocele History of thumb surgery Social History Smoking Status: Former smoker Tobacco: How many years used: 20 second hand exposure: No details: occasionally substance use type: does not use rocco/muslim: Zoroastrianism seatbelt use: always do you feel safe at home: Yes ROS ROS ED Constitutional Constitutional ED: Denies chills, fever(s), subjective or sweats Eyes Eyes: Denies blurry vision or change in vision ENT ENT ED: Denies ear pain or rhinorrhea Cardiovascular Cardiovascular: Denies chest pain or palpitations Respiratory/Chest Respiratory/Chest: Denies cough, dyspnea or dyspnea on exertion Gastrointestinal Gastrointestinal: Reports abdominal pain, diarrhea, nausea, vomiting and other Details: Hematochezia ; Denies constipation or melena Genitourinary Genitourinary ED: Denies dysuria, hematuria or urinary frequency Musculoskeletal Musculoskeletal: Denies back pain Integumentary Denies rash Hematologic/Lymphatic Hematologic/Lymphatic: Reports systems reviewed and no addt'l complaints, except as documented EXAM Physical Exam Const Vital Signs: 09/30/23 17:27 09/30/23 17:29 09/30/23 18:29 Temperature 97.6 F L 97.6 F L 98.6 F Temperature Source Temporal Temporal Temporal Pulse Rate 103 H 105 H 71 Respiratory Rate 16 16 16 Blood Pressure 114/81 H 114/81 H 135/89 H Blood Pressure Mean 92 92 104 Pulse Ox 94 95 99 Oxygen Delivery Method Room Air Room Air Room Air Positive well nourished and well developed General Appearance ED: well developed, NAD and pallor; Negative for cyanotic or diaphoretic HEENT Reports dry mucous membranes HEENT Narrative: Head is atraumatic no cephalic. Ears normal. Nares patent. Mouth ED: Yes dry mucous membranes Mouth: dry mucous membranes Eyes PERRL and EOMs intact bilaterally General Eye ED: Negative for pale conjunctiva or scleral icterus Neck no lymphadenopathy, supple and no JVD Chest Wall inspection of chest normal and palpation of chest normal Chest Narrative: Scar due to reconstructive breast surgery. Left Resp normal respiratory effort and clear to auscultation bilaterally Cardio regular rhythm, S1 normal heart sound, S2 normal heart sound and no murmurs Rate: tachycardic GI no masses; Negative for non-tender, non-distended or hepatosplenomegaly GI Narrative: Referred pain to the left lower quadrant with palpation on the right. She does have evidence of peritoneal irritation. Patient does have evidence of prior external hemorrhoids. There appears to be a small fissure in anal. On rectal exam there may have been blood noted. There is no stool in the rectal vault. There is no stricture. There is no palpable mass. She complained of tenderness. Anoscopy performed and documented in the procedure portion of the medical record Inspection: abdominal distention Auscultation: hypoactive bowel sounds Palpation: soft, tender LLQ and guarding LLQ Back/Spine no CVA tenderness Extremity normal to inspection General Extremety ED: Negative for edema General Extremity: Negative for edema Neuro oriented x3 and CN's II-XII intact bilaterally Sensorium / Orientation: alert Psych mental status grossly normal Skin no rashes or lesions noted, no wounds and skin turgor normal General Skin Exam: pallor MDM MDM MDM Narrative Medical decision making narrative: With recent history of diverticulitis with left lower quadrant abdominal pain with peritoneal findings CT was obtained because of concern for perforation or failed outpatient therapy. Suspect the blood is due to the external hemorrhoid noted on anoscopy. The mucosa appeared normal. There was blood noted above the scope. Will obtain CBC to assess white count as well as H&H. Since, his metabo lic panel to assess for any endorgan dysfunction since she has infectious/inflammatory process. IV fluids were administered. She was also given pain medicine. History & Record Review Additional record(s) reviewed:: Prior outpatient record (Dr. Jessica and Dr. Maceod's notes regarding the left breast cancer lower outer quadrant.), Prior ED visit and Prior labs Lab Data Attestation: I reviewed the patient's lab results. Lab results narrative: CBC and comprehensive metabolic panel are both normal. Of note prior to visit patient has slight elevation of white count to 11.4 thousand. Labs: Laboratory Results - last 24 hr 09/30/23 18:15 WBC 10.0 RBC 4.63 Hgb 12.6 Hct 39.1 MCV 84.4 MCH 27.2 MCHC 32.2 RDW Std Deviation 40.9 RDW Coeff of Shanda 13.2 Plt Count 360 MPV 8.8 Immature Gran % (Auto) 0.300 Neut % (Auto) 73.9 H Lymph % (Auto) 13.9 L [place] % (Auto) 9.1 Eos % (Auto) 2.5 Baso % (Auto) 0.3 Absolute Neuts (auto) 7.4 Absolute Lymphs (auto) 1.39 Nucleated RBC % 0 Sodium 139 Potassium 3.7 Chloride 106 Carbon Dioxide 28.0 Anion Gap 5 BUN 11 Creatinine 0.80 Estim Creat Clear Calc 66.70 Est GFR (MDRD) Af Amer 92 Est GFR (MDRD) Non-Af 76 BUN/Creatinine Ratio 13.8 Glucose 101 Calcium 8.9 Total Bilirubin 0.50 AST 23 ALT 36 Alkaline Phosphatase 50 Total Protein 6.7 Albumin 3.6 Globulin 3.1 Albumin/Globulin Ratio 1.2 Radiography Diagnostic Testing: Clinical Impression(s) from Imaging Studies Abdomen/Pelvis CT 09/30/23 19:07 IMPRESSION: Inflamed sigmoid colonic diverticula noted on prior examination appears slightly improved however there is a new inflamed diverticula near the splenic flexure. Distal transverse colonic thickening is also present with surrounding inflammatory change which could reflect developing colitis. There is questionable asymmetry colonic involvement as well. These changes are new. Electronically Signed: Jeovanny Lora MD at 19:28 EDT , There is still evidence of diverticulitis with slight improvement compared to image obtained September 19. However, patient now has new inflammatory changes splenic flexure. In light of the fact that she has peritoneal findings with little improvement and new findings will contact hospitalist for admission and IV antibiotics. Discharge Plan Triage Chief Complaint: GI Bleed ED Provider: Joseph Bal Dx/Rx/DC Orders Clinical Impression: History of breast cancer, Bloody diarrhea, External hemorrhoid, Acute diverticulitis, Failure of outpatient treatment Prescriptions: No Action ibuprofen 600 mg tablet 600 mg PO 4X/DAY PRN (Reason: mild to moderate pain) pantoprazole 40 mg tablet,delayed release (DR/EC) 40 tablet PO QODAY calcium citrate-vitamin D3 315 mg-5 mcg (200 unit) tablet 1 tab PO DAILY amitriptyline 25 mg tablet 25 mg PO DAILY Patient Comments: aspirin 81 MG tablet,chewable 81 mg PO DAILY@0800 quinapril [Accupril] 40 mg Tablet 40 mg PO DAILY Qty: 0 Multiple Vitamin, Womens 1 EACH tablet 1 tab PO DAILY acetaminophen 325 MG tablet 650 mg PO Q4H PRN PRN (Reason: Pain) Qty: 0 0RF pravastatin 40 mg tablet 80 mg PO DAILY Patient Comments: TAKE 1 TABLET BY MOUTH EVERY DAY ciprofloxacin HCl [ciprofloxacin HCl] 500 mg tablet 500 mg PO BID Qty: 14 0RF metronidazole 500 mg tablet 500 mg PO Q8H 7 Days Qty: 21 0RF hydrocodone-acetaminophen [hydrocodone-acetaminophen] 5-325 mg tablet 1 tab PO Q4H PRN PRN (Reason: Pain) 2 Days Qty: 10 0RF anastrozole 1 mg tablet 1 mg PO DAILY Qty: 90 1RF Primary Care Provider: Espinoza Lora Referrals: Espinoza Lora DO [Primary Care Provider] - Disposition Disposition: Acute Care Hospital [facility]
[2023-09-30] MEDS: Morphine 4 MG/ML Syringe IV (18:13)
[2023-09-30] MEDS: Ondansetron 4 MG/2 ML Vial IV (18:13)
[2023-09-30] MEDS: 0.9% Normal Saline (1000mL) 1,000 ML 150 ML IV (18:13)
[2023-09-30 18:36] LABS: Absolute Lymphocyte Count 1.39 X10^3/uL (0.83-4.51); Absolute Neutrophil Count 7.4 X10^3/uL (2.0-7.7); Basophil# 0.03 X10^3/uL; Basophil% 0.3 % (0-1); Eosinophil# 0.25 X10^3/uL; Eosinophils% 2.5 % (0-5); Hematocrit 39.1 % (37-47); Hemoglobin 12.6 g/dL (12.0-15.0); Lymphocyte # 1.39 X10^3/ul (0.83-4.51); Lymphocyte % 13.9 % (19-41); Mean Corp Hgb Conc 32.2 g/dL (32-36); Mean Corpuscular Hgb 27.2 pg (27.0-32.0); Mean Corpuscular Volume 84.4 fL (81-99); Mean Platelet Vol. 8.8 fl (6.2-12.0); Monocyte# 0.91 X10^3/uL; Monocyte% 9.1 % (0-10); NRBC Flagged by Analyzer 0 % (0-5); Neutrophil # 7.39 X10^3/uL (2.7-7.7); Neutrophil % 73.9 % (47-70); Platelet Count 360 K/mm3 (150-450); RBC Distribution Width CV 13.2 % (11.6-14.6); RBC Distribution Width SD 40.9 fl (35.1-43.9); Red Blood Count 4.63 M/mm3 (4.2-5.4)
[2023-09-30 18:47] LABS: ALB/GLOB Ratio 1.2 RATIO (0.9-2.4); AST(SGOT) 23 U/L (15-37); Alanine Aminotransfer ALT/SGPT 36 U/L (13-56); Albumin, Serum 3.6 g/dL (3.2-5.0); Alkaline Phosphatase 50 U/L (45-117); Anion Gap 5 (5-15); BUN 11 mg/dL (7-18); BUN/Creat Ratio 13.8 RATIO (10-20); Calcium,Total 8.9 mg/dL (8.5-10.1); Chloride 106 mmol/L (98-107); EST Glomerular Filtration Rate 76 mL/min (>60); Est Glom Filt Rate - Afr Amer 92 mL/min (>60); Globulin 3.1 g/dL (2.2-4.2); Glucose 101 mg/dL (74-106); Potassium 3.7 mmol/L (3.5-5.1); Protein, Total 6.7 g/dL (6.4-8.2); Sodium Level 139 mmol/L (136-145)
--- NOTE | 2023-09-30 19:07 | CT_ITS ---
INDICATION: Left lower quadrant abdominal pain, history divert EXAMINATION: CT ABDOMEN AND PELVIS WITH CONTRAST - CT Abdomen And Pelvis W/ Contrast Injection TECHNIQUE: Helically acquired images were obtained of the abdomen and pelvis following IV contrast. A radiation dose optimization technique was used for this scan. IV Contrast dosage and agent: 100 cc [id number] Oral contrast: None. COMPARISON: September 19. FINDINGS: LOWER CHEST: Basilar atelectasis or scarring. No cardiomegaly or pericardial effusion. LIVER: Homogeneous. No focal mass. Probable steatosis. GALLBLADDER AND BILIARY TREE: Mild nonspecific gallbladder prominence without obvious wall thickening or pericholecystic fluid. No intra- or extrahepatic biliary ductal dilation. PANCREAS: No focal cystic or solid mass. SPLEEN: Normal size without focal cystic or solid mass. ADRENAL GLANDS: No nodules. KIDNEYS AND URETERS: Normal renal size and position. No hydronephrosis. Renal cysts. PERITONEUM: Small free pelvic fluid. No other fluid collection. BOWEL: Diverticular disease. Inflamed diverticulum lateral to pancreatic tail image 31 series 2. This patient has thickening of the colon in the mid to distal transverse colon. There is some ascending colon diverticular disease although much of the ascending colon is collapsed and therefore not optimally evaluated. Question surrounding inflammatory change. No small bowel obstruction. LYMPH NODES: No enlarged mesenteric or retroperitoneal lymph nodes. VESSELS: Aorta is non-dilated. Atherosclerotic disease. URINARY BLADDER: Unremarkable. REPRODUCTIVE ORGANS: No pelvic masses. Hysterectomy. ABDOMINAL WALL: No discrete abdominal or pelvic wall hernia. BONES: No lytic or blastic abnormality. Degenerative changes of the spine are present. CT/Abdomen/Pelvis W IV Cont ONLY IMPRESSION: Inflamed sigmoid colonic diverticula noted on prior examination appears slightly improved however there is a new inflamed diverticula near the splenic flexure. Distal transverse colonic thickening is also present with surrounding inflammatory change which could reflect developing colitis. There is questionable asymmetry colonic involvement as well. These changes are new. Electronically Signed: Jeovanny Lora MD at 19:28 EDT ,
--- NOTE | 2023-09-30 19:50 | PCM.HP.STD ---
HPI - General General Date of Admission: 09/30/23 Date of Service: 09/30/23 Chief Complaint: Acute diverticulitis HPI Narrative KANIKA LOVELL, is a 67 F who presented to [facility] ED on 09/30/2023 with worsening lower abdominal pain with diarrhea concerning for recurrent diverticulitis. Saw patient at bedside in the ED. She was laying fairly comfortably in bed, conversing normally, in no acute distress. She stated that the pain and nausea medication she had been given on arrival have been helpful for her. She had not had any more episodes of diarrhea since arriving to the ED. Patient states she has a history of diverticulitis that was diagnosed about 10 to 15 years ago. States she has had about 7-8 episodes of diverticulitis over that timeframe. Her last colonoscopy was in 2020 when she was diagnosed with breast cancer, and she states that diverticulosis was noted but there were no other significant abnormalities. She does not remember who did her colonoscopy and does not follow regularly with a GI doctor. There has never been concern for inflammatory bowel disease that she is aware of. She was seen in our ED on 09/19 for the same concerns as today. CT abdomen pelvis showed mild diverticular disease with focal acute diverticulitis in the sigmoid colon. She was prescribed 7-day courses of p.o. Cipro and Flagyl as well as Percocet as needed for pain. Patient states she had good relief of symptoms until yesterday night when she acutely developed diarrhea again with lower abdominal pain. She does states she had small amounts of red blood in the stool this time. States she has not had blood like this in the stool in several years. She does have a history of hemorrhoids. Notably states her last episode of diverticulitis before these episodes was a few years ago. She does have intermittent constipation and takes stool softeners as needed at home. She is aware of which foods seem to trigger diverticulitis for her and tries to avoid these. CT abdomen pelvis today showed slight improvement in previously inflamed sigmoid colon diverticula from 09/19, however there is a new inflamed diverticulum near the splenic flexure, and there is distal transverse colonic thickening with surrounding inflammatory change concerning for colitis. Hemoglobin was 12.6, stable at baseline. Labs were otherwise fairly benign. Patient is afebrile and hemodynamically stable. Given recurrent diverticulitis with significant lower abdominal pain and failure of outpatient antibiotics, patient will be admitted for further management. [facility] Medical History Arthritis Breast cancer of lower-outer quadrant of left female breast Cancer Chest pain Former smoker GERD (gastroesophageal reflux disease) High cholesterol History of diverticulitis Injury of head and neck Lymphedema Osteoarthritis Osteopenia Restless legs Wears contact lenses Home Medications aspirin 81 mg chewable tablet 81 mg PO DAILY@0800 03/23/14 [History Last Taken 09/29/23] usxpmwfrrkdm-Mq-hfmr-minerals (Multiple Vitamin, Womens tablet) 1 tab PO DAILY 10/17/16 [History Last Taken 09/29/23] quinapril 40 mg tablet (Accupril) 10 mg PO DAILY #0 TABLETS 10/17/16 [History Last Taken 09/29/23] acetaminophen 325 mg tablet 650 mg (2 x 325 mg) PO Q4H PRN PRN Pain #0 tabs 10/19/16 [Rx Last Taken Unknown] calcium citrate 315 mg-vitamin D3 5 mcg (200 unit) tablet 1 tab PO DAILY 01/19/21 [History Last Taken 09/29/23] ibuprofen 600 mg tablet 600 mg PO 4X/DAY PRN mild to moderate pain 01/19/21 [History Last Taken Unknown] pantoprazole 40 mg tablet,delayed release 40 tablet PO QODAY 01/19/21 [History Last Taken 09/29/23] pravastatin 40 mg tablet 80 mg PO DAILY 09/27/21 [History Last Taken 09/29/23] anastrozole 1 mg tablet 1 mg PO DAILY #90 tabs 07/26/23 [Rx Last Taken Unknown] amitriptyline 25 mg tablet 25 mg PO DAILY 07/31/23 [History Last Taken 09/29/23] Allergy/AdvReac Type Severity Reaction Status Date / Time dexlansoprazole AdvReac Mild gi upset Verified 09/30/23 17:29 [From Dexilant] Family History Father Heart disease Myocardial infarction Mother Diabetes Brother Diabetes Sister Diabetes Surgical History History of appendectomy History of bilateral carpal tunnel release History of breast biopsy (~01/2021) History of cervical discectomy History of colonoscopy History of hysterectomy History of lumpectomy of left breast (~02/2021) History of repair of rectocele History of thumb surgery Social History Smoking Status: Former smoker Tobacco: How many years used: 20 second hand exposure: No details: occasionally substance use type: does not use rocco/hoahaoism: [employer]aritan seatbelt use: always do you feel safe at home: Yes ROS Constitutional Constitutional: Denies chills, fatigue, fever(s) or weakness Cardiovascular Cardiovascular: Denies chest pain Respiratory/Chest Respiratory/Chest: Denies shortness of breath at rest Gastrointestinal Gastrointestinal: Reports abdominal pain, diarrhea, hematochezia and nausea; Denies constipation or vomiting Vital Signs Vital Signs Vital Signs: 09/30/23 17:27 09/30/23 17:29 09/30/23 18:29 Temperature 97.6 F L 97.6 F L 98.6 F Temperature Source Temporal Temporal Temporal Pulse Rate 103 H 105 H 71 Respiratory Rate 16 16 16 Blood Pressure 114/81 H 114/81 H 135/89 H Blood Pressure Mean 92 92 104 Pulse Ox 94 95 99 Oxygen Delivery Method Room Air Room Air Room Air Weight Weight: 77.111 kg Body Mass Index (BMI) 29.2 Physical Exam Const alert, oriented x3, no apparent distress and average body habitus Constitutional Narrative: Pleasant elderly female, lying comfortably in bed, conversing normally, in no acute distress. General Appearance: cooperative and comfortable HEENT normocephalic, head/scalp atraumatic, hearing grossly normal bilaterally, nasal mucous membranes and turbinates normal and moist oral mucous membranes Eyes PERRL, EOMs intact bilaterally and conjunctivae normal Neck full ROM Chest inspection of chest normal Resp normal respiratory effort, normal air movement, no use of accessory muscles and clear to auscultation bilaterally Cardio regular rate, regular rhythm, no murmurs and peripheral pulses 2+ throughout GI GI Narrative: Mild tenderness palpation in lower middle and left side of abdomen. Abdomen otherwise nondistended and soft to palpation. Back/Spine normal ROM Extremity normal to inspection, full ROM and no pedal edema Skin no rashes or lesions noted Neuro moves all extremities and no focal motor deficits Speech: speech normal Psych mental status grossly normal Results Lab / Micro Data 09/30/23 18:15 09/30/23 18:15 Labs: Laboratory Results - last 24 hr 09/30/23 18:15: WBC 10.0, RBC 4.63, Hgb 12.6, Hct 39.1, MCV 84.4, MCH 27.2, MCHC 32.2, RDW Std Deviation 40.9, RDW Coeff of Shanda 13.2, Plt Count 360, MPV 8.8, Immature Gran % (Auto) 0.300, Neut % (Auto) 73.9 H, Lymph % (Auto) 13.9 L, [place] % (Auto) 9.1, Eos % (Auto) 2.5, Baso % (Auto) 0.3, Absolute Neuts (auto) 7.4, Absolute Lymphs (auto) 1.39, Nucleated RBC % 0, Sodium 139, Potassium 3.7, Chloride 106, Carbon Dioxide 28.0, Anion Gap 5, BUN 11, Creatinine 0.80, Estim Creat Clear Calc 66.70, Est GFR (MDRD) Af Amer 92, Est GFR (MDRD) Non-Af 76, BUN/Creatinine Ratio 13.8, Glucose 101, Calcium 8.9, Total Bilirubin 0.50, AST 23, ALT 36, Alkaline Phosphatase 50, Total Protein 6.7, Albumin 3.6, Globulin 3.1, Albumin/Globulin Ratio 1.2 Imaging Radiology Impression Abdomen/Pelvis CT 09/30/23 19:07 IMPRESSION: Inflamed sigmoid colonic diverticula noted on prior examination appears slightly improved however there is a new inflamed diverticula near the splenic flexure. Distal transverse colonic thickening is also present with surrounding inflammatory change which could reflect developing colitis. There is questionable asymmetry colonic involvement as well. These changes are new. Electronically Signed: Jeovanny Lora MD at 19:28 EDT , Assessment & Plan Assessment/Plan (1) Acute diverticulitis: PLAN: Plan Patient is a 67-year-old female who presented to [facility] ED on 09/30/2023 with recurrent diverticulitis. 1. Recurrent diverticulitis, concern for small anal fissure ? Admit under inpatient status to [facility]. Hemoglobin stable at baseline, suspect small blood in stool may be either from mild diverticular bleed versus small bleed from possible anal fissure. Trend daily CBC. Stool PCR ordered. Given previous history of diverticulitis and previous colonoscopy with no findings concerning for IBD per patient, will hold on collecting labs for IBD workup. Will treat with IV Zosyn for now. Pain control with p.o. oxycodone as needed and IV Dilaudid as needed. Zofran as needed for nausea. Continue maintenance IV fluids through tomorrow morning. Clear liquid diet for now. Will hold on GI or surgery consults at this time but low threshold to get them involved if needed. Chronic medical conditions: ? History of breast cancer: Follows with Dr. Cortez with Oncology, last office visit in July. Stable. Continue home anastrozole. ? Hypertension: Pressures borderline low on admit, given IV fluid resuscitation as noted above. Will hold home quinapril for now, restart as needed. ? Hyperlipidemia: Continue home statin. ? History of TIA: Continue home aspirin. ? GERD: Continue home PPI. DVT prophylaxis: Lovenox CODE STATUS: Full code, verified Expected disposition: Home, 2 to 3 days Total clinical time spent by myself addressing the patient's medical issues, reviewing all the data, and collaborating with patient's care team: 55 minutes. Charges/Coding Visit Charges Inpatient E&M: 22593 Init Hosp L2
[2023-09-30] MEDS: Piperacil/Tazobactam 4.5 GM in 0.9% Normal Saline (100mL MB+) 100 ML IV (19:59)
[2023-09-30] MEDS: oxyCODONE 5 MG Tablet PO (21:47)
[2023-09-30] MEDS: Acetaminophen 325 MG Tablet 650 MG PO (21:47)
[2023-09-30] MEDS: Pravastatin 80 MG Tablet PO (21:49)
[2023-09-30] MEDS: Amitriptyline 25 MG Tablet PO (21:49)
[2023-10-01] VITALS (7 sets, daily range): BP systolic 106–153; BP diastolic 64–84; PULSE 63–77; RESP 16–18; TEMP 36.5–37.1; O2SAT 93–97
[2023-10-01 04:51] LABS: Hematocrit 34.9 % (37-47); Hemoglobin 11.1 g/dL (12.0-15.0); Mean Corp Hgb Conc 31.8 g/dL (32-36); Mean Corpuscular Hgb 27.2 pg (27.0-32.0); Mean Corpuscular Volume 85.5 fL (81-99); Mean Platelet Vol. 8.9 fl (6.2-12.0); Platelet Count 300 K/mm3 (150-450); RBC Distribution Width CV 13.5 % (11.6-14.6); RBC Distribution Width SD 42.5 fl (35.1-43.9); Red Blood Count 4.08 M/mm3 (4.2-5.4); White Blood Count 7.7 K/mm3 (4.4-11.0)
[2023-10-01 05:36] LABS: Anion Gap 4 (5-15); BUN 8 mg/dL (7-18); BUN/Creat Ratio 10.5 RATIO (10-20); Calcium,Total 8.1 mg/dL (8.5-10.1); Chloride 108 mmol/L (98-107); Creatinine, Serum 0.76 mg/dL (0.55-1.02); EST Glomerular Filtration Rate 80 mL/min (>60); Est Glom Filt Rate - Afr Amer 97 mL/min (>60); Estimated Creatinine Clearance 66.32 ml/min; Glucose 105 mg/dL (74-106); Potassium 3.5 mmol/L (3.5-5.1); Sodium Level 139 mmol/L (136-145)
[2023-10-01] MEDS: Piperacil/Tazobactam 3.375 GM in 0.9% Normal Saline (50mL MB+) 50 ML IV ×3 (06:41→21:38)
[2023-10-01] MEDS: Acetaminophen 325 MG Tablet 650 MG PO ×2 (06:41→21:38)
--- NOTE | 2023-10-01 07:42 | PN.HOSP_ITS ---
Reason for Visit Reason for Visit: Diagnoses Diverticulitis of intestine, part unspecified, without perforation or abscess w ithout bleeding (09/30/23) Subjective Subjective Feeling better. Patient had completed treatment for diverticulitis and was doing well up until last night where she had left upper quadrant abdominal pain followed by diarrhea hematochezia. She stated that she did not have that with her bout of diverticulitis earlier this month. Objective Data Objective Data Vital Signs: Vital Signs Temp Pulse Resp BP Pulse Ox O2 Del Method 36.5 C L 75 18 126/84 H 95 Room Air 10/01/23 06:38 10/01/23 06:38 10/01/23 06:38 10/01/23 06:38 10/01/23 06:38 10/01/23 06:38 Oxygen Delivery Method Room Air Weight: 76.2 kg Body Mass Index (BMI) 28.8 Intake & Output: Intake and Output for Last 24 Hours 09/29/23 09/30/23 10/01/23 23:59 23:59 23:59 Intake Total 100 / 100 1000 / 1000 Balance 100 / 100 1000 / 1000 Lab / Micro Data 10/01/23 04:17 10/01/23 04:17 Labs: Laboratory Results - last 24 hr 09/30/23 18:15: WBC 10.0, RBC 4.63, Hgb 12.6, Hct 39.1, MCV 84.4, MCH 27.2, MCHC 32.2, RDW Std Deviation 40.9, RDW Coeff of [place] 13.2, Plt Count 360, MPV 8.8, Immature Gran % (Auto) 0.300, Neut % (Auto) 73.9 H, Lymph % (Auto) 13.9 L, [place] % (Auto) 9.1, Eos % (Auto) 2.5, Baso % (Auto) 0.3, Absolute Neuts (auto) 7.4, Absolute Lymphs (auto) 1.39, Nucleated RBC % 0, Sodium 139, Potassium 3.7, Chloride 106, Carbon Dioxide 28.0, Anion Gap 5, BUN 11, Creatinine 0.80, Estim Creat Clear Calc 66.70, Est GFR (MDRD) Af Amer 92, Est GFR (MDRD) Non-Af 76, BUN/Creatinine Ratio 13.8, Glucose 101, Calcium 8.9, Total Bilirubin 0.50, AST 23, ALT 36, Alkaline Phosphatase 50, Total Protein 6.7, Albumin 3.6, Globulin 3.1, Albumin/Globulin Ratio 1.2 10/01/23 04:17: WBC 7.7, RBC 4.08 L, Hgb 11.1 L, Hct 34.9 L, MCV 85.5, MCH 27.2, MCHC 31.8 L, RDW Std Deviation 42.5, RDW Coeff of Shanda 13.5, Plt Count 300, MPV 8.9, Sodium 139, Potassium 3.5, Chloride 108 H, Carbon Dioxide 27.0, Anion Gap 4 L, BUN 8, Creatinine 0.76, Estim Creat Clear Calc 66.32, Est GFR (MDRD) Af Amer 97, Est GFR (MDRD) Non-Af 80, BUN/Creatinine Ratio 10.5, Glucose 105, Calcium 8.1 L Radiography Diagnostic Testing: Radiology Impression Abdomen/Pelvis CT 09/30/23 19:07 IMPRESSION: Inflamed sigmoid colonic diverticula noted on prior examination appears slightly improved however there is a new inflamed diverticula near the splenic flexure. Distal transverse colonic thickening is also present with surrounding inflammatory change which could reflect developing colitis. There is questionable asymmetry colonic involvement as well. These changes are new. Electronically Signed: Jeovanny Lora MD at 19:28 EDT , Physical Exam Const alert and no apparent distress HEENT head/scalp atraumatic Eyes Eyes Narrative: no icterus. Resp normal respiratory effort, no retractions, no use of accessory muscles and clear to auscultation bilaterally Cardio regular rate, regular rhythm, S1 normal heart sound and S2 normal heart sound GI normal to inspection, nondistended, normoactive bowel sounds, soft to palpation and non-distended GI Narrative: Left lower quadrant abdominal pain. Extremity normal to inspection and full ROM Neuro moves all extremities and no focal motor deficits Sensorium / Orientation: awake and alert Speech: speech normal Psych affect normal Assessment & Plan Assessment/Plan (1) Acute diverticulitis: PLAN: Plan Colitis * recurrent diverticulitis v ischemic colitis. Less likely C diff colitis. Doubt IBD. * I favor ischemic colitis given the severe abdominal pain and bleeding, inflammation at splenic flexure. Additionally, her symptoms were different from when she had diverticulitis earlier this month. She states that she did feel better with the abx and had completed them days before this presentation. * continue with pip/tazo * check stool for enteric pathogens and C. diff since she recently completed abx for diverticulitis. * Advance diet as tolerated. GI bleed * likely 2/2 colitis (I suspect ischemic given location at splenic flexure) * currently resolved * if bleeding recurs, consider CTA A/P * if no further events, recommend follow up with GI for colonoscopy. Hypokalemia, mild * replace * follow up in AM. Chronic medical conditions: ? History of breast cancer: Follows with Dr. Cortez with Oncology, last office visit in July. Stable. Continue home anastrozole. ? Hypertension: Pressures borderline low on admit, given IV fluid resuscitation as noted above. Will hold home quinapril for now, restart as needed. ? Hyperlipidemia: Continue home statin. ? History of TIA: Continue home aspirin. ? GERD: Continue home PPI. DVT prophylaxis: SCDs. DC enoxaparin given GI bleed. CODE STATUS: Full code, verified Expected disposition: Home in 1-2 more days. Charges/Coding Visit Charges Inpatient E&M: 94457 Subs Hosp L3
[2023-10-01] MEDS: Potassium Chloride Oral Tablet 20 MEQ 40 MEQ PO (08:22)
[2023-10-01] MEDS: Aspirin 81 MG TAB.CHEW PO (08:22)
[2023-10-01] MEDS: Pantoprazole Sodium 40 MG Tablet PO (08:23)
[2023-10-01] MEDS: Anastrozole 1 MG TABLET PO (08:23)
[2023-10-01] MEDS: Pravastatin 80 MG Tablet PO (21:37)
[2023-10-01] MEDS: 0.9% Saline Lock 10 ML Syringe IV (21:37)
[2023-10-01] MEDS: Amitriptyline 25 MG Tablet PO (21:38)
[2023-10-02 04:56] VITALS: BP 129/78; PULSE 70; RESP 18; TEMP 36.8; O2SAT 94
[2023-10-02] MEDS: Piperacil/Tazobactam 3.375 GM in 0.9% Normal Saline (50mL MB+) 50 ML IV (05:03)
[2023-10-02 05:41] LABS: Absolute Lymphocyte Count 1.35 X10^3/uL (0.83-4.51); Absolute Neutrophil Count 4.9 X10^3/uL (2.0-7.7); Basophil# 0.05 X10^3/uL; Basophil% 0.7 % (0-1); Eosinophil# 0.38 X10^3/uL; Eosinophils% 5.2 % (0-5); Hematocrit 35.4 % (37-47); Hemoglobin 11.1 g/dL (12.0-15.0); Lymphocyte # 1.35 X10^3/ul (0.83-4.51); Lymphocyte % 18.5 % (19-41); Mean Corp Hgb Conc 31.4 g/dL (32-36); Mean Corpuscular Hgb 26.7 pg (27.0-32.0); Mean Corpuscular Volume 85.1 fL (81-99); Mean Platelet Vol. 8.9 fl (6.2-12.0); Monocyte# 0.62 X10^3/uL; Monocyte% 8.5 % (0-10); NRBC Flagged by Analyzer 0 % (0-5); Neutrophil # 4.87 X10^3/uL (2.7-7.7); Neutrophil % 66.7 % (47-70); Platelet Count 304 K/mm3 (150-450); RBC Distribution Width CV 13.4 % (11.6-14.6); RBC Distribution Width SD 41.9 fl (35.1-43.9); Red Blood Count 4.16 M/mm3 (4.2-5.4); White Blood Count 7.3 K/mm3 (4.4-11.0)
[2023-10-02 06:04] LABS: Anion Gap 4 (5-15); BUN 5 mg/dL (7-18); BUN/Creat Ratio 6.7 RATIO (10-20); Calcium,Total 8.3 mg/dL (8.5-10.1); Chloride 108 mmol/L (98-107); Creatinine, Serum 0.74 mg/dL (0.55-1.02); EST Glomerular Filtration Rate 82 mL/min (>60); Est Glom Filt Rate - Afr Amer 100 mL/min (>60); Estimated Creatinine Clearance 66.32 ml/min; Glucose 96 mg/dL (74-106); Potassium 3.8 mmol/L (3.5-5.1); Sodium Level 139 mmol/L (136-145)
[2023-10-02 08:08] VITALS: BP 146/74; PULSE 75; RESP 16; TEMP 36.7; O2SAT 100
[2023-10-02] MEDS: Aspirin 81 MG TAB.CHEW PO (08:23)
[2023-10-02] MEDS: Anastrozole 1 MG TABLET PO (08:24)
--- NOTE | 2023-10-02 11:45 | CASEMGMT ---
RN ERIN Assessment Face to Face with patient for initial transition planning/care coordination assessment. RN CM introduced self and role at [facility], pt voices understanding. Pt is A&Ox4 and is resting comfortably in bed and is calm. Care providers, pharmacy, and demographics verified. Admitting dx: Acute Diverticulitis PCP: Geno Specialists: Diego Preferred Pharmacy: [facility] Insurance: [employer], [facility] Prescription Benefit: Yes LNOK: Bernadette Mcrae (Sister) Living Arrangements: Pt lives with her 40 y/o son in a single level mobile home with 4-5 steps to enter with handrails ADLs/IADLs: Ind Transportation: Self, son DME: BP cuff. FWW but does not use. Denies all other DME uses or needs HHC/SNF: Denies history or needs Pt?s goal: Home no needs Plan: 6-click is 24. Pt wishes to return home once medically ready and denies further concerns at this time. CM to follow for safe DC from [facility]. Joyce Mcrae RN, CM
--- NOTE | 2023-10-02 12:56 | PCM.DC.SUM ---
Providers Date of Admission: 09/30/23 Date of Discharge: 10/02/23 Primary Care Physician: Dr. Espinoza Lora DO Reason For Visit: ACUTE DIVERTICULITIS Diagnosis Discharge Diagnosis (1) Acute diverticulitis: Status: Acute Code(s): K57.92 - Diverticulitis of intestine, part unspecified, without perforation or abscess without bleeding Medications at Discharge Home Medications aspirin 81 mg chewable tablet 81 mg PO DAILY@0800 03/23/14 gskykyagvcry-Kr-igzz-minerals (Multiple Vitamin, Womens tablet) 1 tab PO DAILY 10/17/16 quinapril 40 mg tablet (Accupril) 10 mg PO DAILY #0 TABLETS 10/17/16 acetaminophen 325 mg tablet 650 mg (2 x 325 mg) PO Q4H PRN PRN Pain #0 tabs 10/19/16 calcium citrate 315 mg-vitamin D3 5 mcg (200 unit) tablet 1 tab PO DAILY 01/19/21 ibuprofen 600 mg tablet 600 mg PO 4X/DAY PRN mild to moderate pain 01/19/21 pantoprazole 40 mg tablet,delayed release 40 tablet PO QODAY 01/19/21 pravastatin 40 mg tablet 80 mg PO DAILY 09/27/21 anastrozole 1 mg tablet 1 mg PO DAILY #90 tabs 07/26/23 amitriptyline 25 mg tablet 25 mg PO DAILY 07/31/23 ciprofloxacin HCl 500 mg tablet 500 mg PO BID #10 tabs 10/02/23 metronidazole 500 mg tablet 500 mg PO Q8H #15 tabs 10/02/23 Hospital Course Operations None Procedures None Summary of Care Provided Minutes Spent on Discharge: 45 Hospital Course: Patient is a 67-year-old female with a past medical history as outlined was admitted through the ED on 09/30/2023 with a complaint of worsening abdominal pain with diarrhea. She had a history of diverticular disease and had had diverticulitis several times over the last few years. Her last colonoscopy was in 2020 which she says showed diverticulosis but there were no other significant abnormalities. She was seen in the ED on 09/20/2023 for similar complaints of abdominal pain and diarrhea. CAT scan of the abdomen and pelvis done showed mild diverticular disease with focal acute diverticulitis in the sigmoid colon so she was prescribed p.o. ciprofloxacin and metronidazole and discharged home. However his symptoms recurred the day before admission when she developed diarrhea with lower abdominal pain. She also had some bleeding per rectum. On admission CT of the abdomen and pelvis done showed slight improvement in previously inflamed sigmoid colon but with new inflamed diverticulum near the splenic flexure with transverse distal colonic thickening with surrounding inflammatory change concerning for colitis. WBC was not elevated. She was admitted and managed for acute diverticulitis. She was initially kept n.p.o. and started on IV Zosyn. She was hydrated with IV fluids. Her pain gradually improved and she felt much better. She was placed on a soft diet which she tolerated. Patient requested to go home. He was discharged on 09/22/2023 on p.o. ciprofloxacin and p.o. metronidazole for 5 days. She is follow-up with her primary care doctor within 1 to 2 weeks and counseled to advance her diet slowly as tolerated from soft diet to regular diet at home. She was counseled to eat a diet rich in fiber to help with regular bowel movements to decrease the risk of diverticulitis. Patient seen and examined prior to discharge. She felt much better and had no complaints. He had an uneventful night. Review of systems otherwise negative. Labs and vitals reviewed. Home medication reviewed and reconciled. Physical Exam Const alert, oriented x3 and no apparent distress General Appearance: cooperative, comfortable and well kempt Orientation / Consciousness: awake Exam Limitations: no limitations HEENT normocephalic, head/scalp atraumatic, hearing grossly normal bilaterally and moist oral mucous membranes Mouth: oral and palatal mucosa normal Eyes PERRL, EOMs intact bilaterally and conjunctivae normal Neck no lymphadenopathy and supple Resp normal respiratory effort, no retractions, no use of accessory muscles and clear to auscultation bilaterally Cardio regular rate, regular rhythm, S1 normal heart sound, S2 normal heart sound and no murmurs GI normal to inspection, nondistended, normoactive bowel sounds, soft to palpation and non-tender Extremity normal to inspection, full ROM and no clubbing, cyanosis or edema Skin no rashes or lesions noted and no wounds Neuro oriented x3, CN's II-XII intact bilaterally, moves all extremities, no focal motor deficits and no sensory deficits noted Sensorium / Orientation: awake and alert Motor Exam: strength 5/5 throughout Psych affect normal Weight / BMI Weight Weight: 167 lb 15.876 oz Body Mass Index (BMI) 28.8 ABG / Lab / Microbiology Data 10/02/23 05:18 10/02/23 05:18 Laboratory: Laboratory Results - last 24 hr 10/02/23 05:18: WBC 7.3, RBC 4.16 L, Hgb 11.1 L, Hct 35.4 L, MCV 85.1, MCH 26.7 L, MCHC 31.4 L, RDW Std Deviation 41.9, RDW Coeff of Shanda 13.4, Plt Count 304, MPV 8.9, Immature Gran % (Auto) 0.400, Neut % (Auto) 66.7, Lymph % (Auto) 18.5 L, [place] % (Auto) 8.5, Eos % (Auto) 5.2 H, Baso % (Auto) 0.7, Absolute Neuts (auto) 4.9, Absolute Lymphs (auto) 1.35, Nucleated RBC % 0, Sodium 139, Potassium 3.8, Chloride 108 H, Carbon Dioxide 27.0, Anion Gap 4 L, BUN 5 L, Creatinine 0.74, Estim Creat Clear Calc 66.32, Est GFR (MDRD) Af Amer 100, Est GFR (MDRD) Non-Af 82, BUN/Creatinine Ratio 6.7 L, Glucose 96, Calcium 8.3 L D/C Instructions Discharge Diet: Low fat / Low cholesterol Discharge Activity: Return to Normal Activity Weight Bearing Status: Weight bearing as tolerated Call your doctor if you observe: Fever of 101 or Higher, Shortness of breath, Dizziness, Swelling in the ankles and Chest pain Meaningful Use Info Meaningful Use Meaningful Use Diagnoses (Choose all that apply): None applicable Ischemic Stroke Statin Dosing Therapy Reference: STATIN DOSE THERAPY REFERENCE: * Patients > 75 years receive moderate or high dose statin therapy. * Patients 75 years or YOUNGER should receive HIGH intensity statin dose unless contraindicated. You will be required to document reason for non-treatment if statin daily dose does not meet guidelines. HIGH DOSE STATIN THERAPY DAILY Atorvastatin > than or = to 40 mg Rosuvastatin > than or = to 20 mg Amlodipine + Atorvastatin > than or = to 2.5/40 mg Ezetimibe + Simvastatin 10/80 mg Simvastatin 80mg Discharge Plan Admission Admit Date/Time: 09/30/23 19:58 Primary Reason for Your Visit: acute diverticulitis Attending Provider: Shena Swanson Primary Care Provider: Espinoza Lora Consulting Providers: Maverick Sullivan; Jason Weinberg Instructions Patient Instructions: Diverticulitis Dc Additional Instructions / Restrictions: counseled to eat a diet rich in fiber Discharge Orders/Prescriptions Prescriptions: New ciprofloxacin HCl 500 mg tablet 500 mg PO BID Qty: 10 0RF metronidazole 500 mg tablet 500 mg PO Q8H Qty: 15 0RF Continued ibuprofen 600 mg tablet 600 mg PO 4X/DAY PRN (Reason: mild to moderate pain) pantoprazole 40 mg tablet,delayed release (DR/EC) 40 tablet PO QODAY calcium citrate-vitamin D3 315 mg-5 mcg (200 unit) tablet 1 tab PO DAILY amitriptyline 25 mg tablet 25 mg PO DAILY Patient Comments: aspirin 81 MG tablet,chewable 81 mg PO DAILY@0800 quinapril [Accupril] 40 mg Tablet 10 mg PO DAILY Qty: 0 Patient Comments: Per pt, her Family Doc is decreasing dose to 10mg. Multiple Vitamin, Womens 1 EACH tablet 1 tab PO DAILY acetaminophen 325 MG tablet 650 mg PO Q4H PRN PRN (Reason: Pain) Qty: 0 0RF pravastatin 40 mg tablet 80 mg PO DAILY Patient Comments: TAKE 1 TABLET BY MOUTH EVERY DAY anastrozole 1 mg tablet 1 mg PO DAILY Qty: 90 1RF Referrals / Follow Up: Espinoza Lora DO [Primary Care Provider] - Within 1 Week Disposition Disposition (needs filled in before D/C Order can be placed): Home, Self Care Charges/Coding Visit Charges Inpatient E&M: 82456 Disch Hosp >30min
== END 2023-10-02 13:00 | disposition home or self-care (01) | DRG 379 ==
LOC: ED 19:45 → MS3 20:16
PROVIDERS: Admitting Provider Hospitalist; Emergency Provider Emergency Medicine; PCP Preventive Medicine Occupational Medicine; Visit Provider Student in an Organized Health Care Education/Training Program
DX: K57.33 Diverticulitis of large intestine without perforation or abscess with bleeding (principal); E78.00 Pure hypercholesterolemia, unspecified; I10 Essential (primary) hypertension; K21.9 Gastro-esophageal reflux disease without esophagitis; E87.6 Hypokalemia; K60.2 Anal fissure, unspecified; Z79.811 Long term (current) use of aromatase inhibitors; Z87.891 Personal history of nicotine dependence; Z85.3 Personal history of malignant neoplasm of breast; Z79.899 Other long term (current) drug therapy; Z90.49 Acquired absence of other specified parts of digestive tract; Z90.710 Acquired absence of both cervix and uterus; Z86.73 Personal history of transient ischemic attack (TIA), and cerebral infarction without residual deficits
CPT/HCPCS: 36415; 74177; 80048; 80053; 85025; 85027; 99285; J7030; Q9967; A4216; J2405

== ENCOUNTER → 2024-06-28 | Outpatient (CLI) | payer MEDICARE, OTHER, SELFPAY ==
--- NOTE | 2024-06-28 12:32 | BI_ITS ---
MAMMOGRAPHY - BILATERAL SCREENING REASON FOR EXAM: Female, 68 years old. Routine annual screening examination. PERTINENT HISTORY: Personal history of breast cancer. History of prior left lumpectomy. Prior bilateral breast reduction. TECHNIQUE: Digital bilateral breast yuridia (3D mammographic acquisition) in the CC and MLO projections. 2-D mediolateral oblique (MLO) and craniocaudad (CC) views of both breasts were obtained. CAD: Full Field Digital Mammography with Computer Added Detection was performed. COMPARISON: Comparison is made with prior study dated June 26, 2023 and December 15, 2022. FINDINGS: Breast Composition: The breasts are heterogeneously dense, which may obscure small masses. There are no dominant masses or suspicious calcifications. Status post left lumpectomy and left axillary surgery. No other significant abnormalities are identified. There has been no significant change since the prior study. BI/SCRN MAMM (CAD)W/YURIDIA BILAT IMPRESSION: Stable bilateral screening mammogram. Yearly follow-up mammogram recommended. (A) ASSESSMENT CATEGORY: BIRADS Category 2: Benign. A letter regarding these results will be sent to the patient by the facility within 30 days. Approximately 10% of breast cancers are not detected by mammography. A normal mammogram should not delay biopsy of a clinically suspicious abnormality. [id number] Electronically Signed: Nathaniel Lundy MD at 13:30 EST ,
== END | disposition home or self-care (01) ==
LOC: OPBI 12:32
PROVIDERS: PCP Preventive Medicine Occupational Medicine; Referring Provider Student in an Organized Health Care Education/Training Program; Visit Provider Student in an Organized Health Care Education/Training Program
DX: Z12.31 Encounter for screening mammogram for malignant neoplasm of breast (principal); Z85.3 Personal history of malignant neoplasm of breast
CPT/HCPCS: 77063; 77067

== ENCOUNTER 2024-09-21 21:08 | Emergency (ER) | payer MEDICARE, OTHER, SELFPAY ==
[2024-09-21 21:09] VITALS: BP 158/84; PULSE 96; RESP 17; TEMP 36.7; O2SAT 94; BMI 28.6
--- NOTE | 2024-09-21 21:20 | CT_ITS ---
PROCEDURE: ABDOMEN/PELVIS W IV CONT ONLY 09/21/2024 REASON FOR EXAM: DIFFUSE ABD PAIN HX OF DIVERTICULITIS TECHNIQUE: Abdomen and pelvis CT with intravenous contrast. Coronal and Sagittal reconstruction series were provided. PATIENT PREPARATION: Per protocol ORAL CONTRAST TYPE: None. AMOUNT: mL CONTRAST: Isovue 370 VOLUME: 82 mL Not Provided Gauge IV One or more dose reduction techniques were used (e.g., Automated exposure control, adjustment of the mA and/or kV according to patient size, use of iterative reconstruction technique. RADIATION DOSE SUMMARY: CTDlvol: 27 mGy DLP: 889 mGycm COMPARISON: None FINDINGS: Lung bases: Mild dependent atelectasis Liver: Normal size. No mass. Gallbladder: Unremarkable Spleen: Normal size. Pancreas: Normal size without evidence of mass surrounding inflammation or ductal dilation. Adrenals: Unremarkable Kidneys: 2.6 cm left renal cysts. No evidence of hydronephrosis. Right kidney demonstrates a small parenchyma low attenuating lesion, too small to characterize. Bladder: Unremarkable Reproductive Organs: Status post hysterectomy. Bowel: Sigmoid diverticulosis with focal wall thickening and luminal narrowing and adjacent stranding, consistent with acute sigmoid diverticulitis. The remaining large bowel is grossly unremarkable. No inflammatory changes of the small bowel. Stomach is decompressed. Appendix: Not visualized. Lymph nodes: No lymphadenopathy. Vasculature: Mild diffuse atherosclerotic calcifications are noted. Peritoneum / Retroperitoneum: No free air or free fluid. Bones: Degenerative changes of the lumbar spine. CT/Abdomen/Pelvis W IV Cont ONLY IMPRESSION: Findings consistent with acute sigmoid diverticulitis. No abscess formation or free air. Reading Location: [place]
--- NOTE | 2024-09-21 21:24 | ED.VIS.GI ---
HPI HPI - GI History of Present Illness Chief Complaint: Abd Pain Informant: patient Abdominal Pain/Flank Pain Onset: Today and Yesterday Context: Gradual Onset Timing: Continuous Quality: Sharp and Stabbing Location: RLQ and LLQ Current Severity: Moderate Maximum Severity: Moderate Nausea/Vomiting/Emesis GI Symptom: Negative for Nausea or Vomiting Diarrhea/Melena/Hematochezia GI Symptom: Negative for Diarrhea, Melena or Hematochezia Associated Symptoms Associated Symptoms: Negative for Dysuria, Frequency, Hematuria or Urgency Narrative Narrative: 68-year-old female complaining of bilateral lower quadrant abdominal pain. History diverticulitis. Think she has diverticulitis again. Pain started on Monday. She denies any nausea, vomiting, diarrhea or constipation. No dysuria. No fever. She has had a prior appendectomy and hysterectomy. Prior similar symptoms: Yes Recent Illness/Hospitalization: No PFSH PFS Medical History Hypercalcemia History of breast cancer External hemorrhoid Chest pain Osteopenia Lymphedema Breast cancer of lower-outer quadrant of left female breast Wears contact lenses Cancer Arthritis High cholesterol Injury of head and neck Restless legs History of diverticulitis Former smoker Osteoarthritis GERD (gastroesophageal reflux disease) Home Medications ?Medication ?Instructions ?Recorded ?Last Taken ?Type aspirin 81 mg chewable tablet 81 mg PO DAILY@0800 03/23/14 09/29/23 History itjmwciagkqv-Gb-dchj-minerals 1 tab PO DAILY 10/17/16 09/29/23 History (Multiple Vitamin, Womens tablet) acetaminophen 325 mg tablet 650 mg (2 x 325 mg) PO Q4H PRN PRN 10/19/16 Unknown Rx Pain #0 tabs ibuprofen 600 mg tablet 600 mg PO 4X/DAY PRN mild to 01/19/21 Unknown History moderate pain pantoprazole 40 mg tablet,delayed 40 tablet PO QODAY 01/19/21 09/29/23 History release pravastatin 40 mg tablet 80 mg PO DAILY 09/27/21 09/29/23 History amitriptyline 25 mg tablet 25 mg PO DAILY 07/31/23 09/29/23 History anastrozole 1 mg tablet 1 mg PO DAILY #90 TABLETS 01/01/24 Unknown Rx amitriptyline 50 mg tablet 50 mg PO QHS 09/21/24 Unknown History ciprofloxacin HCl 500 mg tablet 500 mg PO BID 10 days #20 tabs 09/21/24 Unknown Rx (Cipro) hydrocodone-acetaminophen 5-325mg 1 tab PO Q4H PRN PRN Pain 3 days 09/21/24 Unknown Rx 5mg-325mg #12 TABLETS metronidazole 500 mg tablet 500 mg PO TID 10 days #30 tabs 09/21/24 Unknown Rx nortriptyline 25 mg capsule 25 - 50 mg PO QHS 09/21/24 Unknown History Allergy/AdvReac Type Severity Reaction Status Date / Time dexlansoprazole (From AdvReac Mild gi upset Verified 09/21/24 21:12 Dexilant) Family History Father Heart disease Myocardial infarction Mother Diabetes Brother Diabetes Sister Diabetes Surgical History History of lumpectomy of left breast (~02/2021) History of repair of rectocele History of breast biopsy (~01/2021) History of colonoscopy History of cervical discectomy History of appendectomy History of bilateral carpal tunnel release History of thumb surgery History of hysterectomy Social History Smoking Status: Former smoker Tobacco: How many years used: 20 second hand exposure: No details: occasionally substance use type: does not use rocco/rastafarian: [employer] seatbelt use: always do you feel safe at home: Yes ROS ROS ED ROS Narrative Abdominal pain. Denies vomiting, diarrhea, fever or dysuria. Constitutional Constitutional ED: Denies chills or fever(s) ENT ENT ED: Denies ear pain Cardiovascular Cardiovascular: Denies chest pain Respiratory/Chest Respiratory/Chest: Denies cough or dyspnea Gastrointestinal Gastrointestinal: Reports abdominal pain; Denies constipation, diarrhea, melena, nausea or vomiting Genitourinary Genitourinary ED: Denies dysuria or hematuria Musculoskeletal Musculoskeletal: Denies arthralgias or back pain Integumentary Denies abscess Neurologic Neurologic: Denies headache(s) Psychiatric Psychiatric: Denies anxiety Endocrine Endocrinology: Denies polydipsia Hematologic/Lymphatic Hematologic/Lymphatic: Denies easy bleeding Allergic/Immunologic Allergic/Immunologic ED: Denies mouth swelling, tongue swelling or urticaria EXAM Physical Exam Narrative Exam Narrative: 68-year-old female sitting upright in bed. Vital signs are stable afebrile. She does not appear septic nor toxic nor significantly dehydrated. She is no distress. She drove herself to the ER. H EENT exam pupils round react light. Moist with membranes. Neck nontender no lymphadenopathy. Lungs clear to auscultation bilaterally. Heart regular rhythm rate about 95 no murmur. Chest wall and ribs nontender. Abdomen soft nondistended normal bowel sounds without peritoneal signs. She does have bilateral lower quadrant tenderness. No hernia or mass. No obstruction. No pulsatile mass. Moving all 4 extremities. Nontender no edema. Back nontender. Neurologically she is awake alert. Answering questions following commands. Const Vital Signs: 09/21/24 21:09 Temperature 98.1 F Temperature Source Temporal Pulse Rate 96 Respiratory Rate 17 Blood Pressure 158/84 H Blood Pressure Mean 108 Pulse Ox 94 Oxygen Delivery Method Room Air Positive well nourished and well developed; Negative for cachectic, contractures or unkempt General Appearance ED: well developed and NAD; Negative for unkempt, cachectic, contractures or pallor Nutritional Appearance: Negative for cachectic HEENT Reports moist mucous membranes normocephalic and atraumatic Eyes PERRL and EOMs intact bilaterally Neck no lymphadenopathy, supple and no JVD Resp normal respiratory effort and clear to auscultation bilaterally Cardio regular rate, regular rhythm, S1 normal heart sound, S2 normal heart sound and no murmurs GI non-distended and no masses; Negative for non-tender GI Narrative: Bilateral lower quadrant tenderness. No hernia or mass. No pulsatile mass. No obstruction. Auscultation: normoactive bowel sounds Palpation: soft and tender; Negative for guarding, rigid, hepatomegaly, splenomegaly, hernia, mass, pulsatile mass or rebound tenderness present Back/Spine no CVA tenderness General Back: Negative for CVA tenderness Cervical Spine: Negative for cervical spine tenderness Thoracic Spine / Upper Back: Negative for thoracic spinal tenderness Lumbar Spine / Lower Back: Negative for lumbar spinal tenderness Extremity full ROM General Extremety ED: Negative for edema or tenderness General Extremity: Negative for edema Neuro CN's II-XII intact bilaterally and moves all extremities Sensorium / Orientation: alert, oriented to person, oriented to place and oriented to time; Negative for orientation impaired, confused or lethargic Motor Exam: strength 5/5 throughout Psych mental status grossly normal and thought process normal Appearance: Negative for unkempt Attitude: No agitated Mood & Affect: Negative for depressed, anxious or tearful Skin no wounds General Skin Exam: Negative for jaundice or pallor Lesions: no lesions Rashes: no rashes Trauma: Negative for abrasion Nails: Negative for discolored MDM MDM MDM Narrative Medical decision making narrative: 68-year-old female complaining of lower abdominal pain with a history of diverticulitis which she thinks this is the same. CAT scan labs are pending. Differential would include diverticulitis versus UTI but she is having no urinary symptoms. Clinically I do not think it is obstruction. Her appendix is already out. It does not appear to be gallbladder disease or pancreatitis. She does not want any thing for pain because she drove herself here and was to drive herself home. Patient doing well at 10:35 PM. Radiologist read the CAT scan acute sigmoid diverticulitis. No abscess or free air. Patient comfortable being discharged home. She will be given a dose of Cipro and Flagyl here. She has been treated with those before for other episodes of diverticulitis. [place] for pain. Prescription to be filled here and to be discharged with them. History & Record Review Discussion w/independent historian: Patient Additional record(s) reviewed:: Prior inpatient record, Prior outpatient record, Prior ED visit and Prior labs Lab Data Attestation: I reviewed the patient's lab results. Lab results narrative: CBC shows white count 9.9. H&H 12.5 and 36. Platelets 322. UA shows no nitrates. 0 reds. 0 whites. 2+ bacteria. Labs: Laboratory Results - last 24 hr 09/21/24 09/21/24 21:23 21:25 WBC 9.9 RBC 4.49 Hgb 12.5 Hct 36.8 L MCV 82.0 MCH 27.8 MCHC 34.0 RDW Std Deviation 40.3 RDW Coeff of Shanda 13.5 Plt Count 322 MPV 8.9 Immature Gran % (Auto) 0.300 Neut % (Auto) 68.1 Lymph % (Auto) 19.6 [place] % (Auto) 10.0 Eos % (Auto) 1.5 Baso % (Auto) 0.5 Absolute Neuts (auto) 6.8 Absolute Lymphs (auto) 1.94 Nucleated RBC % 0 Sodium 137 Potassium 4.1 Chloride 101 Carbon Dioxide 23.5 Anion Gap 13 BUN 8 Creatinine 0.80 Estim Creat Clear Calc 67.63 Est GFR (MDRD) Non-Af 79 BUN/Creatinine Ratio 9.8 L Glucose 98 Calcium 9.1 Total Bilirubin 0.52 AST 21 ALT 21 Alkaline Phosphatase 114 H Total Protein 7.2 Albumin 4.3 Globulin 3.0 Albumin/Globulin Ratio 1.4 Lipase 21 Urine Color Yellow Urine Clarity Sl. Cloudy Urine pH 7.0 Ur Specific [place] 1.015 Urine Protein 15 H Urine Glucose (UA) Normal Urine Ketones Negative Urine Occult Blood 50 H Urine Nitrite Negative Urine Bilirubin Negative Urine Urobilinogen Normal Ur Leukocyte Esterase 500 H Urine RBC 0-5 SEEN Urine WBC 0-5 SEEN Ur Squamous Epith Cells 0-5 SEEN Urine Bacteria 2+ Urine Mucus 0 SEEN Radiography Diagnostic Testing: Clinical Impression(s) from Imaging Studies Abdomen/Pelvis CT 09/21/24 21:20 IMPRESSION: Findings consistent with acute sigmoid diverticulitis. No abscess formation or free air. Reading Location: [facility] Discharge Plan Triage Chief Complaint: Abd Pain ED Provider: Yandel Lujan Dx/Rx/DC Orders Clinical Impression: Abdominal pain, Acute diverticulitis Instructions: Abdominal Pain, ED Diverticulitis Prescriptions: New ciprofloxacin HCl [Cipro] 500 mg tablet 500 mg PO BID 10 Days Qty: 20 0RF metronidazole 500 mg tablet 500 mg PO TID 10 Days Qty: 30 0RF hydrocodone-acetaminophen 5-325 mg tablet 1 tab PO Q4H PRN PRN (Reason: Pain) 3 Days Qty: 12 0RF No Action ibuprofen 600 mg tablet 600 mg PO 4X/DAY PRN (Reason: mild to moderate pain) pantoprazole 40 mg tablet,delayed release (DR/EC) 40 tablet PO QODAY amitriptyline 25 mg tablet 25 mg PO DAILY Patient Comments: aspirin 81 MG tablet,chewable 81 mg PO DAILY@0800 Multiple Vitamin, Womens 1 EACH tablet 1 tab PO DAILY acetaminophen 325 MG tablet 650 mg PO Q4H PRN PRN (Reason: Pain) Qty: 0 0RF pravastatin 40 mg tablet 80 mg PO DAILY Patient Comments: TAKE 1 TABLET BY MOUTH EVERY DAY amitriptyline 50 mg tablet 50 mg PO QHS nortriptyline 25 mg capsule 25 - 50 mg PO QHS anastrozole 1 mg tablet 1 mg PO DAILY Qty: 90 3RF Primary Care Provider: Espinoza Lora Referrals: Espinoza Lora DO [Primary Care Provider] - 3-5 Days if not improving Activity Restrictions/Additional Instructions: Plenty of fluids and rest. Increase diet slowly as tolerated. Plain Tylenol if not strong enough [place] for pain. Both antibiotics the Cipro 1 pill twice a day. Flagyl 1 pill 3 times a day. Take all antibiotics for the entire 10 days. Follow-up with your doctor if not improving or return if feeling a lot worse. Print Language: Maori Disposition Disposition: Home, Self Care
[2024-09-21 21:29] LABS: Mucous, Urine 0 SEEN /hpf (<or=2+)
[2024-09-21 21:34] LABS: Absolute Lymphocyte Count 1.94 X10^3/uL (0.83-4.51); Absolute Neutrophil Count 6.8 X10^3/uL (2.0-7.7); Basophil# 0.05 X10^3/uL; Basophil% 0.5 % (0-1); Eosinophil# 0.15 X10^3/uL; Eosinophils% 1.5 % (0-5); Hematocrit 36.8 % (37-47); Hemoglobin 12.5 g/dL (12.0-15.0); Lymphocyte # 1.94 X10^3/ul (0.83-4.51); Lymphocyte % 19.6 % (19-41); Mean Corpuscular Hgb 27.8 pg (27.0-32.0); Mean Platelet Vol. 8.9 fl (6.2-12.0); Monocyte# 0.99 X10^3/uL; NRBC Flagged by Analyzer 0 % (0-5); Neutrophil # 6.75 X10^3/uL (2.7-7.7); Neutrophil % 68.1 % (47-70); Platelet Count 322 K/mm3 (150-450); RBC Distribution Width CV 13.5 % (11.6-14.6); RBC Distribution Width SD 40.3 fl (35.1-43.9); Red Blood Count 4.49 M/mm3 (4.2-5.4); White Blood Count 9.9 K/mm3 (4.4-11.0)
[2024-09-21 21:35] LABS: Color, Urine Yellow (Yellow); Glucose, Dipstick Normal (Normal); Ketone-Dipstick Negative (Negative); Leukocyte Esterase-Dipstick 500 /ul (Negative); Nitrite-Dipstick Negative (Negative); Occult Blood-Urine 50 /ul (Negative); Protein-Dipstick 15 mg/dl (Negative); Specific Gravity, Urine 1.015 (1.002-1.030); Urine Bilirubin Dipstick Negative (Negative); Urine Clarity Sl. Cloudy (Clear); Urine Urobilinogen Normal (Normal)
[2024-09-21 21:42] LABS: Bacteria 2+ /hpf (None Seen); Red Blood Cells-Urine 0-5 SEEN /hpf (0-5); White Blood Cells 0-5 SEEN /hpf (0-5)
[2024-09-21 21:43] LABS: Squamous Epithelial Cells - UA 0-5 SEEN /hpf (5-10)
[2024-09-21 22:08] LABS: Lipase 21 U/L (13-75)
[2024-09-21] MEDS: Ciprofloxacin 500 MG Tablet PO (22:12)
[2024-09-21] MEDS: metroNIDAZOLE 500 MG Tablet PO (22:12)
[2024-09-21 22:13] LABS: ALB/GLOB Ratio 1.4 RATIO (0.9-2.4); AST(SGOT) 21 U/L (<=31); Alanine Aminotransfer ALT/SGPT 21 U/L (<=34); Albumin, Serum 4.3 g/dL (3.4-4.8); Alkaline Phosphatase 114 U/L (35-104); Anion Gap 13 (5-15); BUN 8 mg/dL (4-19); BUN/Creat Ratio 9.8 RATIO (10-20); Calcium,Total 9.1 mg/dL (7.6-11.0); Carbon Dioxide 23.5 mmol/L (21.0-32.0); Chloride 101 mmol/L (98-108); EST Glomerular Filtration Rate 79 (>60); Estimated Creatinine Clearance 67.63 ml/min (50-250); Glucose 98 mg/dL (70-99); Potassium 4.1 mmol/L (3.3-5.1); Protein, Total 7.2 g/dL (5.9-8.4); Sodium Level 137 mmol/L (133-145); Total Bilirubin 0.52 mg/dL (0.00-1.30)
[2024-09-21 22:41] VITALS: BP 154/83; PULSE 84; RESP 16; TEMP 36.6; O2SAT 99
== END 2024-09-21 22:42 | disposition home or self-care (01) ==
LOC: ED 21:34
PROVIDERS: Emergency Provider Emergency Medicine; PCP Preventive Medicine Occupational Medicine; Visit Provider Emergency Medicine
DX: R10.31 Right lower quadrant pain (principal); K57.92 Diverticulitis of intestine, part unspecified, without perforation or abscess without bleeding; Z90.710 Acquired absence of both cervix and uterus; Z87.891 Personal history of nicotine dependence; R10.32 Left lower quadrant pain; Z90.49 Acquired absence of other specified parts of digestive tract; Z85.3 Personal history of malignant neoplasm of breast; K21.9 Gastro-esophageal reflux disease without esophagitis; Z79.899 Other long term (current) drug therapy
CPT/HCPCS: 74177; 80053; 81001; 83690; 85025; 99284; Q9967; A4216

== ENCOUNTER → 2025-01-02 | Outpatient (CLI) | payer MEDICARE, OTHER, SELFPAY ==
--- NOTE | 2025-01-02 09:38 | NM_ITS ---
PROCEDURE: BONE SCAN WHOLE BODY 01/02/2025 REASON FOR EXAM: HIP SHOULDER PAIN;ELEVATED ALK PHOS H/O BREASTCA TECHNIQUE: Anterior and posterior whole-body bone scan after radiopharmaceutical administration. RADIOPHARMACEUTICAL: 26.5 mCi Technetium-99m MDP IV COMPARISON: None. FINDINGS: Degenerative changes throughout the spine are noted, along with lumbar levoscoliosis Mild degenerative changes are seen of the knees, [id number]-left. No findings are seen to suggest the presence of osseous metastatic disease. NM/Bone Scan Whole Body IMPRESSION: No scintigraphic evidence of osseous metastatic disease. Reading Location: [place] [id number]
== END | disposition home or self-care (01) ==
LOC: NM 09:37
PROVIDERS: Referring Provider Nurse Practitioner Family; Visit Provider Nurse Practitioner Family
DX: M25.511 Pain in right shoulder (principal); Z85.3 Personal history of malignant neoplasm of breast; M25.551 Pain in right hip; M25.552 Pain in left hip
CPT/HCPCS: 78306; A9503

== ENCOUNTER 2025-04-15 10:07 | Emergency (ER) | payer MEDICARE, OTHER, SELFPAY ==
[2025-04-15] VITALS (7 sets, daily range): BP systolic 150–196; BP diastolic 80–116; PULSE 79–124; RESP 14–18; TEMP 36.6; O2SAT 95–99; BMI 30.2
--- NOTE | 2025-04-15 10:22 | CT_ITS ---
EXAM: NONCONTRAST CT SCAN OF THE HEAD CLINICAL HISTORY: Dizziness COMPARISON: December 31, 2022 TECHNIQUE: Serial axial series through the head were obtained without contrast. 2-D coronal and sagittal reformats were then obtained. 796 mGy-cm FINDINGS: Brain: There is no acute large territorial infarct, intracranial hemorrhage, midline shift or mass effect. There are atherosclerotic vascular calcifications involving the bilateral carotid siphons. The sella and pineal gland regions appear unremarkable. Evaluation of the brainstem is limited due to beam hardening artifact. There is no evidence of cerebellar tonsillar herniation. Ventricles: There is no acute hydrocephalus. Basilar cisterns are patent. Paranasal sinuses: Mucosal thickening is visible in the left aspect of the sphenoid sinus. The remainder of the paranasal sinuses are clear. Mastoid air cells: Well-aerated. Calvarium: The bony calvarium is intact. Orbits: The bilateral globes are symmetric, without retrobulbar compressive mass lesion or hemorrhage. CT/Brain/Head without Contrast IMPRESSION: Mucosal thickening is visible in the left aspect of the sphenoid sinus. No acute intracranial pathology. Reading Location: [facility]
--- NOTE | 2025-04-15 10:23 | EKG12_ITS ---
Test Reason : DIZZINESS Blood Pressure : */* mmHG Vent. Rate : 103 BPM Atrial Rate : 103 BPM P-R Int : 184 ms QRS Dur : 74 ms QT Int : 318 ms P-R-T Axes : 40 22 45 degrees QTcB Int : 416 ms Sinus tachycardia Otherwise normal ECG Confirmed by Layo Guaman ([id number]), school photograph editor TEJAS CORTES ([id number]) on 04/16/2025 10:35:15 AM Referred By: Confirmed By: Layo Guaman
--- NOTE | 2025-04-15 10:24 | EX.ED.DYSGE1 ---
HPI History of Present Illness Chief Complaint: Dizziness Informant: patient Onset/Context/Timing Onset: Today Context: Sudden Onset Timing: Continuous Quality: Off balance "walking sideways" Location: Left side Worsened by: Nothing Relieved by: Nothing Narrative Narrative: Patient presents with dizziness that began today. Patient states it began rather suddenly. Patient states she felt like she was off balance and was "walking sideways". Patient states she walked into a gas station and leaned against the counter. Patient states that she felt like she was going to fall to her left. Patient states nothing makes it worse and nothing makes it better. Patient admits to some tingling in her left hand. Patient also admits to some blurred vision but denies any diplopia. Patient admits to some nausea but denies any vomiting. Patient denies any headaches. Patient denies any tinnitus or hearing changes. [facility] Medical History Screening for breast cancer Hip pain, bilateral Right shoulder pain Hypercalcemia History of breast cancer External hemorrhoid Chest pain Osteopenia Lymphedema Breast cancer of lower-outer quadrant of left female breast Wears contact lenses Cancer Arthritis High cholesterol Injury of head and neck Restless legs History of diverticulitis Former smoker Osteoarthritis GERD (gastroesophageal reflux disease) Home Medications Medication Instructions Recorded Last Taken Type aspirin 81 mg chewable tablet 81 mg PO DAILY@0800 03/23/14 09/29/23 History [id number]-Ua-vrpw-minerals 1 tab PO DAILY 10/17/16 09/29/23 History (Multiple Vitamin, Womens tablet) acetaminophen 325 mg tablet 650 mg (2 x 325 mg) PO Q4H PRN PRN 10/19/16 Unknown Rx Pain #0 tabs ibuprofen 600 mg tablet 600 mg PO 4X/DAY PRN mild to 01/19/21 Unknown History moderate pain pravastatin 40 mg tablet 80 mg PO DAILY 09/27/21 09/29/23 History amitriptyline 50 mg tablet 50 mg PO QHS 09/21/24 Unknown History magnesium aspart,citrate,oxide 400 mg PO DAILY 12/19/24 Unknown History pantoprazole 20 mg tablet,delayed 20 mg PO QDAY 02/20/25 Unknown History release anastrozole 1 mg tablet 1 mg PO DAILY #90 TABLETS 04/01/25 Unknown Rx diazepam 2 mg tablet 2 mg PO TID PRN PRN Vertigo #10 11/11/25 Unknown Rx TABLETS Allergy/AdvReac Type Severity Reaction Status Date / Time dexlansoprazole (From AdvReac Mild gi upset Verified 04/15/25 10:09 Dexilant) Family History Father Heart disease Myocardial infarction Mother Diabetes Brother Diabetes Sister Diabetes Surgical History History of lumpectomy of left breast (~02/2021) History of repair of rectocele History of breast biopsy (~01/2021) History of colonoscopy History of cervical discectomy History of appendectomy History of bilateral carpal tunnel release History of thumb surgery History of hysterectomy Social History Smoking Status: Former smoker Tobacco: How many years used: 20 second hand exposure: No details: occasionally substance use type: does not use rocco/sabianist: Jainism seatbelt use: always do you feel safe at home: Yes ROS ROS ED Constitutional Constitutional ED: Denies chills or fever(s) Eyes Eyes: Reports blurry vision; Denies change in vision ENT ENT ED: Denies rhinorrhea or sore throat Cardiovascular Cardiovascular: Denies chest pain or palpitations Respiratory/Chest Respiratory/Chest: Denies cough or dyspnea Gastrointestinal Gastrointestinal: Reports nausea; Denies vomiting Genitourinary Genitourinary ED: Denies dysuria or hematuria Musculoskeletal Musculoskeletal: Denies back pain or neck pain Integumentary Denies abscess or rash Neurologic Neurologic: Denies headache(s) or weakness Allergic/Immunologic Allergic/Immunologic ED: Denies mouth swelling or urticaria EXAM Physical Exam Const Vital Signs: 04/15/25 10:09 04/15/25 10:32 04/15/25 11:39 Temperature 97.9 F Temperature Source Oral Pulse Rate 124 H 87 Pulse Rate [Lying] 88 Pulse Rate [Sitting (for 1 minute prior to obtaining)] 88 Pulse Rate [Standing (for 1 minute prior to obtaining)] 114 H Respiratory Rate 18 16 Blood Pressure 196/94 H 169/103 H Blood Pressure [Lying] 154/97 H Blood Pressure [Sitting (for 1 minute prior to obtaining)] 166/116 H Blood Pressure [Standing (for 1 minute prior to obtaining)] 162/111 H Blood Pressure Mean 128 125 Blood Pressure Mean [Lying] 116 Blood Pressure Mean [Sitting (for 1 minute prior to obtaining)] 132 Blood Pressure Mean [Standing (for 1 minute prior to obtaining)] 128 Pulse Ox 98 96 Oxygen Delivery Method Room Air 04/15/25 12:07 04/15/25 13:00 04/15/25 14:00 Temperature Temperature Source Pulse Rate 79 86 82 Pulse Rate [Lying] Pulse Rate [Sitting (for 1 minute prior to obtaining)] Pulse Rate [Standing (for 1 minute prior to obtaining)] Respiratory Rate 16 17 14 Blood Pressure 160/96 H 165/97 H 152/89 H Blood Pressure [Lying] Blood Pressure [Sitting (for 1 minute prior to obtaining)] Blood Pressure [Standing (for 1 minute prior to obtaining)] Blood Pressure Mean 117 119 110 Blood Pressure Mean [Lying] Blood Pressure Mean [Sitting (for 1 minute prior to obtaining)] Blood Pressure Mean [Standing (for 1 minute prior to obtaining)] Pulse Ox 96 95 96 Oxygen Delivery Method Room Air Room Air 04/15/25 15:03 Temperature 97.9 F Temperature Source Pulse Rate 105 H Pulse Rate [Lying] Pulse Rate [Sitting (for 1 minute prior to obtaining)] Pulse Rate [Standing (for 1 minute prior to obtaining)] Respiratory Rate 15 Blood Pressure 150/80 H Blood Pressure [Lying] Blood Pressure [Sitting (for 1 minute prior to obtaining)] Blood Pressure [Standing (for 1 minute prior to obtaining)] Blood Pressure Mean 103 Blood Pressure Mean [Lying] Blood Pressure Mean [Sitting (for 1 minute prior to obtaining)] Blood Pressure Mean [Standing (for 1 minute prior to obtaining)] Pulse Ox 99 Oxygen Delivery Method Positive well nourished and well developed Constitutional Narrative: BMI is 30.2. General Appearance ED: well developed and NAD HEENT Reports moist mucous membranes Eyes PERRL and EOMs intact bilaterally Eyes Narrative: There is mild nystagmus with left lateral gaze. There is no reproducible symptoms with this. Neck supple and no JVD Resp normal respiratory effort and clear to auscultation bilaterally Cardio regular rate and regular rhythm GI non-tender and non-distended Palpation: soft Extremity normal to inspection General Extremety ED: Negative for edema or tenderness General Extremity: Negative for edema Neuro oriented x3, CN's II-XII intact bilaterally and no sensory deficits noted Sensorium / Orientation: alert Motor Exam: strength 5/5 throughout Psych mental status grossly normal MDM MDM MDM Narrative Medical decision making narrative: Differential diagnosis includes vertigo, stroke, electrolyte abnormality, dehydration, urinary tract infection, cardiac dysrhythmia, cardiac ischemia, and anxiety. EKG will be obtained to assess for cardiac dysrhythmia and cardiac ischemia. CT scan of the brain will be obtained to assess for any stroke intracranial bleeding. CBC will be obtained to assess for leukocytosis and anemia. Basic metabolic profile will be obtained to assess for electrolyte abnormality and renal function. Urinalysis will be obtained to assess for urinary tract infection and hematuria. Lab Data Attestation: I reviewed the patient's lab results. Lab results narrative: CBC was reviewed and was within normal limits. Basic metabolic profile was reviewed and was within normal limits. Urinalysis was reviewed. Leukocyte esterase was 500. There are no white blood cells or epithelial cells noted. There is no bacteria noted. Labs: Laboratory Results - last 24 hr 04/15/25 04/15/25 10:38 11:28 WBC 5.7 RBC 5.09 Hgb 13.9 Hct 42.4 MCV 83.3 MCH 27.3 MCHC 32.8 RDW Std Deviation 40.9 RDW Coeff of Shanda 13.3 Plt Count 361 MPV 9.0 Immature Gran % (Auto) 0.300 Neut % (Auto) 54.0 Lymph % (Auto) 33.7 [place] % (Auto) 8.2 Eos % (Auto) 2.8 Baso % (Auto) 1.0 Absolute Neuts (auto) 3.1 Absolute Lymphs (auto) 1.93 Nucleated RBC % 0 Sodium 138 Potassium 4.2 Chloride 100 Carbon Dioxide 25.3 Anion Gap 13 BUN 9 Creatinine 0.72 Estim Creat Clear Calc 65.93 Est GFR (MDRD) Non-Af 90 BUN/Creatinine Ratio 12.7 Glucose 95 Calcium 10.3 Urine Color Yellow Urine Clarity Clear Urine pH 7.0 Ur Specific [place] 1.005 Urine Protein Negative Urine Glucose (UA) Normal Urine Ketones Negative Urine Occult Blood 10 H Urine Nitrite Negative Urine Bilirubin Negative Urine Urobilinogen Normal Ur Leukocyte Esterase 500 H Urine RBC 0 SEEN Urine WBC 0 SEEN Ur Squamous Epith Cells 0 SEEN Urine Bacteria 0 SEEN Urine Mucus 0 SEEN Radiography Diagnostic Testing: Clinical Impression(s) from Imaging Studies Brain CT 04/15/25 10:22 IMPRESSION: Mucosal thickening is visible in the left aspect of the sphenoid sinus. No acute intracranial pathology. Reading Location: [facility] CT scan of the brain was obtained. There is no acute intracranial abnormality. This was interpreted by the radiologist and was also independently reviewed by myself. EKG Initial EKG: Attestation: I personally reviewed and interpreted this EKG as follows: Interpretation: No Acute Injury Pattern and Sinus Tachycardia (103) Comments: EKG was obtained. On my independent interpretation, it showed a sinus tachycardia with a rate of 103. MN interval, QRS interval, and QTc intervals were all normal. [place] was normal. There are no acute ST or T wave changes. Prior EKG tracings: available for review Prior: Unchanged (12/31/2022) Follow-up EKG: Attestation: I personally reviewed and interpreted this EKG as follows: Interpretation: Sinus Rhythm (79) and No Acute Injury Pattern Comments: EKG was obtained. On my independent interpretation, it showed a normal sinus rhythm with a rate of 79. MN interval, QRS interval, and QTc intervals were all normal. [place] was normal. There are no acute ST or T wave changes. Prior EKG tracings: available for review Prior: Unchanged Treatment and Re-Evaluation :: Patient was given a dose of Valium here. Patient was feeling better on reevaluation. Patient was advised that this is likely peripheral vertigo. Patient was instructed to follow-up with her primary care physician in 5 to 7 days. Patient was given a prescription for Valium. Patient was instructed to return if worse in any way. Patient understood and was agreeable with the plan. All questions were answered. Discharge Plan Triage Chief Complaint: Dizziness ED Provider: Jason Randhawa Dx/Rx/DC Orders Clinical Impression: Vertigo, HTN (hypertension) Instructions: ED Vertigo, Unspecified Prescriptions: New diazepam [diazepam] 2 mg tablet 2 mg PO TID PRN PRN (Reason: Vertigo) Qty: 10 0RF No Action ibuprofen 600 mg tablet 600 mg PO 4X/DAY PRN (Reason: mild to moderate pain) magnesium aspart,citrate,oxide 400 mg magnesium capsule 400 mg PO DAILY pantoprazole 20 mg tablet,delayed release (DR/EC) 20 mg PO QDAY aspirin 81 MG tablet,chewable 81 mg PO DAILY@0800 Multiple Vitamin, Womens 1 EACH tablet 1 tab PO DAILY acetaminophen 325 MG tablet 650 mg PO Q4H PRN PRN (Reason: Pain) Qty: 0 0RF pravastatin 40 mg tablet 80 mg PO DAILY Patient Comments: TAKE 1 TABLET BY MOUTH EVERY DAY amitriptyline 50 mg tablet 50 mg PO QHS anastrozole 1 mg tablet 1 mg PO DAILY Qty: 90 3RF Primary Care Provider: Care Physician,No Primary Referrals: Care Physician,No Primary [Primary Care Provider, Medical] Doctor,Your [Non-Staff, None] - 3-5 Days Print Language: Faroese Disposition Disposition: Home, Self Care Discharge Date/Time: 04/15/25 15:04
[2025-04-15 10:47] LABS: Hematocrit 42.4 % (37-47); Hemoglobin 13.9 g/dL (12.0-15.0); Immature Granulocytes Count 0.020 X10^3/uL (0.0-0.0); Mean Corp Hgb Conc 32.8 g/dL (32-36); Mean Corpuscular Volume 83.3 fL (81-99); Mean Platelet Vol. 9.0 fl (6.2-12.0); NRBC Flagged by Analyzer 0 % (0-5); Platelet Count 361 K/mm3 (150-450); RBC Distribution Width CV 13.3 % (11.6-14.6); RBC Distribution Width SD 40.9 fl (35.1-43.9); Red Blood Count 5.09 M/mm3 (4.2-5.4); White Blood Count 5.7 K/mm3 (4.4-11.0)
[2025-04-15 11:03] LABS: Anion Gap 13 (5-15); BUN 9 mg/dL (4-19); BUN/Creat Ratio 12.7 RATIO (10-20); Calcium,Total 10.3 mg/dL (7.6-11.0); Carbon Dioxide 25.3 mmol/L (21.0-32.0); Chloride 100 mmol/L (98-108); Estimated Creatinine Clearance 65.93 ml/min (50-250); Glucose 95 mg/dL (70-99); Potassium 4.2 mmol/L (3.3-5.1)
[2025-04-15 11:33] LABS: Color, Urine Yellow (Yellow); Glucose, Dipstick Normal (Normal); Ketone-Dipstick Negative (Negative); Leukocyte Esterase-Dipstick 500 /ul (Negative); Nitrite-Dipstick Negative (Negative); Occult Blood-Urine 10 /ul (Negative); Protein-Dipstick Negative (Negative); Specific Gravity, Urine 1.005 (1.002-1.030); Urine Bilirubin Dipstick Negative (Negative)
[2025-04-15 11:34] LABS: Mucous, Urine 0 SEEN /hpf (<or=2+); Red Blood Cells-Urine 0 SEEN /hpf (0-5)
[2025-04-15] MEDS: 0.9% Normal Saline (1000mL) 1,000 ML 999 ML IV (11:38)
--- NOTE | 2025-04-15 14:09 | EKG12_ITS ---
Test Reason : REPEAT-CP Blood Pressure : */* mmHG Vent. Rate : 79 BPM Atrial Rate : 79 BPM P-R Int : 176 ms QRS Dur : 68 ms QT Int : 362 ms P-R-T Axes : 42 10 34 degrees QTcB Int : 415 ms Sinus rhythm with occasional Premature ventricular complexes Possible Inferior infarct , age undetermined Abnormal ECG Confirmed by Layo Guaman ([id number]), desk editor TEJAS CORTES ([id number]) on 04/16/2025 10:35:06 AM Referred By: ELVIN Confirmed By: Layo Guaman
--- NOTE | 2025-04-15 20:36 | CM.ED ---
Social Work Reason for visit: No PCP Patient stated that her long time doctor retired and she did attempt to see the replacement doctor, however she was not happy with the service. Patient was accepting of [facility] provider list. No further needs at this time. Gema Treadwell, [employer]ITION[employer] MANAGER, HELP DESK CONSULTANT
[2025-04-16 07:48] LABS: Squamous Epithelial Cells - UA 0-5 SEEN /hpf (5-10); Transitional Epithelial - Ur 0-5 SEEN /hpf (0-5)
== END 2025-04-15 15:04 | disposition home or self-care (01) ==
PROVIDERS: Emergency Provider Emergency Medicine; Visit Provider Emergency Medicine
DX: R42 Dizziness and giddiness (principal); I10 Essential (primary) hypertension; Z87.891 Personal history of nicotine dependence; Z85.3 Personal history of malignant neoplasm of breast; E78.00 Pure hypercholesterolemia, unspecified; Z79.899 Other long term (current) drug therapy; K21.9 Gastro-esophageal reflux disease without esophagitis; Z90.49 Acquired absence of other specified parts of digestive tract; Z90.710 Acquired absence of both cervix and uterus
CPT/HCPCS: 70450; 80048; 81001; 85025; 93005; 96360; 99284; A4216